=== PATIENT | female | born 1960 | race Caucasian/White ===

== ENCOUNTER 2017-06-15 03:27 | Emergency (ER) | payer BC ==
[~2017-06-15] VITALS: Ht 167.6 cm; Wt 65.9 kg
[2017-06-15 03:30] VITALS: BP 175/84; PULSE 99; RESP 16; TEMP 98.9; O2SAT 99
[2017-06-15] MEDS ORDERED: ONDANSETRON HCL 4 MG/2 ML VIAL IV PRN (03:45)
[2017-06-15] MEDS ORDERED: SODIUM CHLORIDE 0.9% FLUSH 10 ML FLUSH IV FLUSH PRN (03:45)
[2017-06-15] MEDS ORDERED: SODIUM CHLOR 0.9% 1000 ML INJ 1,000 ML IV ONE ×2 (04:15→04:30)
--- NOTE | 2017-06-15 04:23 | PD ---
HPI . Vomiting Chief Complaint: GI Complaint Time Seen by Provider: 03:45 Travel History International Travel<30 days: No Contact w/Intl Traveler<30days: No Traveled to known affect area: No History of Present Illness HPI This is a 57 year old female who presents to the [place] ED with 9 hours of sudden onset nausea and vomiting. She ate around 5pm and since then has had constant vomiting. She has trouble keeping water down. She is also complaining of diffuse abdominal pain and lightheadedness.She denies any fevers , chills, hematemesis, melena, or syncopal episodes. She has no past medical history and takes no medication. She is allergic to Penicillin and Sulfa. She states that the severity of her emesis has been constant vomiting. There have been no modifying factors. [facility] Past Medical History Medical History: Denies Significant Hx : 2 Para: 2 Tubal Ligation: Yes Past Surgical History Surgical History: No Previous Surgery Social History Alcohol Use: Yes (3-5 days a week) Tobacco Use: Yes (1ppd) Substance Use: No Allergies-Medications (Allergen,Severity, Reaction): Coded Allergies: Penicillins (Verified Allergy, Unknown, 06/15/17) Sulfa (Sulfonamide Antibiotics) (Verified Allergy, Unknown, 06/15/17) Reported Meds & Prescriptions Reported Meds & Active Scripts Active No Active Prescriptions or Reported Medications Review of Systems Except as stated in HPI: all other systems reviewed are Neg General / Constitutional: No: Fever, Chills HENT: Positive: Lightheadedness, Sore Throat, No: Headaches, Rhinorrhea, Congestion Cardiovascular: No: Chest Pain or Discomfort, Palpitations Respiratory: No: Cough, Shortness of Breath Gastrointestinal: Positive: Nausea, Vomiting, Abdominal Pain, No: Hematemesis, Hematochezia, Constipation Genitourinary: No: Urgency, Frequency, Hematuria Skin: No Rash Neurologic: Positive: Dizziness, No: Weakness, Syncope Physical Exam Narrative GENERAL: The patient was curled up on the exam bed. She appeared to be very nauseated. She is alert and oriented x3. SKIN: Warm and dry. Good turgor. Facial pallor. HEAD: Atraumatic. Normocephalic. EYES: Pupils equal and round. ENT: No nasal bleeding or discharge. Mucous membranes dry. NECK: Trachea midline. No lymphadenopathy. CARDIOVASCULAR: Regular rate and rhythm. No murmurs or extra beats. RESPIRATORY: No accessory muscle use. Clear to auscultation bilaterally GASTROINTESTINAL: Abdomen is soft and non distended. There is mild diffuse tenderness and focal suprapubic tenderness. Bowel sounds are active. MUSCULOSKELETAL: No obvious deformities. No edema. NEUROLOGICAL: Awake and alert. No obvious cranial nerve deficits. Motor grossly within normal limits. Normal speech. PSYCHIATRIC: Appropriate mood and affect; insight and judgment normal. Data Data Last Documented VS Vital Signs Date Time Temp Pulse Resp B/P (MAP) Pulse Ox O2 Delivery O2 Flow Rate FiO2 06/15/17 03:30 98.9 99 16 175/84 (114) 99 Room Air Orders Orders Vital Signs (Adult) Q4H (06/15/17 03:45) Activity Oob Ad Aminata (06/15/17 03:45) Sodium Chloride 0.9% Flush (Ns Flush) (06/15/17 03:45) Sodium Chloride 0.9% Flush (Ns Flush) (06/15/17 09:00) Ondansetron Inj (Zofran Inj) (06/15/17 03:45) Sodium Chlor 0.9% 1000 Ml Inj (Ns 1000 M (06/15/17 04:15) Urinalysis - C+S If Indicated (06/15/17 04:12) Sodium Chlor 0.9% 1000 Ml Inj (Ns 1000 M (06/15/17 04:30) Prochlorperazine Inj (Compazine Inj) (06/15/17 04:30) Diphenhydramine Inj (Benadryl Inj) (06/15/17 04:30) Complete Blood Count With Diff (06/15/17 05:18) Comprehensive Metabolic Panel (06/15/17 05:18) Labs Laboratory Tests Test 06/15/17 04:30 06/15/17 05:04 Urine Color YELLOW Urine Turbidity CLEAR Urine pH 6.0 Urine Specific Butner 1.026 Urine Protein TRACE mg/dL Urine Glucose (UA) TRACE mg/dL Urine Ketones 150 mg/dL Urine Occult Blood NEG Urine Nitrite NEG Urine Bilirubin NEG Urine Urobilinogen 4.0 MG/DL Urine Leukocyte Esterase NEG Urine RBC 1 /hpf Urine WBC 1 /hpf Urine Squamous Epithelial Cells 4 /hpf Urine Bacteria RARE /hpf Urine Hyaline Casts 2 /lpf Urine Mucus FEW /lpf Microscopic Urinalysis Comment CULT NOT INDICATED White Blood Count 19.3 TH/MM3 Red Blood Count 5.50 MIL/MM3 Hemoglobin 16.6 GM/DL Hematocrit 50.3 % Mean Corpuscular Volume 91.3 FL Mean Corpuscular Hemoglobin 30.1 PG Mean Corpuscular Hemoglobin Concent 33.0 % Red Cell Distribution Width 14.4 % Platelet Count 287 TH/MM3 Mean Platelet Volume 10.5 FL Neutrophils (%) (Auto) 94.0 % Lymphocytes (%) (Auto) 3.1 % Monocytes (%) (Auto) 2.5 % Eosinophils (%) (Auto) 0.0 % Basophils (%) (Auto) 0.4 % Neutrophils # (Auto) 18.1 TH/MM3 Lymphocytes # (Auto) 0.6 TH/MM3 Monocytes # (Auto) 0.5 TH/MM3 Eosinophils # (Auto) 0.0 TH/MM3 Basophils # (Auto) 0.1 TH/MM3 CBC Comment DIFF FINAL Differential Comment Blood Urea Nitrogen 15 MG/DL Creatinine 0.84 MG/DL Random Glucose 178 MG/DL Total Protein 8.1 GM/DL Albumin 4.1 GM/DL Calcium Level 9.4 MG/DL Alkaline Phosphatase 95 U/L Aspartate Amino Transf (AST/SGOT) 30 U/L Alanine Aminotransferase (ALT/SGPT) 30 U/L Total Bilirubin 0.8 MG/DL Sodium Level 136 MEQ/L Potassium Level 4.2 MEQ/L Chloride Level 100 MEQ/L Carbon Dioxide Level 23.8 MEQ/L Anion Gap 12 MEQ/L Estimat Glomerular Filtration Rate 70 ML/MIN MDM Medical Decision Making Medical Screen Exam Complete: Yes Emergency Medical Condition: Yes Differential Diagnosis Gastroenteritis, dehydration, food poisoning. Narrative Course This is a 57-year-old female who presents with sudden onset nausea and vomiting and abdominal pain. Prior to eating dinner around 5 PM she felt fine her and her then eat anything thing for dinner except she ate eggs too. She was given Zofran for Nausea and fluids for dehydration. The patient was initially treated with Zofran IV fluids. She continued to complain with nausea following Zofran. This was followed up with Compazine/ Benadryl. The patient is now resting comfortably. CBC & BMP Diagram 06/15/17 05:04 Total Protein 8.1, Albumin 4.1, Calcium Level 9.4, Alkaline Phosphatase 95, Aspartate Amino Transf (AST/SGOT) 30, Alanine Aminotransferase (ALT/SGPT) 30, Total Bilirubin 0.8 UA shows a specific gravity of 1.026, ketones 150. No evidence of infection. Diagnosis Primary Impression: Nausea & vomiting Qualified Codes: R11.2 - Nausea with vomiting, unspecified Additional Impression: Abdominal pain Qualified Codes: R10.84 - Generalized abdominal pain Patient Instructions: Acute Nausea and Vomiting (DC), General Instructions Scripts No Active Prescriptions or Reported Meds Disposition: 01 DISCHARGE HOME Condition: Stable Chetna Duggan MD Jun 15, 2017 04:22
[2017-06-15] MEDS ORDERED: PROCHLORPERAZINE INJ 10 MG/2 ML VIAL IV PUSH ONE (04:30)
[2017-06-15] MEDS ORDERED: diphenhydrAMINE HCL 50 MG/ML VIAL IV PUSH ONE (04:30)
[2017-06-15 04:51] LABS: BACTERIA, URINE RARE /hpf; BLOOD, URINE NEG (NEG); GLUCOSE,URINE TRACE mg/dL (NEG); HYALINE CAST, URINE 2 /lpf (RARE); KETONE, URINE 150 mg/dL (NEG); MUCUS URINE FEW /lpf (OCC); NITRITE,URINE NEG (NEG); SQUAMOUS EPITHELIAL CELL URINE 4 /hpf (0-5); URINE COLOR YELLOW (YELLW/STRAW)
[2017-06-15 04:57] LABS: COMMENT (UR) CULT NOT INDICATED; CULTURE IF INDICATED CULT NOT INDICATED
[2017-06-15 05:42] LABS: AUTOMATED NEUTROPHIL # 18.1 TH/MM3 (1.8-7.7); BASOPHIL # 0.1 TH/MM3 (0-0.2); BASOPHIL % 0.4 % (0.0-2.0); HEMATOCRIT 50.3 % (35.0-46.0); HEMO FLAGS DIFF FINAL; LYMPH % 3.1 % (9.0-44.0); LYMPHOCYTE # 0.6 TH/MM3 (1.0-4.8); MEAN CELL VOLUME 91.3 FL (80.0-100.0); MEAN CORPUSCULAR HEMOGLOBIN 30.1 PG (27.0-34.0); MONO % 2.5 % (0.0-8.0); PLATELET COUNT 287 TH/MM3 (150-450); RED CELL DISTRIBUTION WIDTH 14.4 % (11.6-17.2); WHITE BLOOD COUNT 19.3 TH/MM3 (4.0-11.0)
[2017-06-15 06:11] LABS: ALT (GPT) 30 U/L (10-53)
[2017-06-15 06:13] LABS: ALKALINE PHOSPHATASE 95 U/L (45-117); TOTAL BILIRUBIN ADULT 0.8 MG/DL (0.2-1.0)
[2017-06-15 06:18] LABS: ANION GAP 12 MEQ/L (5-15); AST (GOT) 30 U/L (15-37); BICARBONATE 23.8 MEQ/L (21.0-32.0); BLOOD UREA NITROGEN 15 MG/DL (7-18); CHLORIDE 100 MEQ/L (98-107); GLOMERULAR FILTRATION RATE 70 ML/MIN (>89); SODIUM (NA) 136 MEQ/L (136-145)
[2017-06-15 06:20] LABS: POTASSIUM 4.2 MEQ/L (3.5-5.1)
[2017-06-15] MEDS ORDERED: SODIUM CHLORIDE 0.9% FLUSH 10 ML FLUSH IV FLUSH SCH (09:00)
[2017-07-08] MEDS ORDERED: COMMODE 3-IN-11 MIS (14:11)
[2017-07-08] MEDS ORDERED: WHEEMIS3 (14:11)
[2017-07-13] MEDS ORDERED: ATOR1TAB18 PO (10:38)
[2017-07-13] MEDS ORDERED: ASPI81CH25 PO (10:38)
[2017-07-13] MEDS ORDERED: DILA100C PO (10:38)
== END 2017-06-15 10:52 | disposition home or self-care (01) ==
LOC: NEPC 03:27
DX: R11.2 Nausea with vomiting, unspecified (principal); R10.84 Generalized abdominal pain; R42 Dizziness and giddiness; F17.200 Nicotine dependence, unspecified, uncomplicated
CPT/HCPCS: 80053; 81001; 85025; 96374; 96375; 99284; J0780; J1200; J2405; J7030

== ENCOUNTER 2017-06-17 17:19 | Inpatient (IN) | payer BC ==
[~2017-06-17] VITALS: Ht 167.6 cm; Wt 65.4 kg
[2017-06-17 17:21] VITALS: BP 164/98; PULSE 108; RESP 20; TEMP 98.6; O2SAT 98
[2017-06-17 19:35] VITALS: BP 153/85; PULSE 87; RESP 14; O2SAT 96
[2017-06-17] MEDS ORDERED: SODIUM CHLORIDE 0.9% FLUSH 10 ML FLUSH IVF PRN ×2 (19:45→21:30)
--- NOTE | 2017-06-17 20:34 | RADRPT ---
EXAM DATE/TIME: 06/17/2017 20:22 [facility] COMPARISON: No previous studies available for comparison. INDICATIONS : Patient complains of headache and partial vision loss today. RADIATION DOSE: 30.62 CTDIvol (mGy) MEDICAL HISTORY : None SURGICAL HISTORY : Tubal ligation. ENCOUNTER: Initial ACUITY: 1 day PAIN SCALE: 0/10 LOCATION: cranial TECHNIQUE: Multiple contiguous axial images were obtained of the head. Using automated exposure control and adj ustment of the mA and/or kV according to patient size, radiation dose was kept as low as reasonably a chievable to obtain optimal diagnostic quality images. DICOM format image data is available electro nically for review and comparison. FINDINGS: CEREBRUM: The ventricles are normal for age. No evidence of midline shift, mass lesion, hemorrhage. There is a focal area of decreased density involving the medial right occipital lobe characteristic of a nonhem orrhagic subacute infarction.. No extra-axial fluid collections are seen. POSTERIOR FOSSA: The cerebellum and brainstem are intact. The 4th ventricle is midline. The cerebellopontine angle i s unremarkable. EXTRACRANIAL: The visualized portion of the orbits is intact. SKULL: The calvaria is intact. No evidence of skull fracture. CONCLUSION: There is an area of decreased density involving the medial right occipital lobe in a pattern characte ristic for a nonhemorrhagic subacute infarct. Henri Phan MD on June 17, 2017 at 20:29 Board Certified Radiologist. This report was verified electronically.
[2017-06-17 20:38] VITALS: RESP 17; O2SAT 97; O2SAT 98
[2017-06-17 20:39] LABS: AUTOMATED NEUTROPHIL # 5.4 TH/MM3 (1.8-7.7); BASOPHIL % 0.4 % (0.0-2.0); EOSINOPHIL # 0.1 TH/MM3 (0-0.4); EOSINOPHIL % 1.3 % (0.0-4.0); HEMATOCRIT 45.6 % (35.0-46.0); HEMO FLAGS DIFF FINAL; LYMPH % 22.9 % (9.0-44.0); LYMPHOCYTE # 1.8 TH/MM3 (1.0-4.8); MEAN CELL VOLUME 91.5 FL (80.0-100.0); MEAN CORPUSCULAR HGB CONC 32.8 % (32.0-36.0); MONO % 8.9 % (0.0-8.0); NEUT % 66.5 % (16.0-70.0); PLATELET COUNT 230 TH/MM3 (150-450); RED BLOOD COUNT 4.98 MIL/MM3 (4.00-5.30); RED CELL DISTRIBUTION WIDTH 14.3 % (11.6-17.2); WHITE BLOOD COUNT 8.1 TH/MM3 (4.0-11.0)
[2017-06-17 20:43] LABS: APTT (PATIENT) 24.6 SEC (24.3-30.1); INTERNATIONAL NORMALIZED RATIO 0.9 RATIO
--- NOTE | 2017-06-17 20:56 | PD ---
HPI Chief Complaint: Headache Time Seen by Provider: 19:41 Travel History International Travel<30 days: No Contact w/Intl Traveler<30days: No Traveled to known affect area: No History of Present Illness HPI 57-year-old female presents to the emergency department by private transportation the care of her spouse for evaluation of new onset left greater than right peripheral field visual loss. Patient states that starting late Thursday evening or early Thursday morning she started having multiple episodes of severe vomiting and some diarrhea. Patient was later seen on Thursday in the emergency department and treated for possible gastroenteritis with IV fluids and antiemetics. Patient was discharged to home and states she slept the remainder of Thursday through Thursday and upon awakening on Thursday noticed that she had some blurring of her vision affecting the left eye primarily said that she had difficulty seeing to the left on with her peripheral vision. Patient again was very tired and felt poorly did not go to work and slept the remainder of Thursday and awakened on Thursday stating that she could not see peripherally from her left eye at all and had some difficulty seeing peripherally from her right eye. Patient went to see her vocational rehabilitation specialist to examine her eyes and told her to come to the emergency room to be further evaluated. Patient denies any other complaint other than mild left-sided headache. Patient states on she did hit the back of her head while standing up near a bar in her home she hit the back of her head but did not have loss of consciousness visual disturbance nausea vomiting confusion or neck injury or upper or lower extremity numbness tingling or weakness or ataxia of gait. Patient today denies any sudden onset worst ever headache has noted the visual disturbance but denies any change in mentation difficulty with speech upper or lower extremity numbness tingling or weakness ataxia of gait or dizziness. Patient also denies any chest pain or palpitations. Patient's had no referred neck jaw back shoulder arm pain. Patient denies any shortness of breath or sweats. Patient denies any chest pain at this time. Patient does smoke cigarettes but denies personal history of hypertension dyslipidemia or diabetes. Patient has family history of multi-infarct dementia and her mother who just recently at age 87 with hypertension but no premature onset heart disease. Patient denies any other known medical concerns. Patient takes no prescription medications. [facility] Past Medical History Narrative Medical Occasional alcohol use positive tobacco use tubal ligation; nursing notes reviewed ?: Not : 2 Para: 2 Tubal Ligation: Yes Past Surgical History Gynecologic Surgery: Yes (tubal ) Social History Alcohol Use: Yes Tobacco Use: Yes Substance Use: No Allergies-Medications (Allergen,Severity, Reaction): Coded Allergies: Penicillins (Verified Allergy, Unknown, 06/15/17) Sulfa (Sulfonamide Antibiotics) (Verified Allergy, Unknown, 06/15/17) Reported Meds & Prescriptions Reported Meds & Active Scripts Active No Active Prescriptions or Reported Medications Review of Systems Except as stated in HPI: all other systems reviewed are Neg General / Constitutional: No: Fever, Chills Eyes: Positive: Blurred Vision, Visual changes, No: Diploplia HENT: Positive: Headaches, No: Vertigo, Lightheadedness, Neck Stiffness, Neck Pain Cardiovascular: No: Chest Pain or Discomfort, Palpitations, Diaphoresis, Syncope Respiratory: No: Shortness of Breath Gastrointestinal: Positive: Nausea, Vomiting, Diarrhea (Thursday and Thursday) Genitourinary: No: Dysuria, Flank Pain Musculoskeletal: No: Myalgias, Arthralgias Skin: No Rash Neurologic: Positive: Focal Abnormalities (except for visual disturbance), Headache, No: Weakness, Dizziness, Syncope, Coordination Problem, Ataxia, Change in Mentation, Slurred Speech (yesterday and today), Paresthesia, Incontinence, Seizures, Sensory Disturbance Psychiatric: No: Anxiety Endocrine: No: Heat Intolerance Hematologic/Lymphatic: No: Easy Bruising Physical Exam Narrative GENERAL: Well-developed well-nourished female in no acute distress no respiratory distress; GCS 15 SKIN: Warm and dry. HEAD: Atraumatic. Normocephalic. EYES: Pupils equal and round. Extraocular muscles intact. No scleral icterus. No injection or drainage. ENT: No nasal bleeding or discharge. Mucous membranes pink and moist. NECK: Trachea midline. No JVD. CARDIOVASCULAR: Regular rate and rhythm. RESPIRATORY: No accessory muscle use. Clear to auscultation. Breath sounds equal bilaterally. GASTROINTESTINAL: Abdomen soft, non-tender, nondistended. Hepatic and splenic margins not palpable. MUSCULOSKELETAL: Extremities without clubbing, cyanosis, or edema. No obvious deformities. NEUROLOGICAL: Awake and alert. No obvious cranial nerve deficits except for obvious field deficit left upper and lower outer quadrant visual loss right upper outer quadrant visual loss. Motor grossly within normal limits. Five out of 5 muscle strength in the arms and legs. Sensory exam intact. DTRs 2+ and equal bilateral upper extremity's and lower extremities. No pronator drift. No limb ataxia. Normal speech. PSYCHIATRIC: Appropriate mood and affect; insight and judgment normal. Data Data Last Documented VS Vital Signs Date Time Temp Pulse Resp B/P (MAP) Pulse Ox O2 Delivery O2 Flow Rate FiO2 06/17/17 20:38 98 21 06/17/17 20:38 17 Room Air 06/17/17 19:35 87 06/17/17 17:21 98.6 Orders Orders Electrocardiogram (06/17/17 19:41) Prothrombin Time / Inr (Pt) (06/17/17 19:41) Act Partial Throm Time (Ptt) (06/17/17 19:41) Complete Blood Count With Diff (06/17/17 19:41) Basic Metabolic Panel (Bmp) (06/17/17 19:41) Troponin I (06/17/17 19:41) Ct Brain W/O Iv Contrast(Rout) (06/17/17 19:41) Ecg Monitoring (06/17/17 19:41) Iv Access Insert/Monitor (06/17/17 19:41) Oximetry (06/17/17 19:41) Sodium Chloride 0.9% Flush (Ns Flush) (06/17/17 19:45) Ckmb (Isoenzyme) Profile (06/17/17 21:13) Admit Order (Ed Use Only) (06/17/17 ) ^ Saline Lock (06/17/17 21:23) Resp Oxygen Ronak C Titrat 1-4 L (06/17/17 ) Notify Dr: Other (06/17/17 21:23) Sodium Chloride 0.9% Flush (Ns Flush) (06/18/17 09:00) Sodium Chloride 0.9% Flush (Ns Flush) (06/17/17 21:30) Consult Neurology (06/17/17 ) Labs Laboratory Tests Test 06/17/17 20:25 White Blood Count 8.1 TH/MM3 Red Blood Count 4.98 MIL/MM3 Hemoglobin 15.0 GM/DL Hematocrit 45.6 % Mean Corpuscular Volume 91.5 FL Mean Corpuscular Hemoglobin 30.0 PG Mean Corpuscular Hemoglobin Concent 32.8 % Red Cell Distribution Width 14.3 % Platelet Count 230 TH/MM3 Mean Platelet Volume 9.3 FL Neutrophils (%) (Auto) 66.5 % Lymphocytes (%) (Auto) 22.9 % Monocytes (%) (Auto) 8.9 % Eosinophils (%) (Auto) 1.3 % Basophils (%) (Auto) 0.4 % Neutrophils # (Auto) 5.4 TH/MM3 Lymphocytes # (Auto) 1.8 TH/MM3 Monocytes # (Auto) 0.7 TH/MM3 Eosinophils # (Auto) 0.1 TH/MM3 Basophils # (Auto) 0.0 TH/MM3 CBC Comment DIFF FINAL Differential Comment Prothrombin Time 10.0 SEC Prothromb Time International Ratio 0.9 RATIO Activated Partial Thromboplast Time 24.6 SEC Blood Urea Nitrogen 8 MG/DL Creatinine 0.83 MG/DL Random Glucose 85 MG/DL Calcium Level 9.2 MG/DL Sodium Level 141 MEQ/L Potassium Level 3.8 MEQ/L Chloride Level 106 MEQ/L Carbon Dioxide Level 29.5 MEQ/L Anion Gap 6 MEQ/L Estimat Glomerular Filtration Rate 71 ML/MIN Total Creatine Kinase 74 U/L Troponin I 0.48 NG/ML MDM Medical Decision Making Medical Screen Exam Complete: Yes Emergency Medical Condition: Yes Medical Record Reviewed: Yes Interpretation(s) EKG: NSR rate 80 with anterolateral ischemic changes inverted T waves I, V3-V6 Last Impressions Head CT 06/17/171940 Signed Impressions: Service Date/Time: Saturday, June 17, 2017 20:22 - CONCLUSION: There is an area of decreased density involving the medial right occipital lobe in a pattern characteristic for a nonhemorrhagic subacute infarct. Henri Phan MD Vital Signs Date Time Temp Pulse Resp B/P (MAP) Pulse Ox O2 Delivery O2 Flow Rate FiO2 06/17/17 20:38 17 97 Room Air 06/17/17 19:35 87 14 153/85 (107) 96 Room Air 06/17/17 19:29 Room Air 06/17/17 17:21 98.6 108 20 164/98 (120) 98 Room Air Troponin I 0.48, elevated Differential Diagnosis hemianopsia, cva, acs, mi Narrative Course IV access obtained specimens collected and sent for resulting Patient sent for CT and per reading radiologist patient has evidence of a bland right occipital infarct no obvious evidence of hemorrhage Patient's case discussed with on-call neurology because patient to be started on aspirin and consult in a.m. for neurology and MRI and further inpatient evaluation discussed w dr Sigala --requests call to neurolgy re: heparin --per Dr Brennan if needed heparin low dose no bolus-- [facility] informed of recommendation Critical Care Narrative Aggregate critical care time was 30 minutes. Time to perform other separately billable procedures was not included in the critical care time. My time did not include minutes spent treating any other patients simultaneously or on activities that did not directly contribute to the patient's treatment. The services I provided to this patient were to treat and/or prevent clinically significant deterioration that could result in: CVA, intracranial bleed, I provided critical care services requiring my management, as noted below: Chart data review, documentation time, medication orders and management, vital sign assessments/reviewing monitor data, ordering and reviewing lab tests, ordering and interpreting/reviewing x-rays and diagnostic studies, care of the patient and discussion of the patient with the admitting physicians. Physician Communication Physician Communication call to neurology Dr Brennan start aspirin inpt w/u; call to [facility] will admit -- discussed again w/ neurology Diagnosis Primary Impression: Occipital infarction Additional Impression: Elevated troponin I level Admitting Information Admitting Physician Requests: Admit Scripts No Active Prescriptions or Reported Meds Fadia Pantoja MD Jun 17, 2017 20:56
[2017-06-17 21:00] LABS: BICARBONATE 29.5 MEQ/L (21.0-32.0); POTASSIUM 3.8 MEQ/L (3.5-5.1)
[2017-06-17] MEDS ORDERED: SODIUM CHLORIDE 0.9% FLUSH 5 ML FLUSH IV FLUSH PRN (21:45)
[2017-06-17 22:21] LABS: CREATINE KINASE 74 U/L (26-192)
[2017-06-17] MEDS ORDERED: ASPIRIN 81 MG CHEW TAB CHEW ONE (23:00)
--- NOTE | 2017-06-17 23:04 | RADRPT ---
EXAM DATE/TIME: 06/17/2017 22:10 [facility] COMPARISON: No previous studies available for comparison. INDICATIONS : CVA. MEDICAL HISTORY : None. SURGICAL HISTORY : Tubal ligation. ENCOUNTER: Initial ACUITY: 1 day PAIN SCORE: 3/10 LOCATION: Bilateral lateral side of both eyes. Please note a normal MRA of the brain does not entirely exclude the possibility of a small aneurysm, nor the possibility of distal intracranial vessel disease. TECHNIQUE: 3D time of flight MRA was performed. Source images, multiplanar STS MIP, and 3D volume MIP reconstru ctions were reviewed. FINDINGS: There is diminished flow in the distal right posterior cerebral artery distribution which correlates with the MR findings of infarction in this area. The left posterior cerebral artery and both anterior and middle cerebral arteries are patent. Basilar artery and distal internal carotid arteries are pat ent. CONCLUSION: 1. Diminished flow in the distal right posterior cerebral artery distribution probably related to an occlusion or partial occlusion which correlates with MR findings of infarct in the medial occipital l obe. No other vascular occlusions identified. Michael Campbell MD on June 17, 2017 at 22:59 Board Certified Radiologist. This report was verified electronically.
--- NOTE | 2017-06-17 23:12 | RADRPT ---
EXAM DATE/TIME: 06/17/2017 22:10 [facility] COMPARISON: No previous studies available for comparison. INDICATIONS : CVA. MEDICAL HISTORY : None. SURGICAL HISTORY : Tubal ligation. ENCOUNTER: Initial ACUITY: 4-6 days PAIN SCORE: 4/10 LOCATION: Bilateral lateral side of both eyes. TECHNIQUE: Multiplanar, multisequence MRI of the brain was performed without contrast. FINDINGS: There is an acute or subacute infarct involving the medial right occipital lobe. No other acute infar cts. No significant mass effect or shift. No hydrocephalus. No hemorrhage. CONCLUSION: 1. Acute or subacute infarct involving the medial right occipital lobe without mass effect or hemorrh age. Michael Campbell MD on June 17, 2017 at 23:09 Board Certified Radiologist. This report was verified electronically.
[2017-06-17] MEDS: ACETAMINOPHEN 325 MG TAB PO PRN (23:36)
[2017-06-18] VITALS (9 sets, daily range): BP systolic 103–135; BP diastolic 59–70; PULSE 63–82; RESP 18; TEMP 97–99.4; O2SAT 95–97
--- NOTE | 2017-06-18 01:23 | RADRPT ---
EXAM DATE/TIME: 06/17/2017 22:27 [facility] COMPARISON: No previous studies available for comparison. INDICATIONS : Cerebrovascular accident. MEDICAL HISTORY : Hemianopsia. Migraine. SURGICAL HISTORY : Tubal ligation. ENCOUNTER: Initial ACUITY: 1 day PAIN SCORE: 0/10 LOCATION: Bilateral neck PEAK SYSTOLIC VELOCITIES (cm/sec): ICA/CCA RATIO: Right: 1.2 Left: 1.7 ICA: Right: 89 Left: 137 CCA: Right: 82 Left: 83 ECA: Right: 106 Left: 74 VERTEBRAL: Right: 45 antegrade Left: 47 antegrade Elevated flow velocities and ICA/CCA ratios have been found to correlate with increased degrees of vessel stenosis, calculated as percentage of diameter relative to a normal segment of distal ICA/CCA FINDINGS: RIGHT CAROTID: No significant stenosis is visualized. The waveforms are within normal limits. LEFT CAROTID: No significant stenosis is visualized. The waveforms are within normal limits. VERTEBRAL ARTERIES: Antegrade flow is seen in both vertebral arteries. MISCELLANEOUS: None. CONCLUSION: 1. Mild plaque in the carotid arteries bilaterally. No hemodynamically significant stenosis. Vertebra l artery flow antegrade bilaterally. Michael Campbell MD on June 18, 2017 at 1:21 Board Certified Radiologist. This report was verified electronically.
--- NOTE | 2017-06-18 02:28 | HHI.HP ---
HPI Service [facility] Primary Care Physician Renu Reyes, DO Admission Diagnosis Occiptal infarct, R w/ hemianopsia; elevated troponin I Diagnoses: (1) Occipital infarction (2) Abnormal EKG (3) Elevated troponin I level Chief Complaint: Loss of vision, blurry vision, headache Travel History International Travel<30 Days: No Contact w/Intl Traveler <30 Da: No Traveled to Known Affected Are: No History of Present Illness Written by Nena Martinez, acting as scribe for Dr. Sigala on 06/18/17 at 02:23. Patient reports nausea, vomiting, and diarrhea 06/15/17 - came to ED and was d/c' d home with anti-emetics. She had a headache with blurry vision on with loss of left peripheral vision and right hemianopsia. She went to the eye doctor and he told her to go to ED after evaluation. Denies diaphoresis, shortness of breath, chest pain, or palpitations. Last couple of weeks: denies nausea, vomiting, dizziness, or syncope. The patient states that she is normally in very good health and does not take any medications routinely. . Review of Systems Except as stated in HPI: all other systems reviewed are Neg Past Family Social History Past Medical History Headaches - chronic (usually resolves with PRN Claritin D) Denies diabetes, hypertension, heart problems, breathing problems, liver or kidney problems, CVA, seizures . Past Surgical History BTL . Reported Medications Denies any routine medications . Allergies: Coded Allergies: Penicillins (Verified Allergy, Unknown, 06/15/17) Sulfa (Sulfonamide Antibiotics) (Verified Allergy, Unknown, 06/15/17) Active Ordered Medications Current Medications Sodium Chloride (NS Flush) 2 ml UNSCH PRN IVF FLUSH AFTER USING IV ACCESS; Start 06/17/17 at 19:45; Stop 06/17/17 at 21:46; Status DC Sodium Chloride (NS Flush) 2 ml BID IV FLUSH ; Start 06/18/17 at 09:00 Sodium Chloride (NS Flush) 2 ml UNSCH PRN IVF FLUSH AFTER USING IV ACCESS; Start 06/17/17 at 21:30 Aspirin (Aspirin Chew) 162 mg DAILY CHEW ; Start 06/18/17 at 09:00; Stop at 09:00; Status DC IV Flush (NS Flush) 2 ml BID IV FLUSH ; Start 06/18/17 at 09:00; Stop 06/18/17 at 09:00; Status DC IV Flush (NS Flush) 2 ml UNSCH PRN IV FLUSH FLUSH AFTER USING IV ACCESS; Start 06/17/17 at 21:45; Stop 06/17/17 at 21:46; Status DC Aspirin (Ecotrin Ec) 325 mg DAILY PO ; Start 06/18/17 at 09:00 Aspirin (Aspirin Chew) 162 mg ONCE ONCE CHEW Last administered on 06/17/17t 23 :37; Start 06/17/17 at 23:00; Stop 06/17/17 at 23:01; Status DC Acetaminophen (Tylenol) 650 mg Q4H PRN PO pain , headaches Last administered on 06/17/17 23:36; Start 06/17/17 at 23:00 . Family History Mother with CVA, hypertension Father 90 y/o, alive and well . Social History Tobacco: smokes 1/2 PPD Alcohol: drinks wine - not daily - 2 - 3 glasses when she does drink Illicit Drugs: Denies . Physical Exam Vital Signs Vital Signs Date Time Temp Pulse Resp B/P (MAP) Pulse Ox O2 Delivery O2 Flow Rate FiO2 06/18/17 00:00 99.4 82 18 110/62 (78) 97 06/17/17 20:38 98 21 06/17/17 20:38 17 97 Room Air 06/17/17 19:35 87 14 153/85 (107) 96 Room Air 06/17/17 19:29 Room Air 06/17/17 17:21 98.6 108 20 164/98 (120) 98 Room Air Physical Exam GENERAL: This is a well-nourished, well-developed patient, in no apparent distress. SKIN: No rashes, ecchymoses or lesions. Cool and dry. HEAD: Atraumatic. Normocephalic. EYES: Pupils equal round and reactive. No scleral icterus. No injection or drainage. ENT: Nose without bleeding, purulent drainage. Airway patent. NECK: Trachea midline. No JVD. CARDIOVASCULAR: Regular rate and rhythm without murmurs, gallops, or rubs. RESPIRATORY: Clear to auscultation. Breath sounds equal bilaterally. No wheezes , rales, or rhonchi. GASTROINTESTINAL: Abdomen soft, non-tender, nondistended. No guarding. MUSCULOSKELETAL: Extremities without clubbing, cyanosis, or edema. No calf tenderness. NEUROLOGICAL: Awake and alert. Motor and sensory grossly within normal limits. Normal speech. . Laboratory Laboratory Tests Test 06/17/17 20:25 White Blood Count 8.1 Red Blood Count 4.98 Hemoglobin 15.0 Hematocrit 45.6 Mean Corpuscular Volume 91.5 Mean Corpuscular Hemoglobin 30.0 Mean Corpuscular Hemoglobin Concent 32.8 Red Cell Distribution Width 14.3 Platelet Count 230 Mean Platelet Volume 9.3 Neutrophils (%) (Auto) 66.5 Lymphocytes (%) (Auto) 22.9 Monocytes (%) (Auto) 8.9 Eosinophils (%) (Auto) 1.3 Basophils (%) (Auto) 0.4 Neutrophils # (Auto) 5.4 Lymphocytes # (Auto) 1.8 Monocytes # (Auto) 0.7 Eosinophils # (Auto) 0.1 Basophils # (Auto) 0.0 CBC Comment DIFF FINAL Differential Comment Prothrombin Time 10.0 Prothromb Time International Ratio 0.9 Activated Partial Thromboplast Time 24.6 Blood Urea Nitrogen 8 Creatinine 0.83 Random Glucose 85 Calcium Level 9.2 Sodium Level 141 Potassium Level 3.8 Chloride Level 106 Carbon Dioxide Level 29.5 Anion Gap 6 Estimat Glomerular Filtration Rate 71 Total Creatine Kinase 74 Troponin I 0.48 Result Diagram: 06/17/17202406/17/172024 Imaging Last Impressions Head CT 06/17/17 194 Signed Impressions: Service Date/Time: Saturday, June 17, 2017 20:22 - CONCLUSION: There is an area of decreased density involving the medial right occipital lobe in a pattern characteristic for a nonhemorrhagic subacute infarct. Henri Phan MD Head Magnetic Resonance Angiography 06/17/17 0000 Signed Impressions: Service Date/Time: Saturday, June 17, 2017 22:10 - CONCLUSION: 1. Diminished flow in the distal right posterior cerebral artery distribution probably related to an occlusion or partial occlusion which correlates with MR findings of infarct in the medial occipital lobe. No other vascular occlusions identified. Michael Campbell MD Carotid Artery Ultrasound 06/17/17 0000 Signed Impressions: Service Date/Time: Saturday, June 17, 2017 22:27 - CONCLUSION: 1. Mild plaque in the carotid arteries bilaterally. No hemodynamically significant stenosis. Vertebral artery flow antegrade bilaterally. Michael Campbell MD Brain MRI 06/17/17 0000 Signed Impressions: Service Date/Time: Saturday, June 17, 2017 22:10 - CONCLUSION: 1. Acute or subacute infarct involving the medial right occipital lobe without mass effect or hemorrhage. Michael Campbell MD . Caprini VTE Risk Assessment Caprini VTE Risk Assessment: Mod/High Risk (score >= 2) Caprini Risk Assessment Model Point Value = 1 Point Value = 2 Point Value = 3 Point Value = 5 Age 41-60 Minor surgery BMI > 25 kg/m2 Swollen legs Varicose veins or History of unexplained or recurrent spontaneous Oral contraceptives or hormone replacement Sepsis (< 1 month) Serious lung disease, including pneumonia (< 1 month) Abnormal pulmonary function Acute myocardial infarction Congestive heart failure (< 1 month) History of inflammatory bowel disease Medical patient at bed rest Age 61-74 Arthroscopic surgery Major open surgery (> 45 min) Laparoscopic surgery (> 45 min) Malignancy Confined to bed (> 72 hours) Immobilizing plaster cast Central venous access Age >= 75 History of VTE Family history of VTE Factor V Leiden Prothrombin [id number] Lupus anticoagulant Anticardiolipin antibodies Elevated serum homocysteine Heparin-induced thrombocytopenia Other congenital or acquired thrombophilia Stroke (< 1 month) Elective arthroplasty Hip, pelvis, or leg fracture Acute spinal cord injury (< 1 month) Prophylaxis Regimen Total Risk Factor Score Risk Level Prophylaxis Regimen 0-1 Low Early ambulation 2 Moderate Order ONE of the following: *Sequential Compression Device (SCD) *Heparin 5000 units SQ BID 3-4 Higher Order ONE of the following medications: *Heparin 5000 units SQ TID *Enoxaparin/Lovenox 40 mg SQ daily (WT < 150 kg, CrCl > 30 mL/min) *Enoxaparin/Lovenox 30 mg SQ daily (WT < 150 kg, CrCl > 10-29 mL/min) *Enoxaparin/Lovenox 30 mg SQ BID (WT < 150 kg, CrCl > 30 mL/min) AND/OR *Sequential Compression Device (SCD) 5 or more Highest Order ONE of the following medications: *Heparin 5000 units SQ TID (Preferred with Epidurals) *Enoxaparin/Lovenox 40 mg SQ daily (WT < 150 kg, CrCl > 30 mL/min) *Enoxaparin/Lovenox 30 mg SQ daily (WT < 150 kg, CrCl > 10-29 mL/min) *Enoxaparin/Lovenox 30 mg SQ BID (WT < 150 kg, CrCl > 30 mL/min) AND *Sequential Compression Device (SCD) Assessment and Plan Problem List: (1) Occipital infarction ICD Code: I63.9 - Cerebral infarction, unspecified Status: Acute (2) Abnormal EKG ICD Code: R94.31 - Abnormal electrocardiogram [ECG] [EKG] Status: Acute (3) Elevated troponin I level ICD Code: R74.8 - Abnormal levels of other serum enzymes Status: Acute Assessment and Plan Occipital infarction - consult neurology - Head CT: medial right occipital lobe with area of decreased density in a pattern c/w nonhemorrhagic subacute infarct. - Brain MRI: acute or subacute infarct involving the medial right occipital lobe without mass effect or hemorrhage - Brain MRA: diminished flow distal right posterior cerebral artery distribution probably related to an occlusion or partial occlusion correlating with brain MRI finding of infarct in medial occipital lobe. - Carotid ultrasound: mild plaque in bilateral carotid arteries, not hemodynamically significant. - consult stroke navigator - consult rehabilitation medicine - check HgA1C to eval for diabetes - check lipid profile to eval for hyperlipidemia - neuro checks q4h - NIH stroke scale daily - Aspirin 325 mg daily Abnormal EKG - denies chest pain - Troponin I 0.48 on initial presentation - EKG personally reviewed with V3, V,4, V5, V6 with t-wave inversions - trend serial EKGs and cardiac enzymes to r/o ACS - continuous cardiac telemetry to monitor for arrhythmias - consult cardiology Tobacco Abuse - strongly counseled regarding cessation DVT prophylaxis - Lovenox 40 mg subq daily . This note was transcribed by mi [Nena Martinez]. I, Dr. Grzegorz Sigala personally performed the history, physical exam, and medical decision making; and confirmed the accuracy of the information in the transcribed note. Authenticated by Dr. Grzegorz Sigala on 06/18/17 at 02:23. Discussed Condition With ER physician and patient . Physician Certification 2 Midnight Certification Type: Admission for Inpatient Services Order for Inpatient Services The services are ordered in accordance with Medicare regulations or non- Medicare payer requirements, as applicable. In the case of services not specified as inpatient-only, they are appropriately provided as inpatient services in accordance with the 2-midnight benchmark. Estimated LOS (days): 3 days is the estimated time the patient will need to remain in the hospital, assuming treatment plan goals are met and no additional complications. Post-Hospital Plan: Home Nena Martinez Jun 18, 2017 02:28 Grzegorz Sigala MD Jun 18, 2017 03:45
[2017-06-18] MEDS: ACETAMINOPHEN 325 MG TAB PO PRN ×3 (03:18→16:47)
[2017-06-18 03:40] LABS: HDL CHOLESTEROL 43.7 MG/DL (40.0-60.0); LDL CHOLESTEROL 164 MG/DL (0-99)
--- NOTE | 2017-06-18 08:27 | EKG ---
Date Performed: 06/17/2017 Time Performed: 20:15:27 PTAGE: 57 years EKG: Sinus rhythm LEFT ANTERIOR FASCICULAR BLOCK MARKED T-WAVE ABNORMALITY, CONSIDER ANTEROLATERAL ISCHEMIA ABNORMAL E CG NO PREVIOUS TRACING DOCTOR: Unruly Martinez Interpretating Date/Time 06/18/2017 08:25:09
[2017-06-18] MEDS: ASPIRIN EC 325 MG TABEC PO SCH (08:59)
[2017-06-18] MEDS: SODIUM CHLORIDE 0.9% FLUSH 10 ML FLUSH IV FLUSH SCH ×2 (08:59→21:00)
[2017-06-18] MEDS ORDERED: ASPIRIN 81 MG CHEW TAB CHEW SCH (09:00)
[2017-06-18] MEDS ORDERED: SODIUM CHLORIDE 0.9% FLUSH 5 ML FLUSH IV FLUSH SCH (09:00)
--- NOTE | 2017-06-18 11:03 | EKG ---
Date Performed: 06/18/2017 Time Performed: 08:29:17 PTAGE: 57 years EKG: Sinus rhythm LEFT ANTERIOR FASCICULAR BLOCK T-WAVE ABNORMALITY, CONSIDER ANTEROLATERAL ISCHEMIA T-WAVE ABNORMALIT Y, CONSIDER INFERIOR ISCHEMIA ABNORMAL ECG PREVIOUS TRACING : 06/18/2017 03.32 No significant change from previous tracing noted. DOCTOR: Unruly Martinez Interpretating Date/Time 06/18/2017 11:03:09
--- NOTE | 2017-06-18 11:09 | EKG ---
Date Performed: 06/18/2017 Time Performed: 03:32:24 PTAGE: 57 years EKG: Sinus rhythm T wave abnormality, consider anterolateral ischemia Left axis deviation Abnormal ECG PREVIOUS TRACING : 06/17/2017 20.15 No significant change from previous tracing noted. DOCTOR: Unruly Martinez Interpretating Date/Time 06/18/2017 11:07:39
--- NOTE | 2017-06-18 11:22 | MB ---
cc: ELIECER GAITAN DO DATE OF CONSULTATION 06/18/2017 REASON FOR CONSULTATION CVA, elevated troponin, abnormal EKG. HISTORY OF PRESENT ILLNESS Zonia Hills is a pleasant 57-year-old female who originally presented to [facility] emergency room on June 15, 2017 due to uncontrolled nausea and vomiting. At that time, she was found to be dehydrated and was given anti-nausea medication, as well as IV fluids. She went home and slept most of the day. On June 16, she woke up and had a headache which was similar to her normal sinus headache. Then on June 17 she woke up around 09:00 a.m. and was having trouble seeing out of the left side of both her eyes. She was seen by an assistant professor of drama as she has a friend or family member that works there and no cause was found so she was sent to the emergency room. In seeing her, she is currently hemodynamically stable with no chest pain, shortness of breath or palpitations. In discussing this with her, she has had no chest pain, shortness of breath or palpitations in the past. PAST MEDICAL HISTORY 1. Sinus headaches 2. Tobacco abuse PAST SURGICAL HISTORY BTL ALLERGIES 1. PENICILLIN 2. SULFA MEDICATIONS Denies FAMILY HISTORY Denies premature coronary artery disease or sudden cardiac within the family. SOCIAL HISTORY The patient smokes a half-a-pack of cigarettes daily, is willing to quit. She drinks two to three glasses of wine when does drink, but it is not daily. Denies illicit drug abuse. REVIEW OF SYSTEMS 14-systems were reviewed including osteopathic pertinent positives and negatives as above, otherwise negative. PHYSICAL EXAMINATION VITAL SIGNS: Temperature 97.0, heart rate 63, blood pressure 111/59, respirations 18, pulse ox 97% on room air. GENERAL: The patient appears well in no acute distress, alert awake and oriented x3. HEAD, EYES, EARS, NOSE, AND THROAT: Extraocular muscles intact. Left sided peripheral vision loss for both eyes. Mucous membranes moist. NECK: Supple. No JVD at 45 degrees. No carotid bruits heard bilaterally. Carotid upstroke is brisk in nature. HEART: Regular rate and rhythm. Positive first and second heart sounds with no murmurs, gallops or rubs. LUNGS: Clear to auscultation bilaterally. No wheezes, rales or rhonchi. ABDOMEN: Soft, nontender and nondistended. No organomegaly noted. EXTREMITIES: Show no clubbing, cyanosis or edema. Femoral and distal pulses are intact bilaterally. NEUROLOGIC: No focal deficits other than peripheral vision loss. SKIN: Warm, dry and intact. OSTEOPATHIC: No kyphoscoliosis, lordosis or paraspinal tender points. LABORATORY FINDINGS Hemoglobin 15.0, hematocrit 45.6, platelets 230. Potassium 3.8, BUN 8, creatinine 0.83, troponin 0.48 decreasing to 0.36, triglycerides 148, total cholesterol 237, LDL 164, HDL 43.7. Electrocardiogram (June 18, 2017 at 0829) sinus rhythm, left anterior fascicular block, ST-T wave changes laterally possibly due to ischemia. IMPRESSIONS 1. Acute ischemic CVA involving the medial right occipital lobe by MRI and clinically. 2. Abnormal EKG with ST-T wave changes possibly due to ischemia versus secondary to CVA. 3. Elevated troponin secondary to CVA. 4. Hyperlipidemia 5. Tobacco abuse RECOMMENDATIONS 1. Ms. Hills appears to have had an acute CVA and we will wait further recommendations from neurology. 2. As far as her elevated troponin and EKG changes, this is usually secondary to her CVA. At this time, she is not a revascularization candidate and she seems to have no symptoms which would speak more to secondary cause from CVA. She can followup in the office for further considerations of stress testing once through the acute period of CVA. 3. We will check a 2-D echo to look at her overall left ventricular function, cardiac structure and possible valvopathies. 4. Agree with placing her on aspirin and would place her on high-dose statin therapy, as well as consideration of TR inhibitor therapy. 5. She will be watched on telemetry while here to further determine if she has episodes of atrial fibrillation. If no cause for her stroke is found, consideration could be made for an outpatient 30-day event monitor versus loop recorder. This was discussed with the patient and we will plan to follow up. 6. I spoke to her for greater than three minutes about tobacco cessation which she is in agreement stopping at this time. Thank you for allowing me to Zoniauysuf Hills. If there are any questions, please do not hesitate to call. Eliecer Gaitan DO VGP/DJL /10:55 AM /11:10 AM
[2017-06-18] MEDS ORDERED: PILL SPLITTER OTHER PRN (11:45)
[2017-06-18 12:08] LABS: HEMOGLOBIN A1a 1.1 %; HEMOGLOBIN A1b 0.9 %; HEMOGLOBIN Ao 84.8 %; HEMOGLOBIN P3 3.9 %
--- NOTE | 2017-06-18 12:52 | HHI.PR ---
Subjective Remarks in no acute distress. still with some vision loss bilaterally. no other complaints. Objective Vitals Vital Signs Date Time Temp Pulse Resp B/P (MAP) Pulse Ox O2 Delivery O2 Flow Rate FiO2 06/18/17 08:42 97.0 63 18 111/59 (76) 97 06/18/17 08:01 65 06/18/17 05:56 63 06/18/17 04:00 98.7 71 18 103/64 (77) 96 06/18/17 00:00 99.4 82 18 110/62 (78) 97 06/17/17 20:38 98 21 06/17/17 20:38 17 97 Room Air 06/17/17 19:35 87 14 153/85 (107) 96 Room Air 06/17/17 19:29 Room Air 06/17/17 17:21 98.6 108 20 164/98 (120) 98 Room Air Result Diagram: 06/17/17202406/17/172024 Imaging Last Impressions Head CT 06/17/17 194 Signed Impressions: Service Date/Time: Saturday, June 17, 2017 20:22 - CONCLUSION: There is an area of decreased density involving the medial right occipital lobe in a pattern characteristic for a nonhemorrhagic subacute infarct. Henri Phan MD Head Magnetic Resonance Angiography 06/17/17 0000 Signed Impressions: Service Date/Time: Saturday, June 17, 2017 22:10 - CONCLUSION: 1. Diminished flow in the distal right posterior cerebral artery distribution probably related to an occlusion or partial occlusion which correlates with MR findings of infarct in the medial occipital lobe. No other vascular occlusions identified. Michael Campbell MD Carotid Artery Ultrasound 06/17/17 Signed Impressions: Service Date/Time: Saturday, June 17, 2017 22:27 - CONCLUSION: 1. Mild plaque in the carotid arteries bilaterally. No hemodynamically significant stenosis. Vertebral artery flow antegrade bilaterally. Michael Campbell MD Brain MRI 06/17/17 Signed Impressions: Service Date/Time: Saturday, June 17, 2017 22:10 - CONCLUSION: 1. Acute or subacute infarct involving the medial right occipital lobe without mass effect or hemorrhage. Michael Campbell MD Objective Remarks GENERAL: This is a well-nourished, well-developed patient, in no apparent distress. CARDIOVASCULAR: Regular rate and regular rhythm without murmurs, gallops, or rubs. RESPIRATORY: Clear to auscultation. Breath sounds equal bilaterally. No wheezes , rales, or rhonchi. GASTROINTESTINAL: Abdomen soft, non-tender, nondistended. Normal, active bowel sounds MUSCULOSKELETAL: Extremities without clubbing, cyanosis, or edema. NEURO: Alert & Oriented x4 to person, place, time, situation. Moves all ext x4 Medications and IVs Current Medications Sodium Chloride (NS Flush) 2 ml UNSCH PRN IVF FLUSH AFTER USING IV ACCESS; Start 06/17/17 at 19:45; Stop 06/17/17 at 21:46; Status DC Sodium Chloride (NS Flush) 2 ml BID IV FLUSH Last administered on 06/18/17 08: 59; Start 06/18/17 at 09:00 Sodium Chloride (NS Flush) 2 ml UNSCH PRN IVF FLUSH AFTER USING IV ACCESS; Start 06/17/17 at 21:30 Aspirin (Aspirin Chew) 162 mg DAILY CHEW ; Start 06/18/17 at 09:00; Stop at 09:00; Status DC IV Flush (NS Flush) 2 ml BID IV FLUSH ; Start 06/18/17 at 09:00; Stop 06/18/17 at 09:00; Status DC IV Flush (NS Flush) 2 ml UNSCH PRN IV FLUSH FLUSH AFTER USING IV ACCESS; Start 06/17/17 at 21:45; Stop 06/17/17 at 21:46; Status DC Aspirin (Ecotrin Ec) 325 mg DAILY PO Last administered on 06/18/17 08:59; Start 06/18/17 at 09:00 Aspirin (Aspirin Chew) 162 mg ONCE ONCE CHEW Last administered on 06/17/17 23 :37; Start 06/17/17 at 23:00; Stop 06/17/17 at 23:01; Status DC Acetaminophen (Tylenol) 650 mg Q4H PRN PO pain , headaches Last administered on 06/18/17 11:43; Start 06/17/17 at 23:00 Atorvastatin Calcium (Lipitor) 80 mg HS PO ; Start 06/18/17 at 21:00 Lisinopril (Prinivil) 2.5 mg DAILY PO ; Start 8/25/17 at 09:00 Miscellaneous (Pill Splitter) 1 ea UNSCH PRN OTHER SEE LABEL COMMENTS; Start at 11:45 A/P Assessment and Plan A/P Occipital infarction - consulted neurology - Head CT: medial right occipital lobe with area of decreased density in a pattern c/w nonhemorrhagic subacute infarct. - Brain MRI: acute or subacute infarct involving the medial right occipital lobe without mass effect or hemorrhage - Brain MRA: diminished flow distal right posterior cerebral artery distribution probably related to an occlusion or partial occlusion correlating with brain MRI finding of infarct in medial occipital lobe. - Carotid ultrasound: mild plaque in bilateral carotid arteries, not hemodynamically significant. - consulted stroke navigator - consulted rehabilitation medicine - check HgA1C to eval for diabetes - neuro checks q4h - continue Aspirin 325 mg daily and high-intensity statin Abnormal EKG - denies chest pain - Troponin I 0.48 on initial presentation - cardiology consult appreciated; plan for f/u as outpatient; echo pending. Tobacco Abuse - strongly counseled regarding cessation DVT prophylaxis - Lovenox 40 mg subq daily Loli Hays MD Jun 18, 2017 12:52
--- NOTE | 2017-06-18 16:38 | ECHRPT ---
Indication: CVA/TIA CONCLUSIONS The left ventricular systolic function is low normal with an estimated ejection fraction in the rang e of 50- 55%. Wall thickness is measured at the upper limits of normal. Normal left ventricular size. The pulmonary valve is not well visualized. BP: 111 / 59 HR: 63 Rhythm: Sinus MEASUREMENTS (Male / Female) Normal Values Technical Quality:Good 2D ECHO LV Diastolic Diameter PLAX 5.1 cm 4.2 - 5.9 / 3.9 - 5.3 cm LV Systolic Diameter PLAX 3.9 cm IVS Diastolic Thickness 1.1 cm 0.6 - 1.0 / 0.6 - 0.9 cm LVPW Diastolic Thickness 1.1 cm 0.6 - 1.0 / 0.6 - 0.9 cm LV Relative Wall Thickness 0.4 RV Internal Dim ED PLAX 1.5 cm LVOT Diameter 2.0 cm M-MODE Aortic Root Diameter MM 3.3 cm LA Systolic Diameter MM 2.3 cm LA Ao Ratio MM 0.7 AV Cusp Separation MM 1.7 cm DOPPLER AV Peak Velocity 122.0 cm/s AV Peak Gradient 6.0 mmHg LVOT Peak Velocity 91.8 cm/s LVOT Peak Gradient 3.4 mmHg AV Area Cont Eq pk 2.4 cm Mitral E Point Velocity 77.5 cm/s Mitral A Point Velocity 66.1 cm/s Mitral E to A Ratio 1.2 PV Peak Velocity 88.2 cm/s PV Peak Gradient 3.1 mmHg FINDINGS LEFT VENTRICLE The left ventricular systolic function is low normal with an estimated ejection fraction in the rang e of 50- 55%. Wall thickness is measured at the upper limits of normal. Normal left ventricular size. RIGHT VENTRICLE Normal right ventricular size and systolic function. LEFT ATRIUM The left atrial size is normal. RIGHT ATRIUM The right atrial size is normal. ATRIAL SEPTUM Normal atrial septal thickness without atrial level shunting by limited color doppler interrogation. AORTA The aortic root and proximal ascending aorta are normal in size on limited imaging. MITRAL VALVE Structurally normal mitral valve. No mitral valve stenosis or regurgitation. AORTIC VALVE Trileaflet aortic valve. No aortic valve stenosis or regurgitation. TRICUSPID VALVE Structurally normal tricuspid valve. No tricuspid valve stenosis or regurgitation. PULMONARY VALVE The pulmonary valve is not well visualized. VESSELS The inferior vena cava is normal in size. PERICARDIUM No pericardial effusion. Harinder Morales MD, FACC (Electronically Signed) Final Date:18 June 2017 16:37
[2017-06-18] MEDS ORDERED: GLUCAGON 1 MG/ML VIAL OTHER PRN (17:15)
[2017-06-18] MEDS ORDERED: DEXTROSE 50% IN WATER 50 ML VIAL(D50) IV PUSH PRN (17:15)
[2017-06-18] MEDS ORDERED: SODIUM CHLORIDE 0.9% FLUSH 5 ML FLUSH IV FLUSH PRN (17:15)
--- NOTE | 2017-06-18 17:48 | MB ---
cc: IRMA GREWAL M.D. DATE OF CONSULTATION: 06/18/2017. REASON FOR CONSULTATION: Stroke. HISTORY OF PRESENT ILLNESS: Ms. Hills is a very nice 57-year-old woman who was recently in the hospital with vomiting and diarrhea and nausea and went home with antiemetics. On Thursday, she began to notice difficulty with her vision and trouble seeing to the left, which was more prevalent on Thursday so she saw an office correspondent who found that she had a left hemianopsia and recommended going to the emergency room. She does relate hitting her head last fairly abruptly but no loss of consciousness. PAST MEDICAL HISTORY: History of chronic headaches. No other medical history. MEDICATIONS AT HOME: None. ALLERGIES: 1. PENICILLIN. 2. SULFA. NEUROLOGIC EXAMINATION: VITAL SIGNS: Blood pressure is 123/70, pulse 77, respirations 18, temperature 98.3 degrees. HIGHER CORTICAL FUNCTIONS: Normal. CRANIAL NERVES: She has a left homonymous hemianopsia. Other cranial nerves are normal. The pupils are 2 mm symmetric and reactive. The extraocular movements are intact. MOTOR: Normal strength of all groups. There is no drift. Fine motor skills are normal. REFLEXES: Symmetric. IMAGING STUDIES: CT of the brain - low density medial right occipital lobe. No hemorrhage. MRI of the brain is consistent with a subacute infarct in the right occipital cortex medially. 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 Carotid ultrasound shows mild plaque in the carotids but no significant stenosis. LABS: White count 8100, hemoglobin 15, hematocrit 45.6%, platelets 230,000. Sodium is 141, potassium 3.8, chloride 106, carbon dioxide 29.5, the BUN is 8, creatinine 0.83, GFR is 71, cholesterol 237, LDL 164, triglycerides 148. PT 10. INR 0.98. APTT 24.6. Echocardiogram shows an ejection fraction of 50% to 55%. Normal left ventricular size, no mural thrombus. IMPRESSION: Right occipital stroke. RECOMMENDATIONS: 1. Aspirin 375 mg daily. 2. Monitor cardiac telemetry. 4. Rule out atrial fibrillation. 5. Start statin because of the elevated LDL. 6. Will also get a CT angiogram of the arteries and the neck to rule out dissection. 7. Also recommend transesophageal echocardiogram for further evaluation. MD JANNA Kee/TRAM /5:12 PM /5:37 PM
[2017-06-18] MEDS ORDERED: IOHEXOL 350 MG/ML 10 ML VIAL (for RAD DIAG) IVCONTRAST ONE (20:07)
--- NOTE | 2017-06-18 20:50 | RADRPT ---
EXAM DATE/TIME: 06/18/2017 19:49 [facility] COMPARISON: MRA BRAIN W/O CONTRAST, June 17, 2017, 22:10. MRI BRAIN W/O CONTRAST, June 17, 2017, 22:10. INDICATIONS : Headaches and vision loss. IV CONTRAST: 75 cc Omnipaque 350 (iohexol) IV ; Cumulative dose for multiple exams. RADIATION DOSE: 14.35 CTDIvol (mGy) ; Combined studies MEDICAL HISTORY : None SURGICAL HISTORY : Tubal ligation. ENCOUNTER: Initial ACUITY: 4 - 6 days PAIN SCALE: 3/10 LOCATION: Bilateral cranial TECHNIQUE: Volumetric scanning was performed using a multi-row detector CT scanner. The data was post processed with a variety of visualization algorithms including full volume maximum intensity projection, multi -planar sliding thin slab reformation, curved planar reformation, and surface rendering techniques. Using automated exposure control and adjustment of the mA and/or kV according to patient size, radiat ion dose was kept as low as reasonably achievable to obtain optimal diagnostic quality images. DICO M format image data is available electronically for review and comparison. FINDINGS: Anterior circulation: The internal carotid arteries demonstrate no abnormality or atherosclerotic change. A1 segments and m ore distal anterior cerebral arteries are symmetric and within normal limits. The middle cerebral art julio branches demonstrate symmetric enhancement. No aneurysm or high-grade stenosis is identified. Posterior circulation: There are patent posterior cerebral arteries bilaterally. These appear symmetric. Vertebral arteries are codominant. The basilar artery and posterior cerebral arteries demonstrate no significant stenosi s or abnormality. No aneurysm is visualized. CONCLUSION: No acute intracranial vascular abnormality is identified. The posterior cerebral artery blood flow ap pears symmetric on the current study. Charlie Kang MD on June 18, 2017 at 20:44 Board Certified Radiologist. This report was verified electronically.
--- NOTE | 2017-06-18 20:53 | RADRPT ---
EXAM DATE/TIME: 06/18/2017 19:49 [facility] COMPARISON: US CAROTID ARTERIES, June 17, 2017, 22:27. INDICATIONS : Headaches for four days. IV CONTRAST: 75 cc Omnipaque 350 (iohexol) IV ; Cumulative dose for multiple exams. RADIATION DOSE: 14.35 CTDIvol (mGy) ; Combined studies MEDICAL HISTORY : None SURGICAL HISTORY : Tubal ligation. ENCOUNTER: Initial ACUITY: 4 - 6 days PAIN SCALE: 3/10 LOCATION: Bilateral cranial Elevated flow velocities and ICA/CCA ratios have been found to correlate with increased degrees of vessel stenosis, calculated as percentage of diameter relative to a normal segment of distal ICA/CCA. TECHNIQUE: Volumetric scanning was performed using a multirow detector CT scanner. The data was post processed with a variety of visualization algorithms including full-volume maximum intensity projection, multip lanar sliding thin-slab reformation, curved-planar reformation, and surface-rendering techniques. Us ing automated exposure control and adjustment of the mA and/or kV according to patient size, radiatio n dose was kept as low as reasonably achievable to obtain optimal diagnostic quality images. DICOM f ormat image data is available electronically for review and comparison. FINDINGS: AORTIC ARCH: There is a three-vessel origin of the great vessels from the aorta. No evidence of ostial narrowing. RIGHT CAROTID: Common carotid artery is within normal limits. No atherosclerotic disease is present. Carotid bulb is normal without atherosclerotic change. Both internal and external carotid artery demonstrate no sign ificant atherosclerotic disease or stenosis. LEFT CAROTID: Common carotid artery is within normal limits. No atherosclerotic disease is present. Carotid bulb is normal without atherosclerotic change. Both internal and external carotid artery demonstrate no sign ificant atherosclerotic disease or stenosis. VERTEBRALS: Vertebral arteries are symmetric. There is mild atherosclerotic disease in the proximal right vertebr al artery. The visualized bony structures demonstrate no acute finding. CONCLUSION: No significant atherosclerotic change or stenosis is present within the neck arterial vasculature. Charlie Kang MD on June 18, 2017 at 20:49 Board Certified Radiologist. This report was verified electronically.
[2017-06-18] MEDS: SODIUM CHLORIDE 0.9% FLUSH 5 ML FLUSH IV FLUSH SCH (21:00)
[2017-06-18] MEDS: INSULIN ASPART SUPPLEMENTAL SCALE SQ SCH (21:00)
[2017-06-18] MEDS: ATORVASTATIN 80 MG TAB PO SCH (21:40)
[2017-06-19] VITALS (8 sets, daily range): BP systolic 95–140; BP diastolic 50–69; PULSE 58–93; RESP 16–20; TEMP 97.6–98.7; O2SAT 91–99
[2017-06-19] MEDS: INSULIN ASPART SUPPLEMENTAL SCALE SQ SCH ×4 (07:00→21:00)
[2017-06-19] MEDS ORDERED: PROPOFOL 200 MG/20 ML AMP IV ONE (08:23)
[2017-06-19] MEDS: SODIUM CHLORIDE 0.9% FLUSH 5 ML FLUSH IV FLUSH SCH ×2 (09:00→23:00)
[2017-06-19] MEDS ORDERED: LISINOPRIL 5 MG TAB PO SCH (09:00)
[2017-06-19] MEDS: SODIUM CHLORIDE 0.9% FLUSH 10 ML FLUSH IV FLUSH SCH ×2 (09:00→21:00)
[2017-06-19] MEDS: ASPIRIN EC 325 MG TABEC PO SCH (09:48)
--- NOTE | 2017-06-19 11:03 | HHI.PR ---
Subjective Remarks resting comfortably with no distress. no new complaints. no change in her vision. Objective Vitals Vital Signs Date Time Temp Pulse Resp B/P (MAP) Pulse Ox O2 Delivery O2 Flow Rate FiO2 06/19/17 09:53 97 06/19/17 08:00 98.1 86 18 113/54 (73) 95 06/19/17 05:06 98.3 58 18 95/50 (65) 96 06/19/17 00:16 98.6 66 16 132/60 (84) 96 06/18/17 20:52 98.3 70 18 135/64 (87) 97 06/18/17 20:00 70 06/18/17 16:52 98.2 77 18 123/70 (87) 95 06/18/17 12:49 98.1 68 18 116/69 (85) 97 Result Diagram: 06/17/17202406/17/172024 Imaging Last Impressions Neck CTA 06/18/17 0000 Signed Impressions: Service Date/Time: May 19:49 - CONCLUSION: No significant atherosclerotic change or stenosis is present within the neck arterial vasculature. Charlie Kang MD Head CTA 06/18/17 0000 Signed Impressions: Service Date/Time: May 19:49 - CONCLUSION: No acute intracranial vascular abnormality is identified. The posterior cerebral artery blood flow appears symmetric on the current study. Charlie Kang MD Head CT 06/17/17 194 Signed Impressions: Service Date/Time: Saturday, June 17, 2017 20:22 - CONCLUSION: There is an area of decreased density involving the medial right occipital lobe in a pattern characteristic for a nonhemorrhagic subacute infarct. Henri Phan MD Head Magnetic Resonance Angiography 06/17/17 0000 Signed Impressions: Service Date/Time: Saturday, June 17, 2017 22:10 - CONCLUSION: 1. Diminished flow in the distal right posterior cerebral artery distribution probably related to an occlusion or partial occlusion which correlates with MR findings of infarct in the medial occipital lobe. No other vascular occlusions identified. Michael Campbell MD Carotid Artery Ultrasound 06/17/17 0000 Signed Impressions: Service Date/Time: Saturday, June 17, 2017 22:27 - CONCLUSION: 1. Mild plaque in the carotid arteries bilaterally. No hemodynamically significant stenosis. Vertebral artery flow antegrade bilaterally. Michael Campbell MD Brain MRI 06/17/17 0000 Signed Impressions: Service Date/Time: Saturday, June 17, 2017 22:10 - CONCLUSION: 1. Acute or subacute infarct involving the medial right occipital lobe without mass effect or hemorrhage. Michael Campbell MD Objective Remarks GENERAL: This is a well-nourished, well-developed patient, in no apparent distress. CARDIOVASCULAR: Regular rate and regular rhythm without murmurs, gallops, or rubs. RESPIRATORY: Clear to auscultation. Breath sounds equal bilaterally. No wheezes , rales, or rhonchi. GASTROINTESTINAL: Abdomen soft, non-tender, nondistended. Normal, active bowel sounds MUSCULOSKELETAL: Extremities without clubbing, cyanosis, or edema. NEURO: Alert & Oriented x4 to person, place, time, situation. Moves all ext x4 Medications and IVs Current Medications Sodium Chloride (NS Flush) 2 ml UNSCH PRN IVF FLUSH AFTER USING IV ACCESS; Start 06/17/17 at 19:45; Stop 06/17/17 at 21:46; Status DC Sodium Chloride (NS Flush) 2 ml BID IV FLUSH Last administered on 06/18/17 08: 59; Start 06/18/17 at 09:00 Sodium Chloride (NS Flush) 2 ml UNSCH PRN IVF FLUSH AFTER USING IV ACCESS; Start 06/17/17 at 21:30 Aspirin (Aspirin Chew) 162 mg DAILY CHEW ; Start 06/18/17 at 09:00; Stop at 09:00; Status DC IV Flush (NS Flush) 2 ml BID IV FLUSH ; Start 06/18/17 at 09:00; Stop 06/18/17 at 09:00; Status DC IV Flush (NS Flush) 2 ml UNSCH PRN IV FLUSH FLUSH AFTER USING IV ACCESS; Start 06/17/17 at 21:45; Stop 06/17/17 at 21:46; Status DC Aspirin (Ecotrin Ec) 325 mg DAILY PO Last administered on 06/19/17 09:48; Start 06/18/17 at 09:00 Aspirin (Aspirin Chew) 162 mg ONCE ONCE CHEW Last administered on 06/17/17 23 :37; Start 06/17/17 at 23:00; Stop 06/17/17 at 23:01; Status DC Acetaminophen (Tylenol) 650 mg Q4H PRN PO pain , headaches Last administered on 06/18/17 16:47; Start 06/17/17 at 23:00 Atorvastatin Calcium (Lipitor) 80 mg HS PO Last administered on 06/18/17 21:40 ; Start 06/18/17 at 21:00 Lisinopril (Prinivil) 2.5 mg DAILY PO ; Start 06/19/17 at 09:00 Miscellaneous (Pill Splitter) 1 ea UNSCH PRN OTHER SEE LABEL COMMENTS; Start at 11:45 IV Flush (NS Flush) 2 ml BID IV FLUSH Last administered on 06/18/17 21:00; Start 06/18/17 at 21:00 IV Flush (NS Flush) 2 ml UNSCH PRN IV FLUSH FLUSH AFTER USING IV ACCESS; Start 06/18/17 at 17:15 Insulin Aspart (NovoLOG SUPPLEMENTAL SCALE) 1 ACHS SQ ; Start 06/18/17 at 21:00 Dextrose (D50w (Vial) Inj) 50 ml UNSCH PRN IV PUSH HYPOGLYCEMIA-SEE COMMENTS; Start 06/18/17 at 17:15 Glucagon (Glucagon Inj) 1 mg UNSCH PRN OTHER HYPOGLYCEMIA-SEE COMMENTS; Start 06/18/17 at 17:15 Iohexol (Omnipaque 350 Inj) 75 ml STK-MED ONCE IVCONTRAST Last administered on 06/18/17 20:07; Start 06/18/17 at 20:07; Stop 06/18/17 at 20:08; Status DC A/P Assessment and Plan A/P Occipital infarction - Head CT: medial right occipital lobe with area of decreased density in a pattern c/w nonhemorrhagic subacute infarct. - Brain MRI: acute or subacute infarct involving the medial right occipital lobe without mass effect or hemorrhage - Brain MRA: diminished flow distal right posterior cerebral artery distribution probably related to an occlusion or partial occlusion correlating with brain MRI finding of infarct in medial occipital lobe. - Carotid ultrasound: mild plaque in bilateral carotid arteries, not hemodynamically significant. -CTA neck with no significant stenosis -CTA head with no acute intracranial vascular abnormality - consulted stroke navigator - consulted rehabilitation medicine - HgA1C 5.9 - continue Aspirin 325 mg daily and high-intensity statin -plan for CECI today -hypercoagulable state panel pending -neurology and cardiology following. Abnormal EKG - denies chest pain - Troponin I 0.48 on initial presentation - cardiology consult appreciated; plan for f/u as outpatient. -echo with EF 55% Tobacco Abuse - strongly counseled regarding cessation DVT prophylaxis - Lovenox 40 mg subq daily Discharge Planning dc home when cleared by cardiology and neurology. awaiting CECI. Loli Hays MD Jun 19, 2017 11:03
[2017-06-19] MEDS ORDERED: ASPI325T33 PO (11:05)
[2017-06-19] MEDS ORDERED: ATOR1TAB18 PO (11:05)
[2017-06-19] MEDS: ACETAMINOPHEN 325 MG TAB PO PRN (11:56)
--- NOTE | 2017-06-19 16:45 | HHI.PR ---
Review/Management Diagnosis occipital cva Plan continue aspirin CECI follow up the hypercoag labs. Diagnosis/Plan: Subjective Subjective Comments No acute events reported Active Medications Current Medications Medications (Trade) Dose Ordered Sig/Doreen Route Start Time Stop Time Status Last Admin (NS Flush) 2 ml BID IV FLUSH 06/18/17 09:00 06/19/17 09:00 (NS Flush) 2 ml UNSCH PRN IVF 06/17/17 21:30 (Ecotrin Ec) 325 mg DAILY PO 06/18/17 09:00 06/19/17 09:48 (Tylenol) 650 mg Q4H PRN PO 06/17/17 23:00 06/19/17 11:56 (Lipitor) 80 mg HS PO 06/18/17 21:00 06/18/17 21:40 (Prinivil) 2.5 mg DAILY PO 06/19/17 09:00 (Pill Splitter) 1 ea UNSCH PRN OTHER 06/18/17 11:45 (NS Flush) 2 ml BID IV FLUSH 06/18/17 21:00 06/19/17 09:00 (NS Flush) 2 ml UNSCH PRN IV FLUSH 06/18/17 17:15 (NovoLOG SUPPLEMENTAL SCALE) 1 ACHS SQ 06/18/17 21:00 (D50w (Vial) Inj) 50 ml UNSCH PRN IV PUSH 06/18/17 17:15 (Glucagon Inj) 1 mg UNSCH PRN OTHER 06/18/17 17:15 Allergies Allergies Coded Allergies Penicillins (Verified Allergy, Unknown, 06/15/17) Sulfa (Sulfonamide Antibiotics) (Verified Allergy, Unknown, 06/15/17) Exam I&O / VS Vital Signs Date Time Temp Pulse Resp B/P (MAP) Pulse Ox O2 Delivery O2 Flow Rate FiO2 06/19/17 12:00 98.7 65 20 140/68 (92) 99 06/19/17 09:53 97 06/19/17 08:00 98.1 86 18 113/54 (73) 95 06/19/17 05:06 98.3 58 18 95/50 (65) 96 06/19/17 00:16 98.6 66 16 132/60 (84) 96 06/18/17 20:52 98.3 70 18 135/64 (87) 97 06/18/17 20:00 70 8/24/17 16:52 98.2 77 18 123/70 (87) 95 Exam Comments without change Objective Radiology Results CTA neck and brain --no dissection Micro and Labs Laboratory Tests Test 06/19/17 09:26 Kanu Aguilar PhD Jun 19, 2017 16:45
--- NOTE | 2017-06-19 20:10 | PD.CARD.PN ---
Subjective Subjective Remarks Patient seen earlier Post-CECI No change in visual field deficits Objective Medications Current Medications Medications (Trade) Dose Ordered Sig/Doreen Route Start Time Stop Time Status Last Admin (NS Flush) 2 ml BID IV FLUSH 06/18/17 09:00 06/19/17 09:00 (NS Flush) 2 ml UNSCH PRN IVF 06/17/17 21:30 (Ecotrin Ec) 325 mg DAILY PO 06/18/17 09:00 06/19/17 09:48 (Tylenol) 650 mg Q4H PRN PO 06/17/17 23:00 06/19/17 11:56 (Lipitor) 80 mg HS PO 06/18/17 21:00 06/18/17 21:40 (Prinivil) 2.5 mg DAILY PO 06/19/17 09:00 (Pill Splitter) 1 ea UNSCH PRN OTHER 06/18/17 11:45 (NS Flush) 2 ml BID IV FLUSH 06/18/17 21:00 06/19/17 09:00 (NS Flush) 2 ml UNSCH PRN IV FLUSH 06/18/17 17:15 (NovoLOG SUPPLEMENTAL SCALE) 1 ACHS SQ 06/18/17 21:00 (D50w (Vial) Inj) 50 ml UNSCH PRN IV PUSH 06/18/17 17:15 (Glucagon Inj) 1 mg UNSCH PRN OTHER 06/18/17 17:15 Vital Signs / I&O Vital Signs Date Time Temp Pulse Resp B/P (MAP) Pulse Ox O2 Delivery O2 Flow Rate FiO2 06/19/17 16:00 97.6 93 20 121/69 (86) 91 06/19/17 12:00 98.7 65 20 140/68 (92) 99 06/19/17 09:53 97 06/19/17 08:00 98.1 86 18 113/54 (73) 95 06/19/17 08:00 72 06/19/17 05:06 98.3 58 18 95/50 (65) 96 06/19/17 00:16 98.6 66 16 132/60 (84) 96 06/18/17 20:52 98.3 70 18 135/64 (87) 97 Physical Exam GENERAL: NAD, AAOx3 SKIN: Warm and dry. HEAD: Atraumatic. Normocephalic. EYES: Pupils equal and round. No scleral icterus. No injection or drainage. ENT: No nasal bleeding or discharge. Mucous membranes pink and moist. NECK: Trachea midline. No JVD. CARDIOVASCULAR: Regular rate and rhythm. RESPIRATORY: No accessory muscle use. Clear to auscultation. Breath sounds equal bilaterally. GASTROINTESTINAL: Abdomen soft, non-tender, nondistended. Hepatic and splenic margins not palpable. MUSCULOSKELETAL: Extremities without clubbing, cyanosis, or edema. No obvious deformities. NEUROLOGICAL: Awake and alert. Visual field deficits with no change. Motor grossly within normal limits. Five out of 5 muscle strength in the arms and legs. Normal speech. PSYCHIATRIC: Appropriate mood and affect; insight and judgment normal. Laboratory Laboratory Tests Test 06/19/17 09:26 Assessment and Plan Problem List: (1) Occipital infarction ICD Codes: I63.9 - Cerebral infarction, unspecified Status: Acute (2) Elevated troponin I level ICD Codes: R74.8 - Abnormal levels of other serum enzymes Status: Acute (3) Abnormal EKG ICD Codes: R94.31 - Abnormal electrocardiogram [ECG] [EKG] Status: Acute Assessment and Plan 1) Occipital CVA CECI - No PFO/ASD, no apical thrombus, no left atrial appendage thrombus noted ASA/Statin/TR-I Further work up per Neuro 2) Elevated troponin/EKG changes Secondary to CVA Con't medical management Not a revascularization candidate 3) No further cardiovascular issues, will see PRN Call with questions 4) Follow up in the office with me in 2-4 weeks Consider event recorder Eventual stress test Eliecer Mccoy DO Jun 19, 2017 20:10
--- NOTE | 2017-06-19 20:45 | ECHRPT ---
Indication: cva/tia CONCLUSIONS The left ventricular systolic function is low normal with an estimated ejection fraction in the rang e of 50- 55%. Normal left atrial appendage size with no evidence of thrombus formation. No atrial level shunt is observed with agitated saline contrast administration. BP: / HR: Rhythm: Sinus Technical Quality:Good Medications Complications There were no complications prior to, during or in recovery from the transesophag eal echocardiogram.. Proc. Components Anesthesia at the bedside for sedation. FINDINGS LEFT VENTRICLE The left ventricular systolic function is low normal with an estimated ejection fraction in the rang e of 50- 55%. Normal left ventricular size. RIGHT VENTRICLE Normal right ventricular size and systolic function. LEFT ATRIUM The left atrial size is probably normal. ATRIAL APPENDAGES Normal left atrial appendage size with no evidence of thrombus formation. ATRIAL SEPTUM No atrial level shunt is observed with agitated saline contrast administration. AORTA The aortic root and proximal ascending aorta are normal in size on limited imaging. MITRAL VALVE Structurally normal mitral valve. No mitral valve stenosis or regurgitation. AORTIC VALVE Trileaflet aortic valve. No aortic valve regurgitation. No aortic valve stenosis. TRICUSPID VALVE Structurally normal tricuspid valve. No tricuspid regurgitation. No tricuspid valve stenosis. VESSELS The pulmonary valve is not well visualized. Eliecer Mccoy DO (Electronically Signed) Final Date:19 June 2017 20:43
[2017-06-19] MEDS: ATORVASTATIN 80 MG TAB PO SCH (22:54)
[2017-06-20 01:31] VITALS: BP 129/63; PULSE 59; RESP 20; TEMP 98.5; O2SAT 97
[2017-06-20 05:57] VITALS: BP 143/78; PULSE 65; RESP 20; TEMP 97.9; O2SAT 97
[2017-06-20] MEDS: ACETAMINOPHEN 325 MG TAB PO PRN ×2 (06:57→14:36)
[2017-06-20] MEDS: INSULIN ASPART SUPPLEMENTAL SCALE SQ SCH (07:00)
[2017-06-20 08:00] VITALS: BP 106/57; PULSE 59; RESP 16; TEMP 98.2; O2SAT 95
[2017-06-20] MEDS: ASPIRIN EC 325 MG TABEC PO SCH (09:54)
[2017-06-20 12:00] VITALS: BP 132/63; PULSE 64; RESP 17; TEMP 98; O2SAT 95
--- NOTE | 2017-06-20 12:30 | HHI.PR ---
Subjective Remarks f/u; CVA in no acute distress. no new complaints. Objective Vitals Vital Signs Date Time Temp Pulse Resp B/P (MAP) Pulse Ox O2 Delivery O2 Flow Rate FiO2 06/20/17 08:00 98.2 59 16 106/57 (73) 95 06/20/17 05:57 97.9 65 20 143/78 (99) 97 06/20/17 01:31 98.5 59 20 129/63 (85) 97 06/19/17 22:39 96 21 06/19/17 20:57 98.6 62 20 137/66 (89) 97 06/19/17 16:00 97.6 93 20 121/69 (86) 91 I/O 06/19/17 06/19/17 06/19/17 06/20/17 06/20/17 06/20/17 07:00 15:00 23:00 07:00 15:00 23:00 Output Total 1 ml Balance -1 ml Output Stool Total 1 ml # Voids 2 3 1 # Bowel Movements 0 Result Diagram: 06/17/17202406/17/172024 Imaging Last Impressions Neck CTA 06/18/17 0000 Signed Impressions: Service Date/Time: May 19:49 - CONCLUSION: No significant atherosclerotic change or stenosis is present within the neck arterial vasculature. Charlie Kang MD Head CTA 06/18/17 0000 Signed Impressions: Service Date/Time: May 19:49 - CONCLUSION: No acute intracranial vascular abnormality is identified. The posterior cerebral artery blood flow appears symmetric on the current study. Charlie Kang MD Head CT 06/17/17 194 Signed Impressions: Service Date/Time: Saturday, June 17, 2017 20:22 - CONCLUSION: There is an area of decreased density involving the medial right occipital lobe in a pattern characteristic for a nonhemorrhagic subacute infarct. Henri Phan MD Head Magnetic Resonance Angiography 06/17/17 0000 Signed Impressions: Service Date/Time: Saturday, June 17, 2017 22:10 - CONCLUSION: 1. Diminished flow in the distal right posterior cerebral artery distribution probably related to an occlusion or partial occlusion which correlates with MR findings of infarct in the medial occipital lobe. No other vascular occlusions identified. Michael Campbell MD Carotid Artery Ultrasound 06/17/17 0000 Signed Impressions: Service Date/Time: Saturday, June 17, 2017 22:27 - CONCLUSION: 1. Mild plaque in the carotid arteries bilaterally. No hemodynamically significant stenosis. Vertebral artery flow antegrade bilaterally. Michael Campbell MD Brain MRI 06/17/17 0000 Signed Impressions: Service Date/Time: Saturday, June 17, 2017 22:10 - CONCLUSION: 1. Acute or subacute infarct involving the medial right occipital lobe without mass effect or hemorrhage. Michael Campbell MD Objective Remarks GENERAL: This is a well-nourished, well-developed patient, in no apparent distress. CARDIOVASCULAR: Regular rate and regular rhythm without murmurs, gallops, or rubs. RESPIRATORY: Clear to auscultation. Breath sounds equal bilaterally. No wheezes , rales, or rhonchi. GASTROINTESTINAL: Abdomen soft, non-tender, nondistended. Normal, active bowel sounds MUSCULOSKELETAL: Extremities without clubbing, cyanosis, or edema. NEURO: Alert & Oriented x4 to person, place, time, situation. Moves all ext x4 Procedures CECI Medications and IVs Current Medications Sodium Chloride (NS Flush) 2 ml UNSCH PRN IVF FLUSH AFTER USING IV ACCESS; Start 06/17/17 at 19:45; Stop 06/17/17 at 21:46; Status DC Sodium Chloride (NS Flush) 2 ml BID IV FLUSH Last administered on 06/19/17 09: 00; Start 06/18/17 at 09:00 Sodium Chloride (NS Flush) 2 ml UNSCH PRN IVF FLUSH AFTER USING IV ACCESS; Start 06/17/17 at 21:30 Aspirin (Aspirin Chew) 162 mg DAILY CHEW ; Start 06/18/17 at 09:00; Stop at 09:00; Status DC IV Flush (NS Flush) 2 ml BID IV FLUSH ; Start 06/18/17 at 09:00; Stop 06/18/17 at 09:00; Status DC IV Flush (NS Flush) 2 ml UNSCH PRN IV FLUSH FLUSH AFTER USING IV ACCESS; Start 06/17/17 at 21:45; Stop 06/17/17 at 21:46; Status DC Aspirin (Ecotrin Ec) 325 mg DAILY PO Last administered on 06/20/17 09:54; Start 06/18/17 at 09:00 Aspirin (Aspirin Chew) 162 mg ONCE ONCE CHEW Last administered on 06/17/17 23 :37; Start 06/17/17 at 23:00; Stop 06/17/17 at 23:01; Status DC Acetaminophen (Tylenol) 650 mg Q4H PRN PO pain , headaches Last administered on 06/20/17 06:57; Start 06/17/17 at 23:00 Atorvastatin Calcium (Lipitor) 80 mg HS PO Last administered on 06/19/17 22:54 ; Start 06/18/17 at 21:00 Lisinopril (Prinivil) 2.5 mg DAILY PO ; Start 06/19/17 at 09:00 Miscellaneous (Pill Splitter) 1 ea UNSCH PRN OTHER SEE LABEL COMMENTS; Start at 11:45 IV Flush (NS Flush) 2 ml BID IV FLUSH Last administered on 06/19/17 23:00; Start 06/18/17 at 21:00 IV Flush (NS Flush) 2 ml UNSCH PRN IV FLUSH FLUSH AFTER USING IV ACCESS; Start 06/18/17 at 17:15 Insulin Aspart (NovoLOG SUPPLEMENTAL SCALE) 1 ACHS SQ ; Start 06/18/17 at 21:00 Dextrose (D50w (Vial) Inj) 50 ml UNSCH PRN IV PUSH HYPOGLYCEMIA-SEE COMMENTS; Start 06/18/17 at 17:15 Glucagon (Glucagon Inj) 1 mg UNSCH PRN OTHER HYPOGLYCEMIA-SEE COMMENTS; Start 06/18/17 at 17:15 Iohexol (Omnipaque 350 Inj) 75 ml STK-MED ONCE IVCONTRAST Last administered on 06/18/17 20:07; Start 06/18/17 at 20:07; Stop 06/18/17 at 20:08; Status DC A/P Assessment and Plan A/P Occipital infarction - Head CT: medial right occipital lobe with area of decreased density in a pattern c/w nonhemorrhagic subacute infarct. - Brain MRI: acute or subacute infarct involving the medial right occipital lobe without mass effect or hemorrhage - Brain MRA: diminished flow distal right posterior cerebral artery distribution probably related to an occlusion or partial occlusion correlating with brain MRI finding of infarct in medial occipital lobe. - Carotid ultrasound: mild plaque in bilateral carotid arteries, not hemodynamically significant. -CTA neck with no significant stenosis -CTA head with no acute intracranial vascular abnormality -CECI with no thrombus - HgA1C 5.9 - continue Aspirin 325 mg daily and high-intensity statin -hypercoagulable state panel pending -d/w neurology ( ) and cleared for discharge with outpatient f/u with . Abnormal EKG - Troponin I 0.48 on initial presentation - cardiology consult appreciated; plan for f/u as outpatient. -echo with EF 55% Tobacco Abuse - strongly counseled regarding cessation DVT prophylaxis - Lovenox 40 mg subq daily Discharge Planning dc home today. see med list. f/w with pcp,neurology and cardiology. no driving for now till f/u with pcp. d/w the patient and her family at the bedside. d/w . Loli Hays MD Jun 20, 2017 12:30
--- NOTE | 2017-06-20 12:31 | HHI.DS ---
Discharge Summary Admission Date Jun 17, 2017 at 21:27 Discharge Date: Jun 20, 2017 Admitting Diagnosis Occiptal infarct, R w/ hemianopsia; elevated troponin I (1) Occipital infarction ICD Code: I63.9 - Cerebral infarction, unspecified Diagnosis: Principal Status: Acute (2) Abnormal EKG ICD Code: R94.31 - Abnormal electrocardiogram [ECG] [EKG] Diagnosis: Principal Status: Acute (3) Elevated troponin I level ICD Code: R74.8 - Abnormal levels of other serum enzymes Diagnosis: Principal Status: Acute Procedures CECI Brief History - From Admission Written by Nena Martinez, acting as scribe for Dr. Sigala on 06/18/17 at 02:23. Patient reports nausea, vomiting, and diarrhea 06/15/17 - came to ED and was d/c' d home with anti-emetics. She had a headache with blurry vision on with loss of left peripheral vision and right hemianopsia. She went to the eye doctor and he told her to go to ED after evaluation. Denies diaphoresis, shortness of breath, chest pain, or palpitations. Last couple of weeks: denies nausea, vomiting, dizziness, or syncope. The patient states that she is normally in very good health and does not take any medications routinely. . CBC/BMP: 06/17/17202406/17/172024 Significant Findings Laboratory Tests Test 06/17/17 20:25 06/18/17 02:59 06/18/17 10:06 06/19/17 09:26 Monocytes (%) (Auto) 8.9 % (0.0-8.0) Estimat Glomerular Filtration Rate 71 ML/MIN (>89) Troponin I 0.48 NG/ML (0.02-0.05) 0.36 NG/ML (0.02-0.05) 0.24 NG/ML (0.02-0.05) Cholesterol Level 237 MG/DL (120-200) LDL Cholesterol 164 MG/DL (0-99) Imaging Last Impressions Neck CTA 06/18/17 0000 Signed Impressions: Service Date/Time: May 19:49 - CONCLUSION: No significant atherosclerotic change or stenosis is present within the neck arterial vasculature. Charlie Kang MD Head CTA 06/18/17 Signed Impressions: Service Date/Time: May 19:49 - CONCLUSION: No acute intracranial vascular abnormality is identified. The posterior cerebral artery blood flow appears symmetric on the current study. Charlie Kang MD Head CT 06/17/171940 Signed Impressions: Service Date/Time: Saturday, June 17, 2017 20:22 - CONCLUSION: There is an area of decreased density involving the medial right occipital lobe in a pattern characteristic for a nonhemorrhagic subacute infarct. Henri Phan MD Head Magnetic Resonance Angiography 06/17/17 Signed Impressions: Service Date/Time: Saturday, June 17, 2017 22:10 - CONCLUSION: 1. Diminished flow in the distal right posterior cerebral artery distribution probably related to an occlusion or partial occlusion which correlates with MR findings of infarct in the medial occipital lobe. No other vascular occlusions identified. Michael Campbell MD Carotid Artery Ultrasound 06/17/17 Signed Impressions: Service Date/Time: Saturday, June 17, 2017 22:27 - CONCLUSION: 1. Mild plaque in the carotid arteries bilaterally. No hemodynamically significant stenosis. Vertebral artery flow antegrade bilaterally. Michael Campbell MD Brain MRI 06/17/17 Signed Impressions: Service Date/Time: Saturday, June 17, 2017 22:10 - CONCLUSION: 1. Acute or subacute infarct involving the medial right occipital lobe without mass effect or hemorrhage. Michael Campbell MD PE at Discharge GENERAL: This is a well-nourished, well-developed patient, in no apparent distress. CARDIOVASCULAR: Regular rate and regular rhythm without murmurs, gallops, or rubs. RESPIRATORY: Clear to auscultation. Breath sounds equal bilaterally. No wheezes , rales, or rhonchi. GASTROINTESTINAL: Abdomen soft, non-tender, nondistended. Normal, active bowel sounds MUSCULOSKELETAL: Extremities without clubbing, cyanosis, or edema. NEURO: Alert & Oriented x4 to person, place, time, situation. Moves all ext x4 Hospital Course Occipital infarction - Head CT: medial right occipital lobe with area of decreased density in a pattern c/w nonhemorrhagic subacute infarct. - Brain MRI: acute or subacute infarct involving the medial right occipital lobe without mass effect or hemorrhage - Brain MRA: diminished flow distal right posterior cerebral artery distribution probably related to an occlusion or partial occlusion correlating with brain MRI finding of infarct in medial occipital lobe. - Carotid ultrasound: mild plaque in bilateral carotid arteries, not hemodynamically significant. -CTA neck with no significant stenosis -CTA head with no acute intracranial vascular abnormality -CECI with no thrombus - HgA1C 5.9 - continue Aspirin 325 mg daily and high-intensity statin -hypercoagulable state panel pending -d/w neurology ( ) and cleared for discharge with outpatient f/u with . Abnormal EKG - Troponin I 0.48 on initial presentation - cardiology consult appreciated; plan for f/u as outpatient. -echo with EF 55% Tobacco Abuse - strongly counseled regarding cessation DVT prophylaxis - Lovenox 40 mg subq daily Pt Condition on Discharge: Stable Discharge Disposition: Discharge Home Discharge Time: <= 30 minutes Discharge Instructions DIET: Follow Instructions for: Heart Healthy Diet Activities you can perform: Regular-No Restrictions Activities to Avoid: Driving Follow up Referrals: Cardiology Neurology PCP Follow-up New Medications: Aspirin DR (Aspirin EC) 325 Mg Tabdr 325 MG PO DAILY for cva for 30 Days, TAB 0 Refills Atorvastatin (Atorvastatin) 80 Mg Tab 80 MG PO HS for dyslipidemia for 30 Days, TAB 0 Refills Loli Hays MD Jun 20, 2017 12:30
[2017-06-20 16:00] VITALS: BP 140/60; PULSE 61; RESP 18; TEMP 97.5; O2SAT 96
[2017-06-22 07:50] LABS: THROMBIN TIME FOR LA ND sec (13-19)
[2017-07-08] MEDS ORDERED: COMMODE 3-IN-11 MIS (14:11)
[2017-07-08] MEDS ORDERED: WHEEMIS3 (14:11)
[2017-07-13] MEDS ORDERED: DILA100C PO (10:38)
[2017-07-13] MEDS ORDERED: ASPI81CH25 PO (10:38)
[2017-07-13] MEDS ORDERED: ATOR1TAB18 PO (10:38)
== END 2017-06-20 16:44 | disposition home or self-care (01) | DRG 66 ==
LOC: NEPC 17:19 → NEDA 21:27 → N05B 23:07
PROVIDERS: ADMIT Internal Medicine; ATTEND Internal Medicine
DX: I63.531 Cerebral infarction due to unspecified occlusion or stenosis of right posterior cerebral artery (principal); H53.47 Heteronymous bilateral field defects; E78.5 Hyperlipidemia, unspecified; F17.210 Nicotine dependence, cigarettes, uncomplicated
CPT/HCPCS: 70450; 70496; 70498; 70544; 70551; 80048; 80061; 81240; 81241; 82550; 82948; 83036; 84484; 85025; 85303; 85306; 85610; 85613; 85730; 86147; 93005; 93306; 93312; 93320; 93325; 93880; Q9967

== ENCOUNTER 2017-06-22 16:24 | Inpatient (IN) | payer BC ==
[~2017-06-22] VITALS: Ht 170.2 cm; Wt 65.0 kg
[~2017-06-22 16:24] MED LIST: ASPI325T33 PO; ATOR1TAB18 PO
[2017-06-22 16:32] VITALS: BP 158/79; PULSE 100; RESP 22; O2SAT 98
[2017-06-22] MEDS ORDERED: SODIUM CHLORIDE 0.9% FLUSH 10 ML FLUSH IVF PRN (16:45)
--- NOTE | 2017-06-22 17:04 | RADRPT ---
EXAM DATE/TIME: 06/22/2017 16:38 [facility] COMPARISON: MRI BRAIN W/O CONTRAST, June 17, 2017, 22:10. CT BRAIN W/O CONTRAST, June 17, 2017, 20:22. INDICATIONS : History of previous stroke,found on floor today. RADIATION DOSE: 56.35 CTDIvol (mGy) MEDICAL HISTORY : Cerebrovascular disease. SURGICAL HISTORY : Tubal ligation. ENCOUNTER: Initial ACUITY: 1 day PAIN SCALE: 0/10 LOCATION: cranial TECHNIQUE: Multiple contiguous axial images were obtained of the head. Using automated exposure control and adj ustment of the mA and/or kV according to patient size, radiation dose was kept as low as reasonably a chievable to obtain optimal diagnostic quality images. DICOM format image data is available electro nically for review and comparison. FINDINGS: There is hypodensity at the level of the central sulcus on the left with slight increase in density a t the hsieh-white junction which may reflect laminar necrosis or localized subarachnoid hemorrhage. Oc cipital infarct is again identified MRI is recommended for further evaluation if clinically indicated . CONCLUSION: 1. Findings characteristic of acute infarct in the left frontal parietal region with possible small a chyna of hemorrhage. Repeat MRI is recommended Ramírez Warner MD on June 22, 2017 at 17:00 Board Certified Radiologist. This report was verified electronically.
--- NOTE | 2017-06-22 17:10 | RADRPT ---
EXAM DATE/TIME: 06/22/2017 16:52 [facility] COMPARISON: No previous studies available for comparison. INDICATIONS : Stroke alert. MEDICAL HISTORY : None. SURGICAL HISTORY : None. ENCOUNTER: Initial ACUITY: 1 day PAIN SCORE: Non-responsive. LOCATION: Bilateral chest FINDINGS: A single view of the chest demonstrates the lungs to be symmetrically aerated without evidence of mas s, infiltrate or effusion. The cardiomediastinal contours are unremarkable. Osseous structures are intact. CONCLUSION: No acute disease. Ronal Hong MD FACR on June 22, 2017 at 17:08 Board Certified Radiologist. This report was verified electronically.
[2017-06-22 17:12] LABS: AUTOMATED NEUTROPHIL # 13.7 TH/MM3 (1.8-7.7); BASOPHIL % 0.2 % (0.0-2.0); EOSINOPHIL % 0.1 % (0.0-4.0); HEMATOCRIT 45.7 % (35.0-46.0); HEMO FLAGS DIFF FINAL; LYMPH % 6.7 % (9.0-44.0); MEAN CELL VOLUME 91.1 FL (80.0-100.0); MEAN CORPUSCULAR HEMOGLOBIN 29.2 PG (27.0-34.0); MONO % 4.7 % (0.0-8.0); NEUT % 88.3 % (16.0-70.0); PLATELET COUNT 255 TH/MM3 (150-450); RED BLOOD COUNT 5.02 MIL/MM3 (4.00-5.30); RED CELL DISTRIBUTION WIDTH 14.4 % (11.6-17.2); WHITE BLOOD COUNT 15.6 TH/MM3 (4.0-11.0)
[2017-06-22 17:26] LABS: APTT (PATIENT) 24.7 SEC (24.3-30.1); PROTHROMBIN TIME - PATIENT 10.8 SEC (9.8-11.6)
[2017-06-22 17:32] LABS: ALT (GPT) 38 U/L (10-53)
[2017-06-22 17:35] LABS: ANION GAP 8 MEQ/L (5-15); AST (GOT) 39 U/L (15-37); BICARBONATE 23.8 MEQ/L (21.0-32.0); BLOOD UREA NITROGEN 12 MG/DL (7-18); CHLORIDE 109 MEQ/L (98-107); GLOMERULAR FILTRATION RATE 76 ML/MIN (>89); POTASSIUM 4.2 MEQ/L (3.5-5.1); SODIUM (NA) 141 MEQ/L (136-145)
[2017-06-22 17:36] LABS: ALKALINE PHOSPHATASE 98 U/L (45-117); CREATINE KINASE 142 U/L (26-192); TOTAL BILIRUBIN ADULT 0.4 MG/DL (0.2-1.0)
--- NOTE | 2017-06-22 18:03 | PD ---
HPI Chief Complaint: Stroke Alert Time Seen by Provider: 16:28 Travel History International Travel<30 days: No Contact w/Intl Traveler<30days: No Traveled to known affect area: No History of Present Illness HPI The patient is a 57-year-old female who presents to the emergency department via EMS as a stroke. The patient was recently hospitalized for an occipital infarct on the right which left her with left bilateral hemianopsia according to the . The patient was discharged home on Thursday, on aspirin, and feeling well. The patient was last seen normal this morning at 8 AM when the left work. Apparently a family member called at 11 AM and there was no answer, the called at 1 PM and there was no answer. When family members found the patient, she was unable to move her right side of her body and was nonverbal. Therefore, EMS was called. Upon arrival the patient is a phasic, has difficulty using her right upper extremity, and is unable to provide any further information. PFSH Past Medical History Cancer: No Cardiovascular Problems: No Diminished Hearing: No Endocrine: No Genitourinary: No Immune Disorder: No Musculoskeletal: No Neurologic: Yes (current) Psychiatric: No Reproductive: No Respiratory: No Migraines: Yes Tetanus Vaccination: Unknown : 2 Para: 2 Tubal Ligation: Yes Past Surgical History Gynecologic Surgery: Yes (tubal) Other Surgery: Yes Social History Alcohol Use: Yes Tobacco Use: Yes Substance Use: No Allergies-Medications (Allergen,Severity, Reaction): Coded Allergies: Penicillins (Verified Allergy, Unknown, 06/15/17) Sulfa (Sulfonamide Antibiotics) (Verified Allergy, Unknown, 06/15/17) Reported Meds & Prescriptions Reported Meds & Active Scripts Active Aspirin EC (Aspirin) 325 Mg Tabdr 325 Mg PO DAILY 30 Days Atorvastatin (Atorvastatin Calcium) 80 Mg Tab 80 Mg PO HS 30 Days Review of Systems ROS Limitations: Clinical Condition Except as stated in HPI: all other systems reviewed are Neg Musculoskeletal: Positive: Weakness Neurologic: Positive: Focal Abnormalities, Slurred Speech Physical Exam Narrative GENERAL: Awake, eyes open, nonverbal 57-year-old female who appears her stated age and is in no acute respiratory distress. SKIN: Focused skin assessment warm/dry. HEAD: Atraumatic. Normocephalic. EYES: Pupils equal and round. Pupils are 4 mm bilateral and reactive. EOMs appear intact. ENT: No nasal bleeding or discharge. Mucous membranes pink and moist. NECK: Trachea midline. No JVD. CARDIOVASCULAR: Regular rate and rhythm. No murmur appreciated. RESPIRATORY: No accessory muscle use. Clear to auscultation. Breath sounds equal bilaterally. GASTROINTESTINAL: Abdomen soft, non-tender, nondistended. No rebound tenderness. MUSCULOSKELETAL: No obvious deformities. No clubbing. No cyanosis. No edema. NEUROLOGICAL: Awake, eyes open, nonverbal. Extraocular muscles appear intact. Asymmetric smile, decreased nasolabial fold on the right. Timing appears to deviate slightly to the last period patient is unable to move her right upper extremity does not withdraw to pain in the right upper extremity. Limited range of motion of the right lower extremity however she does withdrawal to pain for the right lower extremity. No drift of the left arm or left leg. Sensation is appears intact as patient does withdraw to pain on the left side. PSYCHIATRIC: Appears anxious. Data Data Last Documented VS Vital Signs Date Time Temp Pulse Resp B/P (MAP) Pulse Ox O2 Delivery O2 Flow Rate FiO2 06/22/17 16:32 100 22 158/79 (105) 98 Orders Orders Electrocardiogram (06/22/17 16:41) Prothrombin Time / Inr (Pt) (06/22/17 16:41) Act Partial Throm Time (Ptt) (06/22/17 16:41) Complete Blood Count With Diff (06/22/17 16:41) Comprehensive Metabolic Panel (06/22/17 16:41) Creatine Kinase (Cpk) (06/22/17 16:41) Troponin I (06/22/17 16:41) Ct Brain W/O Iv Contrast(Rout) (06/22/17 16:41) Chest, Single Ap (06/22/17 16:41) Ecg Monitoring (06/22/17 16:41) Iv Access Insert/Monitor (06/22/17 16:41) Oximetry (06/22/17 16:41) Sodium Chloride 0.9% Flush (Ns Flush) (06/22/17 16:45) Labs Laboratory Tests Test 06/22/17 16:54 White Blood Count 15.6 TH/MM3 Red Blood Count 5.02 MIL/MM3 Hemoglobin 14.6 GM/DL Hematocrit 45.7 % Mean Corpuscular Volume 91.1 FL Mean Corpuscular Hemoglobin 29.2 PG Mean Corpuscular Hemoglobin Concent 32.0 % Red Cell Distribution Width 14.4 % Platelet Count 255 TH/MM3 Mean Platelet Volume 10.0 FL Neutrophils (%) (Auto) 88.3 % Lymphocytes (%) (Auto) 6.7 % Monocytes (%) (Auto) 4.7 % Eosinophils (%) (Auto) 0.1 % Basophils (%) (Auto) 0.2 % Neutrophils # (Auto) 13.7 TH/MM3 Lymphocytes # (Auto) 1.0 TH/MM3 Monocytes # (Auto) 0.7 TH/MM3 Eosinophils # (Auto) 0.0 TH/MM3 Basophils # (Auto) 0.0 TH/MM3 CBC Comment DIFF FINAL Differential Comment Prothrombin Time 10.8 SEC Prothromb Time International Ratio 1.0 RATIO Activated Partial Thromboplast Time 24.7 SEC Blood Urea Nitrogen 12 MG/DL Creatinine 0.78 MG/DL Random Glucose 91 MG/DL Total Protein 7.3 GM/DL Albumin 3.6 GM/DL Calcium Level 9.0 MG/DL Alkaline Phosphatase 98 U/L Aspartate Amino Transf (AST/SGOT) 39 U/L Alanine Aminotransferase (ALT/SGPT) 38 U/L Total Bilirubin 0.4 MG/DL Sodium Level 141 MEQ/L Potassium Level 4.2 MEQ/L Chloride Level 109 MEQ/L Carbon Dioxide Level 23.8 MEQ/L Anion Gap 8 MEQ/L Estimat Glomerular Filtration Rate 76 ML/MIN Total Creatine Kinase 142 U/L Troponin I 0.09 NG/ML MDM Medical Decision Making Medical Screen Exam Complete: Yes Emergency Medical Condition: Yes Medical Record Reviewed: Yes Interpretation(s) EKG reveals sinus tachycardia with a heart rate of 105. Left anterior fascicular block. Laboratory Tests Test 06/22/17 16:54 White Blood Count 15.6 TH/MM3 Red Blood Count 5.02 MIL/MM3 Hemoglobin 14.6 GM/DL Hematocrit 45.7 % Mean Corpuscular Volume 91.1 FL Mean Corpuscular Hemoglobin 29.2 PG Mean Corpuscular Hemoglobin Concent 32.0 % Red Cell Distribution Width 14.4 % Platelet Count 255 TH/MM3 Mean Platelet Volume 10.0 FL Neutrophils (%) (Auto) 88.3 % Lymphocytes (%) (Auto) 6.7 % Monocytes (%) (Auto) 4.7 % Eosinophils (%) (Auto) 0.1 % Basophils (%) (Auto) 0.2 % Neutrophils # (Auto) 13.7 TH/MM3 Lymphocytes # (Auto) 1.0 TH/MM3 Monocytes # (Auto) 0.7 TH/MM3 Eosinophils # (Auto) 0.0 TH/MM3 Basophils # (Auto) 0.0 TH/MM3 CBC Comment DIFF FINAL Differential Comment Prothrombin Time 10.8 SEC Prothromb Time International Ratio 1.0 RATIO Activated Partial Thromboplast Time 24.7 SEC Blood Urea Nitrogen 12 MG/DL Creatinine 0.78 MG/DL Random Glucose 91 MG/DL Total Protein 7.3 GM/DL Albumin 3.6 GM/DL Calcium Level 9.0 MG/DL Alkaline Phosphatase 98 U/L Aspartate Amino Transf (AST/SGOT) 39 U/L Alanine Aminotransferase (ALT/SGPT) 38 U/L Total Bilirubin 0.4 MG/DL Sodium Level 141 MEQ/L Potassium Level 4.2 MEQ/L Chloride Level 109 MEQ/L Carbon Dioxide Level 23.8 MEQ/L Anion Gap 8 MEQ/L Estimat Glomerular Filtration Rate 76 ML/MIN Total Creatine Kinase 142 U/L Troponin I 0.09 NG/ML CT of the head reveals findings characteristic of acute infarct in the left frontoparietal region with possible small area of hemorrhage. Repeat MRI is recommended. Chest x-ray reveals no acute disease Differential Diagnosis Differential diagnoses includes CVA, TIA, seizure, hypoglycemia, hypernatremia, multiple sclerosis. Narrative Course IV was established, labs are drawn and sent, and the patient was placed on cardiac telemetry monitoring and continuous pulse ox imaging monitoring. EKG was ordered and interpreted. Stat CT of the brain was obtained which revealed a left parietal infarct with possible small hemorrhage. I discussed the patient with the neurosurgeon, Dr. Lane, who reviewed the CT reveals no evidence of hemorrhage. After discussion it was agreed the patient could have aspirin. A call was placed to Dr. Kanu Aguilar who recently evaluated the patient in the emergency department, I discussed with the covering physician, Dr. Everett, who agrees with aspirin and also agrees with no heparin and she may have hemorrhagic conversion. The patient will be admitted to medical service, will benefit from physical therapy, occupational therapy, neurology input, and will eventually need care home facility. The patient was given aspirin suppository until she can have a formal speech/swallow evaluation. I discussed the findings with the patient and her at bedside. Physician Communication Physician Communication I discussed the patient with Dr. Escobedo who agrees with admission. Diagnosis Primary Impression: Dysarthria due to cerebrovascular accident (CVA) Admitting Information Admitting Physician Requests: Admit Condition: Stable Po Gamboa MD Jun 22, 2017 18:03
[2017-06-22] MEDS ORDERED: ASPIRIN 300 MG SUPP RECTAL ONE (18:30)
[2017-06-22] MEDS ORDERED: ACETAMINOPHEN 325 MG TAB PO PRN ×2 (18:45)
[2017-06-22] MEDS ORDERED: DEXTROSE 50% IN WATER 50 ML VIAL(D50) IV PUSH PRN (18:45)
[2017-06-22] MEDS ORDERED: oxyCODONE/ACETAMINOPHEN 10 MG/325 MG TAB PO PRN (18:45)
[2017-06-22] MEDS ORDERED: LACTULOSE SYRUP 20 GM/30 ML CUP PO PRN (18:45)
[2017-06-22] MEDS ORDERED: MAGNESIUM HYDROXIDE SUSP 30 ML CUP PO PRN (18:45)
[2017-06-22] MEDS ORDERED: GLUCAGON 1 MG/ML VIAL OTHER PRN ×2 (18:45)
[2017-06-22] MEDS ORDERED: DEXTROSE 50% IN WATER 50 ML VIAL(D50) IV PRN (18:45)
[2017-06-22] MEDS ORDERED: MORPHINE SULFATE 4 MG/ML INJ IV PRN ×2 (18:45)
[2017-06-22] MEDS ORDERED: PROCHLORPERAZINE 25 MG SUPP RECTAL PRN (18:45)
[2017-06-22] MEDS ORDERED: SENNOSIDES 8.6 MG TAB PO PRN (18:45)
[2017-06-22] MEDS ORDERED: NALOXONE HCL 0.4 MG/ML AMP IV PRN (18:45)
[2017-06-22] MEDS ORDERED: oxyCODONE/ACETAMINOPHEN 5 MG/325 MG TAB PO PRN (18:45)
[2017-06-22] MEDS ORDERED: BISACODYL 10 MG SUPP RECTAL PRN (18:45)
[2017-06-22] MEDS ORDERED: SODIUM CHLORIDE 0.9% FLUSH 10 ML FLUSH IV FLUSH PRN (18:45)
[2017-06-22] MEDS ORDERED: SODIUM CHLORIDE 0.9% FLUSH 5 ML FLUSH IV FLUSH PRN (18:45)
[2017-06-22] MEDS ORDERED: ONDANSETRON HCL 4 MG/2 ML VIAL IVP PRN (18:45)
[2017-06-22 19:00] VITALS: BP 122/59; PULSE 70; RESP 18; O2SAT 100; O2SAT 98
[2017-06-22 20:00] VITALS: O2SAT 100
[2017-06-22 20:15] VITALS: BP 143/71; PULSE 70; RESP 20; TEMP 98.8; O2SAT 99
[2017-06-22 20:30] VITALS: BP 128/66; PULSE 74; RESP 18; O2SAT 98
[2017-06-22] MEDS ORDERED: INSULIN ASPART SUPPLEMENTAL SCALE SQ SCH (21:00)
[2017-06-22] MEDS: SODIUM CHLORIDE 0.9% FLUSH 5 ML FLUSH IV FLUSH SCH (21:00)
[2017-06-22] MEDS: INSULIN ASPART SUPPLEMENTAL SCALE SQ SCH (21:00)
[2017-06-22] MEDS ORDERED: SODIUM CHLORIDE 0.9% FLUSH 10 ML FLUSH IV FLUSH SCH (21:00)
--- NOTE | 2017-06-22 22:48 | HHI.HP ---
[facility] Unknown Admission Diagnosis acute CVA with dysarthria Diagnoses: Chief Complaint: right sided hemiparesis, non verbal Travel History International Travel<30 Days: No Contact w/Intl Traveler <30 Da: No Traveled to Known Affected Are: No History of Present Illness 57 y/o female with a history of a recent CVA 06/17/2017 and chronic headaches was brought to the ED with right hemiparesis and unable to speak. She was discharged home on Thursday and was given aspirin and Lipitor. Per the patient' s she was last seen normal at 8am this morning when he left for work, he states several people tried to call her but she did not answer, when he returned from work he found her on the floor, not moving and non verbal. He states since she was discharged she was feeling fine, no complaints at home, she was walking around and seemed normal. Patient is non verbal, so ROS can not be completed. states she was taking her prescriptions as prescribed. Multiple family members are at bedside and very concerned about the patient's outcome. They are upset that she was only discharged on Aspirin and not told who and when to follow up outpatient with. Review of Systems ROS Limitations: Clinical Condition (non verbal), Speech Impaired Past Family Social History Past Medical History Chronic headaches HLD CVA 05/2017 Past Surgical History Tubal ligation Reported Medications Reported Meds & Active Scripts Active Aspirin EC (Aspirin) 325 Mg Tabdr 325 Mg PO DAILY 30 Days Atorvastatin (Atorvastatin Calcium) 80 Mg Tab 80 Mg PO HS 30 Days Allergies: Coded Allergies: Penicillins (Verified Allergy, Unknown, 06/15/17) Sulfa (Sulfonamide Antibiotics) (Verified Allergy, Unknown, 06/15/17) Active Ordered Medications Current Medications Medications (Trade) Dose Ordered Sig/Doreen Route Start Time Stop Time Status Last Admin (NS Flush) 2 ml BID IV FLUSH 06/22/17 21:00 (NS Flush) 2 ml UNSCH PRN IV FLUSH 06/22/17 18:45 (Lipitor) 80 mg HS PO 06/22/17 21:00 (NovoLOG SUPPLEMENTAL SCALE) 1 ACHS SQ 8/28/17 21:00 (D50w (Vial) Inj) 50 ml UNSCH PRN IV PUSH 06/22/17 18:45 (Glucagon Inj) 1 mg UNSCH PRN OTHER 06/22/17 18:45 (Tylenol) 650 mg Q4H PRN PO 06/22/17 18:45 (Zofran Inj) 4 mg Q6H PRN IVP 06/22/17 18:45 (Compazine Supp) 25 mg Q12H PRN RECTAL 06/22/17 18:45 (Tylenol) 650 mg Q6H PRN PO 06/22/17 18:45 (Percocet 5-325 Mg) 1 tab Q6H PRN PO 06/22/17 18:45 (Percocet 10-325 Mg) 1 tab Q6H PRN PO 06/22/17 18:45 (Morphine Inj) 2 mg Q3H PRN IV 06/22/17 18:45 (Morphine Inj) 4 mg Q3H PRN IV 06/22/17 18:45 (Narcan Inj) 0.4 mg UNSCH PRN IV 06/22/17 18:45 (Pari-Colace) 1 tab BID PO 06/22/17 21:00 (Milk Of Magnesia Liq) 30 ml Q12H PRN PO 06/22/17 18:45 (Senokot) 17.2 mg Q12H PRN PO 06/22/17 18:45 (Dulcolax Supp) 10 mg DAILY PRN RECTAL 06/22/17 18:45 (Lactulose Liq) 30 ml DAILY PRN PO 06/22/17 18:45 Family History Mother: CVA, hypertension Father: Still living and well, 90 y/o Social History Tobacco: smokes 1/2 PPD Alcohol: drinks wine socially Illicit Drugs: Denies Physical Exam Vital Signs Vital Signs Date Time Temp Pulse Resp B/P (MAP) Pulse Ox O2 Delivery O2 Flow Rate FiO2 06/22/17 21:30 06/22/17 20:30 74 18 128/66 (86) 98 Room Air 06/22/17 20:00 100 Nasal Cannula 2.00 06/22/17 19:00 70 18 122/59 (80) 100 Room Air 06/22/17 19:00 18 98 Room Air 06/22/17 16:32 100 22 158/79 (044) 98 Physical Exam GENERAL: This is a well-nourished, non verbal patient. SKIN: No rashes, ecchymoses or lesions. Cool and dry. HEAD: Atraumatic. Normocephalic. EYES: Pupils equal round and slight reaction. ENT: Nose without bleeding, purulent drainage or septal hematoma. Airway patent. NECK: Trachea midline. No JVD or lymphadenopathy. Supple, nontender, no meningeal signs. CARDIOVASCULAR: Regular rate and rhythm without murmurs, gallops, or rubs. RESPIRATORY: Clear to auscultation. Breath sounds equal bilaterally. No wheezes , rales, or rhonchi. GASTROINTESTINAL: Abdomen soft, non-tender, nondistended. MUSCULOSKELETAL: Extremities without clubbing, cyanosis, or edema. No joint tenderness, effusion, or edema noted. NEUROLOGICAL: Awake and non verbal. Only following slight commands with left side. Unable to smile. 3 out of 5 muscle strength in LUE and LLE. RUE and RLE flaccid with drift. Slight spontaneous movement with right toes. Non verbal. Laboratory Laboratory Tests Test 06/22/17 16:54 White Blood Count 15.6 Red Blood Count 5.02 Hemoglobin 14.6 Hematocrit 45.7 Mean Corpuscular Volume 91.1 Mean Corpuscular Hemoglobin 29.2 Mean Corpuscular Hemoglobin Concent 32.0 Red Cell Distribution Width 14.4 Platelet Count 255 Mean Platelet Volume 10.0 Neutrophils (%) (Auto) 88.3 Lymphocytes (%) (Auto) 6.7 Monocytes (%) (Auto) 4.7 Eosinophils (%) (Auto) 0.1 Basophils (%) (Auto) 0.2 Neutrophils # (Auto) 13.7 Lymphocytes # (Auto) 1.0 Monocytes # (Auto) 0.7 Eosinophils # (Auto) 0.0 Basophils # (Auto) 0.0 CBC Comment DIFF FINAL Differential Comment Prothrombin Time 10.8 Prothromb Time International Ratio 1.0 Activated Partial Thromboplast Time 24.7 Blood Urea Nitrogen 12 Creatinine 0.78 Random Glucose 91 Total Protein 7.3 Albumin 3.6 Calcium Level 9.0 Alkaline Phosphatase 98 Aspartate Amino Transf (AST/SGOT) 39 Alanine Aminotransferase (ALT/SGPT) 38 Total Bilirubin 0.4 Sodium Level 141 Potassium Level 4.2 Chloride Level 109 Carbon Dioxide Level 23.8 Anion Gap 8 Estimat Glomerular Filtration Rate 76 Total Creatine Kinase 142 Troponin I 0.09 Result Diagram: 06/22/17165306/22/171653 Imaging Head CT shows findings of acute infarct in the left frontal parietal region with possible small area of hemorrhage. Caprini VTE Risk Assessment Caprini VTE Risk Assessment: Mod/High Risk (score >= 2) VTE Pharm Contraindication: Hemorrhage Caprini Risk Assessment Model Point Value = 1 Point Value = 2 Point Value = 3 Point Value = 5 Age 41-60 Minor surgery BMI > 25 kg/m2 Swollen legs Varicose veins or History of unexplained or recurrent spontaneous Oral contraceptives or hormone replacement Sepsis (< 1 month) Serious lung disease, including pneumonia (< 1 month) Abnormal pulmonary function Acute myocardial infarction Congestive heart failure (< 1 month) History of inflammatory bowel disease Medical patient at bed rest Age 61-74 Arthroscopic surgery Major open surgery (> 45 min) Laparoscopic surgery (> 45 min) Malignancy Confined to bed (> 72 hours) Immobilizing plaster cast Central venous access Age >= 75 History of VTE Family history of VTE Factor V Leiden Prothrombin [id number] Lupus anticoagulant Anticardiolipin antibodies Elevated serum homocysteine Heparin-induced thrombocytopenia Other congenital or acquired thrombophilia Stroke (< 1 month) Elective arthroplasty Hip, pelvis, or leg fracture Acute spinal cord injury (< 1 month) Prophylaxis Regimen Total Risk Factor Score Risk Level Prophylaxis Regimen 0-1 Low Early ambulation 2 Moderate Order ONE of the following: *Sequential Compression Device (SCD) *Heparin 5000 units SQ BID 3-4 Higher Order ONE of the following medications: *Heparin 5000 units SQ TID *Enoxaparin/Lovenox 40 mg SQ daily (WT < 150 kg, CrCl > 30 mL/min) *Enoxaparin/Lovenox 30 mg SQ daily (WT < 150 kg, CrCl > 10-29 mL/min) *Enoxaparin/Lovenox 30 mg SQ BID (WT < 150 kg, CrCl > 30 mL/min) AND/OR *Sequential Compression Device (SCD) 5 or more Highest Order ONE of the following medications: *Heparin 5000 units SQ TID (Preferred with Epidurals) *Enoxaparin/Lovenox 40 mg SQ daily (WT < 150 kg, CrCl > 30 mL/min) *Enoxaparin/Lovenox 30 mg SQ daily (WT < 150 kg, CrCl > 10-29 mL/min) *Enoxaparin/Lovenox 30 mg SQ BID (WT < 150 kg, CrCl > 30 mL/min) AND *Sequential Compression Device (SCD) Assessment and Plan Problem List: (1) CVA (cerebral vascular accident) ICD Code: I63.9 - Cerebral infarction, unspecified (2) HLD (hyperlipidemia) ICD Code: E78.5 - Hyperlipidemia, unspecified (3) Leukocytosis ICD Code: D72.829 - Elevated white blood cell count, unspecified Assessment and Plan 57 y/o female with a history of a recent CVA 06/17/2017 and chronic headaches was brought to the ED with right hemiparesis and unable to speak. She was discharged home on Thursday and was given aspirin and Lipitor. Per the patient' s she was last seen normal at 8am this morning when he left for work, he states several people tried to call her but she did not answer, when he returned from work he found her on the floor, not moving and non verbal. CVA, acute, patient with right hemiparesis Head CT reviewed and shows findings of acute infarct in the left frontal parietal region with possible small area of hemorrhage. -Consult neurology for recommendations, Patients wish to not follow with Dr. Aguilar -ASA given in ED, will hold ASA for now due to possible hemorrhage. -MRI/MRA ordered and pending -PT/OT/ST -Consult rehab -HOB flat HLD, chronic -reorder home medication Lipitor -Lipid panel ordered Leukocytosis, likely reactive, WBC 15.6 -UA ordered -Trend CBC in AM -IVF for hydration DVT prophylaxis: SCDs, hold chemical for now for possible hemorrhage Discussed Condition With Patient, patient's , and RN Physician Certification 2 Midnight Certification Type: Admission for Inpatient Services Order for Inpatient Services The services are ordered in accordance with Medicare regulations or non- Medicare payer requirements, as applicable. In the case of services not specified as inpatient-only, they are appropriately provided as inpatient services in accordance with the 2-midnight benchmark. Estimated LOS (days): 3 days is the estimated time the patient will need to remain in the hospital, assuming treatment plan goals are met and no additional complications. Post-Hospital Plan: Not yet determined Tahira Inman Jun 22, 2017 22:48
[2017-06-23] VITALS (8 sets, daily range): BP systolic 123–173; BP diastolic 69–87; PULSE 65–83; RESP 17–20; TEMP 98.2–99.1; O2SAT 96–100
[2017-06-23 06:13] LABS: BLOOD, URINE NEG (NEG); COMMENT (UR) CULT NOT INDICATED; CULTURE IF INDICATED CULT NOT INDICATED; GLUCOSE,URINE NEG (NEG); KETONE, URINE NEG (NEG); MUCUS URINE FEW /lpf (OCC); NITRITE,URINE NEG (NEG); SQUAMOUS EPITHELIAL CELL URINE 1 /hpf (0-5); URINE COLOR YELLOW (YELLW/STRAW)
[2017-06-23 07:28] LABS: CREATINE KINASE 126 U/L (26-192)
--- NOTE | 2017-06-23 08:30 | PD.CONS ---
History of Present Illness Service Neurology Consult Requested By medical Reason for Consult stroke Primary Care Physician Unknown History of Present Illness 57 y/o female readmitted for stroke. dx'd with rt medial occipital infarct . placed on aspirin therapy. levy- negative. cta brain/carotids nml. ldl 164. lupus anticoagulant negative. last night found down by spouse for undetermined amount of time. noted to have difficulty with speech and rt sided weakness. quit tob use last week. Review of Systems ROS Limitations: Clinical Condition (non verbal), Speech Impaired Past Family Social History Past Medical History Chronic headaches HLD stroke 05/2017 Past Surgical History Tubal ligation Reported Medications Reported Meds & Active Scripts Active Aspirin EC (Aspirin) 325 Mg Tabdr 325 Mg PO DAILY 30 Days Atorvastatin (Atorvastatin Calcium) 80 Mg Tab 80 Mg PO HS 30 Days Allergies: Coded Allergies: Penicillins (Verified Allergy, Unknown, 06/15/17) Sulfa (Sulfonamide Antibiotics) (Verified Allergy, Unknown, 06/15/17) Family History M- CVA, hypertension Social History Tobacco: smokes 1/2 PPD-quit last week Alcohol: drinks wine socially Illicit Drugs: Denies Review of Systems All other ROS: ROS reviewed as documented in chart Past Family Social History Allergies: Coded Allergies: Penicillins (Verified Allergy, Unknown, 06/15/17) Sulfa (Sulfonamide Antibiotics) (Verified Allergy, Unknown, 06/15/17) Active Ordered Medications Current Medications Medications (Trade) Dose Ordered Sig/Doreen Route Start Time Stop Time Status Last Admin (NS Flush) 2 ml BID IV FLUSH 06/22/17 21:00 06/22/17 21:00 (NS Flush) 2 ml UNSCH PRN IV FLUSH 06/22/17 18:45 (Lipitor) 80 mg HS PO 06/22/17 21:00 (NovoLOG SUPPLEMENTAL SCALE) 1 ACHS SQ 06/22/17 21:00 (D50w (Vial) Inj) 50 ml UNSCH PRN IV PUSH 06/22/17 18:45 (Glucagon Inj) 1 mg UNSCH PRN OTHER 06/22/17 18:45 (Tylenol) 650 mg Q4H PRN PO 06/22/17 18:45 (Zofran Inj) 4 mg Q6H PRN IVP 06/22/17 18:45 (Compazine Supp) 25 mg Q12H PRN RECTAL 06/22/17 18:45 (Tylenol) 650 mg Q6H PRN PO 06/22/17 18:45 (Percocet 5-325 Mg) 1 tab Q6H PRN PO 06/22/17 18:45 (Percocet 10-325 Mg) 1 tab Q6H PRN PO 06/22/17 18:45 (Morphine Inj) 2 mg Q3H PRN IV 06/22/17 18:45 (Morphine Inj) 4 mg Q3H PRN IV 06/22/17 18:45 (Narcan Inj) 0.4 mg UNSCH PRN IV 06/22/17 18:45 (Pari-Colace) 1 tab BID PO 06/22/17 21:00 (Milk Of Magnesia Liq) 30 ml Q12H PRN PO 06/22/17 18:45 (Senokot) 17.2 mg Q12H PRN PO 06/22/17 18:45 (Dulcolax Supp) 10 mg DAILY PRN RECTAL 06/22/17 18:45 (Lactulose Liq) 30 ml DAILY PRN PO 06/22/17 18:45 Sodium Chloride 1,000 ml @ 84 mls/hr [id number] IV 06/22/17 22:45 Exam I&O / VS Vital Signs Date Time Temp Pulse Resp B/P (MAP) Pulse Ox O2 Delivery O2 Flow Rate FiO2 06/23/17 05:23 98.6 68 20 147/72 (97) 98 06/23/17 01:03 98.2 73 20 148/69 (95) 99 06/22/17 21:30 06/22/17 20:30 74 18 128/66 (86) 98 Room Air 06/22/17 20:15 98.8 70 20 143/71 (95) 99 06/22/17 20:00 100 Nasal Cannula 2.00 06/22/17 19:00 70 18 122/59 (80) 100 Room Air 06/22/17 19:00 18 98 Room Air 06/22/17 16:32 100 22 158/79 (105) 98 Neurologic: Alert Exam Comments alert, global aphasia, mild rt gaze preference, left hh, rt hemiplegia, left > gravity Review/Management Diagnosis/Plan: (1) Acute ischemic left MCA stroke ICD Codes: I63.512 - Cerebral infarction due to unspecified occlusion or stenosis of left middle cerebral artery Status: Acute Plan: appears to have a new left mca region stroke has had an extensive evaluation performed recently suspect aortic arch atheroembolic event levy reviewed recs repeat mri/mra brain statin will consider aspirin/plavix after mri results obtained based on possible ich component to new stroke p.t./s.t. 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
[2017-06-23] MEDS ORDERED: CLOPIDOGREL 75 MG TAB PO SCH (09:00)
[2017-06-23] MEDS ORDERED: ASPIRIN EC 325 MG TABEC PO SCH (09:00)
[2017-06-23] MEDS: DOCUSATE SODIUM 50 MG/SENNA 8.6 MG TAB PO SCH ×2 (09:00→21:00)
[2017-06-23] MEDS ORDERED: HEPARIN SODIUM - SQ 10,000 UNITS/ML VIAL SQ SCH (09:00)
[2017-06-23] MEDS: SODIUM CHLORIDE 0.9% FLUSH 5 ML FLUSH IV FLUSH SCH ×2 (09:00→21:00)
[2017-06-23] MEDS ORDERED: ASPIRIN 300 MG SUPP RECTAL SCH (09:00)
--- NOTE | 2017-06-23 09:21 | HHI.PR ---
Subjective Remarks This is a pleasant 57 y/o Female with recent CVA 06/17/17 with chronic headaches was brought in to ER with Right Hemiparesis and unable to speak she was discharged Home 06/20/17 on Aspirin and Lipitor, she was found her on the floor, not moving and non verbal. He states since she was discharged she was feeling fine, no complaints at home, she was walking around and seemed normal. Patient is non verbal. 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 discussed with patient and her relatives in the room. Objective Vital Signs Date Time Temp Pulse Resp B/P (MAP) Pulse Ox O2 Delivery O2 Flow Rate FiO2 06/23/17 05:23 98.6 68 20 147/72 (97) 98 06/23/17 01:03 98.2 73 20 148/69 (95) 99 06/22/17 21:30 06/22/17 20:30 74 18 128/66 (86) 98 Room Air 06/22/17 20:15 98.8 70 20 143/71 (95) 99 06/22/17 20:00 100 Nasal Cannula 2.00 06/22/17 19:00 70 18 122/59 (80) 100 Room Air 06/22/17 19:00 18 98 Room Air 06/22/17 16:32 100 22 158/79 (105) 98 I/O 06/22/17 06/22/17 06/22/17 06/23/17 06/23/17 06/23/17 07:00 15:00 23:00 07:00 15:00 23:00 # Bowel Movements 3 Result Diagram: 06/22/17 1654 06/22/17 1654 Imaging Last Impressions Head Magnetic Resonance Angiography 06/23/17 0000 Signed Impressions: Service Date/Time: Friday, June 23, 2017 08:24 - CONCLUSION: Normal examination. Flow is now seen within the right posterior cerebral artery peripheral distribution. Keron Wei Jr., MD Brain MRI 06/23/17 0000 Signed Impressions: Service Date/Time: Friday, June 23, 2017 08:24 - CONCLUSION: 1. Large area of infarction involving the left MCA territory with scattered areas of hemorrhage within the infarct bed. 2. Subacute infarct involving the right occipital lobe. 3. The multifocality would raise concern for an embolic event. Keron Wei Jr., MD Head CT 06/22/17 1641 Signed Impressions: Service Date/Time: Thursday, June 22, 2017 16:38 - CONCLUSION: 1. Findings characteristic of acute infarct in the left frontal parietal region with possible small area of hemorrhage. Repeat MRI is recommended Ramírez Warner MD Chest X-Ray 06/22/171640 Signed Impressions: Service Date/Time: Thursday, June 22, 2017 16:52 - CONCLUSION: No acute disease. Ronal Hong MD FACR Procedures None Other Results Laboratory Tests Test 06/22/17 16:54 06/22/17 23:55 06/23/17 06:08 White Blood Count 15.6 TH/MM3 Red Blood Count 5.02 MIL/MM3 Hemoglobin 14.6 GM/DL Hematocrit 45.7 % Mean Corpuscular Volume 91.1 FL Mean Corpuscular Hemoglobin 29.2 PG Mean Corpuscular Hemoglobin Concent 32.0 % Red Cell Distribution Width 14.4 % Platelet Count 255 TH/MM3 Mean Platelet Volume 10.0 FL Neutrophils (%) (Auto) 88.3 % Lymphocytes (%) (Auto) 6.7 % Monocytes (%) (Auto) 4.7 % Eosinophils (%) (Auto) 0.1 % Basophils (%) (Auto) 0.2 % Neutrophils # (Auto) 13.7 TH/MM3 Lymphocytes # (Auto) 1.0 TH/MM3 Monocytes # (Auto) 0.7 TH/MM3 Eosinophils # (Auto) 0.0 TH/MM3 Basophils # (Auto) 0.0 TH/MM3 CBC Comment DIFF FINAL Differential Comment Prothrombin Time 10.8 SEC Prothromb Time International Ratio 1.0 RATIO Activated Partial Thromboplast Time 24.7 SEC Blood Urea Nitrogen 12 MG/DL Creatinine 0.78 MG/DL Random Glucose 91 MG/DL Total Protein 7.3 GM/DL Albumin 3.6 GM/DL Calcium Level 9.0 MG/DL Alkaline Phosphatase 98 U/L Aspartate Amino Transf (AST/SGOT) 39 U/L Alanine Aminotransferase (ALT/SGPT) 38 U/L Total Bilirubin 0.4 MG/DL Sodium Level 141 MEQ/L Potassium Level 4.2 MEQ/L Chloride Level 109 MEQ/L Carbon Dioxide Level 23.8 MEQ/L Anion Gap 8 MEQ/L Estimat Glomerular Filtration Rate 76 ML/MIN Total Creatine Kinase 126 U/L Troponin I 0.09 NG/ML Urine Color YELLOW Urine Turbidity HAZY Urine pH 5.0 Urine Specific [place] 1.015 Urine Protein NEG mg/dL Urine Glucose (UA) NEG mg/dL Urine Ketones NEG mg/dL Urine Occult Blood NEG Urine Nitrite NEG Urine Bilirubin NEG Urine Urobilinogen LESS THAN 2.0 MG/DL Urine Leukocyte Esterase NEG Urine RBC LESS THAN 1 /hpf Urine WBC 1 /hpf Urine Squamous Epithelial Cells 1 /hpf Urine Mucus FEW /lpf Microscopic Urinalysis Comment CULT NOT INDICATED Objective Remarks GENERAL: This is a well-nourished, non verbal patient. SKIN: No rashes, ecchymoses or lesions. Cool and dry. HEAD: Atraumatic. Normocephalic. EYES: Pupils equal round and slight reaction. ENT: Nose without bleeding, purulent drainage or septal hematoma. Airway patent. NECK: Trachea midline. No JVD or lymphadenopathy. Supple, nontender, no meningeal signs. CARDIOVASCULAR: Regular rate and rhythm without murmurs, gallops, or rubs. RESPIRATORY: Clear to auscultation. Breath sounds equal bilaterally. No wheezes , rales, or rhonchi. GASTROINTESTINAL: Abdomen soft, non-tender, nondistended. MUSCULOSKELETAL: Extremities without clubbing, cyanosis, or edema. No joint tenderness, effusion, or edema noted. NEUROLOGICAL: Awake and non verbal. Only following slight commands with left side. Unable to smile. 3 out of 5 muscle strength in LUE and LLE. RUE and RLE flaccid with drift. Slight spontaneous movement with right toes. Non verbal. Medications and IVs Current Medications Medications (Trade) Dose Ordered Sig/Doreen Route Start Time Stop Time Status Last Admin (NS Flush) 2 ml BID IV FLUSH 06/22/17 21:00 06/22/17 21:00 (NS Flush) 2 ml UNSCH PRN IV FLUSH 06/22/17 18:45 (Lipitor) 80 mg HS PO 06/22/17 21:00 (NovoLOG SUPPLEMENTAL SCALE) 1 ACHS SQ 06/22/17 21:00 (D50w (Vial) Inj) 50 ml UNSCH PRN IV PUSH 06/22/17 18:45 (Glucagon Inj) 1 mg UNSCH PRN OTHER 06/22/17 18:45 (Tylenol) 650 mg Q4H PRN PO 06/22/17 18:45 (Zofran Inj) 4 mg Q6H PRN IVP 06/22/17 18:45 (Compazine Supp) 25 mg Q12H PRN RECTAL 06/22/17 18:45 (Tylenol) 650 mg Q6H PRN PO 06/22/17 18:45 (Percocet 5-325 Mg) 1 tab Q6H PRN PO 06/22/17 18:45 (Percocet 10-325 Mg) 1 tab Q6H PRN PO 06/22/17 18:45 (Morphine Inj) 2 mg Q3H PRN IV 06/22/17 18:45 (Morphine Inj) 4 mg Q3H PRN IV 06/22/17 18:45 (Narcan Inj) 0.4 mg UNSCH PRN IV 06/22/17 18:45 (Pari-Colace) 1 tab BID PO 06/22/17 21:00 (Milk Of Magnesia Liq) 30 ml Q12H PRN PO 06/22/17 18:45 (Senokot) 17.2 mg Q12H PRN PO 06/22/17 18:45 (Dulcolax Supp) 10 mg DAILY PRN RECTAL 06/22/17 18:45 (Lactulose Liq) 30 ml DAILY PRN PO 06/22/17 18:45 Sodium Chloride 1,000 ml @ 84 mls/hr [id number] IV 06/22/17 22:45 A/P Assessment and Plan 57 y/o female with a history of a recent CVA 06/17/2017 and chronic headaches was brought to the ED with right hemiparesis and unable to speak. She was discharged home on Thursday and was given aspirin and Lipitor. Per the patient' s she was last seen normal at 8am this morning when he left for work, he states several people tried to call her but she did not answer, when he returned from work he found her on the floor, not moving and non verbal. Left Infarction involving The left MCA territory with scattered areas of Hemorrhage within the infarct bed, Subacute infarct involving the right occipital lobe, The Multifocality call attention about Embolic Event. Neurology specialist Doctor Elton Whitt following, he recommended to hold Aspirin for probable Hemorrhage to continue PT/OT and ST. consult rehab. HLD, chronic -reorder home medication Lipitor -Lipid panel ordered Leukocytosis, likely reactive, WBC 15.6 -UA ordered -Trend CBC in AM -IVF for hydration Severe Tobacco dependence strongly recommended to stop smoking. started on Bronchodilator, Mucolytic and incentive spirometry. Medical Non compliance the patient continue smoking even having this pathology. DVT prophylaxis: SCDs, hold chemical for now for possible hemorrhage Discussed Condition With Patient, her relatives, Nurse and data storage specialist in the room. all questions answered to the best of my abilities. Discharge Planning Once cleared by Neurology specialist. Michael Brooks MD Jun 23, 2017 09:21
--- NOTE | 2017-06-23 10:21 | RADRPT ---
EXAM DATE/TIME: 06/23/2017 08:24 [place] COMPARISON: MRA BRAIN W/O CONTRAST, June 17, 2017, 22:10. INDICATIONS : CVA. MEDICAL HISTORY : Stroke SURGICAL HISTORY : Tubal ligation. ENCOUNTER: Initial ACUITY: 2 day PAIN SCORE: Nonresponsive. LOCATION: head Please note a normal MRA of the brain does not entirely exclude the possibility of a small aneurysm, nor the possibility of distal intracranial vessel disease. TECHNIQUE: 3D time of flight MRA was performed. Source images, multiplanar STS MIP, and 3D volume MIP reconstru ctions were reviewed. FINDINGS: There is excellent visualization of the major intracranial arteries out to the second-order branch ve ssels. There is no evidence for aneurysm, vessel truncation or stenosis, and no evidence for vascula r malformation. CONCLUSION: Normal examination. Flow is now seen within the right posterior cerebral artery peripheral distribut ion. Keron Wei Jr., MD on June 23, 2017 at 9:51 Board Certified Radiologist. This report was verified electronically.
--- NOTE | 2017-06-23 10:28 | RADRPT ---
EXAM DATE/TIME: 06/23/2017 08:24 [facility] COMPARISON: CT BRAIN W/O CONTRAST, June 22, 2017, 16:38. MRA BRAIN W/O CONTRAST, June 23, 2017, 8:24. MRI B RAIN W/O CONTRAST, June 17, 2017, 22:10. INDICATIONS : CVA. MEDICAL HISTORY : Stroke SURGICAL HISTORY : Tubal ligation. ENCOUNTER: Initial ACUITY: 2 day PAIN SCORE: Nonresponsive. LOCATION: head TECHNIQUE: Multiplanar, multisequence MRI of the brain was performed without contrast. FINDINGS: Abnormal signal involving the middle cerebral territory consistent with a hemorrhagic infarction. The re is diffusion weighted abnormality involving these areas of the left frontal lobe, parietal lobe, a nd temporal lobe. It extends down to level of the lateral ventricle including the insular cortex and basal ganglia. Signal changes are seen scattered throughout this area of the lesser hemisphere consis tent with hemorrhage. This is most pronounced within the left frontal lobe. This shows considerable b looming artifact on the gradient echo sequence. There is mild mass effect without midline shift. A jeronimo bacute infarction is again noted involving the right occipital lobe. This is unchanged. CONCLUSION: 1. Large area of infarction involving the left MCA territory with scattered areas of hemorrhage withi n the infarct bed. 2. Subacute infarct involving the right occipital lobe. 3. The multifocality would raise concern for an embolic event. Keron Wei Jr., MD on June 23, 2017 at 10:20 Board Certified Radiologist. This report was verified electronically.
[2017-06-23] MEDS: SODIUM CHLOR 0.9% 1000 ML INJ 1,000 ML IV SCH ×3 (10:40→22:35)
[2017-06-23] MEDS: INSULIN ASPART SUPPLEMENTAL SCALE SQ SCH ×3 (11:00→21:00)
--- NOTE | 2017-06-23 11:13 | MG ---
cc: RUBA JACOB M.D. Lab No: [id number] Date: 06/23/2017 Age: 57 Sex: F Race: __ DATE OF [address] Whitt TECHNIQUE Photic stimulation, awake, drowsy study. INDICATIONS No other history is given. DESCRIPTION OF RECORD The patient has an overall 5 Hz background theta frequency. EKG is grossly artifactual versus possible dysrhythmia. There is a lot of eye movement noted, but overall consistently a mild to moderate slow background. Photic stimulation with a mild driving response. IMPRESSION Abnormal EEG due to a background slowing consistent with what appears to be an encephalopathic process of various etiology. Clinical correlation. MD JAYE Vásquez/RANI /10:59 AM /11:07 AM
--- NOTE | 2017-06-23 12:21 | PD.CONS ---
Consult Service Palliative Care . Consult Requested By Tahira JOHNSTON . Primary Care Physician Unknown Reason for Consultation a. To assist with evaluation and management of symptoms including: weakness, aphasia,anxiety b. To assist medical decision maker(s) with: better understanding of current medical conditions; weighing benefits/burdens of medical treatment options; making medical treatment decisions. . HPI History of Present Illness Ms. Hills is a 57-year-old female with a history of chronic headaches, hyperlipidemia and a recent CVA who presented to [facility] ED on 06/22/17 as a stroke alert. She was recently hospitalized for management of right occipital infarct with with loss of left peripheral vision and right hemianopsia. The patient had been discharged home 2 days earlier on Aspirin and Lipitor. The patient had last been seen at her baseline that morning when her left for work; family members became concerned when the patient was not answering the phone. EMS was called after the patient was found on the floor unable to speak with right sided hemiaplasia. Patient presented to the ED with aphasia; she was having difficulty using her right upper extremity and was unable to provide further information. Pulse: 100, respirations 22, BP 158/ 79, oxygen saturation 98% on room air, temperature 98.8. Chest x-ray revealed no acute disease. White blood count was elevated at 15.6, likely reactive. Urinalysis was within normal limits. A stat CT of the brain revealed a left parietal infarct with possible small hemorrhage. Neurosurgery reviewed the CT and determined there was no evidence of hemorrhage. Patient received aspirin suppository in the ED. Patient was admitted for further evaluation and medical management. She was not started on heparin secondary to the risk of hemorrhagic conversion. 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 Repeat MRA of the head this morning 06/23/2017 was normal. An MRI showed a large area of infarction involving the left MCA territory with scattered areas of hemorrhage within the infarct bed; subacute infarct involving the right occipital lobe; the multifocality would raise concern for an embolic event. EEG consistent with encephalopathic process of various etiology. Patient was placed on her a diet with nectar consistency thickened liquids after swallow evaluation was completed. Palliative Care was consulted to assist with symptom management and to discuss with the patient/family the benefits and burdens of her current illnesses and the options regarding future care. . Function/Cognitive Trajectory Ms. Hills is a 57-year-old female who reports her overall health was good at baseline prior to her recent hospitalizations. Her past medical history is significant for chronic headaches, hyperlipidemia and a recent CVA on 06/17/17. She was rehospitalized 06/22/17 with a second CVA. Patient passed swallow evaluation 06/23/17 and is currently on a pured diet with nectar consistency thickened liquids, speech therapy will continue to follow. Patient would benefit from occupational therapy and physical therapy; she will likely require placement at a long-term facility upon discharge. . Review of Systems ROS Limitations: Clinical Condition (ROS obtained through report and review of notes), Speech Impaired (aphasia) Constitutional: COMPLAINS OF: Generalized weakness Eyes: COMPLAINS OF: Vision loss, Blind spots Neurologic: COMPLAINS OF: Headache (chronic headaches), Speech Problems Past Family Social History Coded Allergies: Penicillins (Verified Allergy, Unknown, 06/15/17) Sulfa (Sulfonamide Antibiotics) (Verified Allergy, Unknown, 06/15/17) Past Medical History Chronic headaches HLD CVA 05/2017 . Past Surgical History Tubal ligation . Reported Medications Aspirin EC (Aspirin) 325 Mg Tabdr 325 Mg PO DAILY 30 Days Atorvastatin (Atorvastatin Calcium) 80 Mg Tab 80 Mg PO HS 30 Days . Current Medications Medications (Trade) Dose Ordered Sig/Doreen Route Start Time Stop Time Status Last Admin (NS Flush) 2 ml BID IV FLUSH 06/22/17 21:00 06/22/17 21:00 (NS Flush) 2 ml UNSCH PRN IV FLUSH 06/22/17 18:45 (Lipitor) 80 mg HS PO 06/22/17 21:00 (NovoLOG SUPPLEMENTAL SCALE) 1 ACHS SQ 06/22/17 21:00 (D50w (Vial) Inj) 50 ml UNSCH PRN IV PUSH 06/22/17 18:45 (Glucagon Inj) 1 mg UNSCH PRN OTHER 06/22/17 18:45 (Tylenol) 650 mg Q4H PRN PO 06/22/17 18:45 (Zofran Inj) 4 mg Q6H PRN IVP 06/22/17 18:45 (Compazine Supp) 25 mg Q12H PRN RECTAL 06/22/17 18:45 (Tylenol) 650 mg Q6H PRN PO 06/22/17 18:45 (Percocet 5-325 Mg) 1 tab Q6H PRN PO 06/22/17 18:45 (Percocet 10-325 Mg) 1 tab Q6H PRN PO 06/22/17 18:45 (Morphine Inj) 2 mg Q3H PRN IV 06/22/17 18:45 (Morphine Inj) 4 mg Q3H PRN IV 06/22/17 18:45 (Narcan Inj) 0.4 mg UNSCH PRN IV 06/22/17 18:45 (Pari-Colace) 1 tab BID PO 06/22/17 21:00 (Milk Of Magnesia Liq) 30 ml Q12H PRN PO 06/22/17 18:45 (Senokot) 17.2 mg Q12H PRN PO 06/22/17 18:45 (Dulcolax Supp) 10 mg DAILY PRN RECTAL 06/22/17 18:45 (Lactulose Liq) 30 ml DAILY PRN PO 06/22/17 18:45 Sodium Chloride 1,000 ml @ 84 mls/hr [id number] IV 06/22/17 22:45 Family History Mother: CVA, hypertension Father: Alive and well, 90 y/o . Substance Use Tobacco: 1/2 PPD Alcohol: Drinks wine but not daily; she drinks 2-3 glasses when she does drink. Prescription med abuse: None known Illicits: None known . Psychosocial History Patient is . 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 She has 2 children, a son and a daughter, who attend [employer]. . Spiritual/Cultural Factors Pending further discussions with family. Documented care wishes: No known documented care wishes were completed. . Today's verbally stated goals: Patient is unable to verbalize medical treatment goals due to current clinical condition. . Family/friends goals: Family expressing extremely aggressive goals. . Ethical and Legal Issues No known legal or ethical issues impacting care. . Physical Exam Vital Signs Date Time Temp Pulse Resp B/P (MAP) Pulse Ox O2 Delivery O2 Flow Rate FiO2 06/23/17 08:00 98.6 83 20 123/87 (99) 100 06/23/17 05:23 98.6 68 20 147/72 (97) 98 06/23/17 01:03 98.2 73 20 148/69 (95) 99 06/22/17 21:30 06/22/17 20:30 74 18 128/66 (86) 98 Room Air 06/22/17 20:15 98.8 70 20 143/71 (95) 99 06/22/17 20:00 100 Nasal Cannula 2.00 06/22/17 19:00 70 18 122/59 (80) 100 Room Air 06/22/17 19:00 18 98 Room Air 06/22/17 16:32 100 22 158/79 (105) 98 . Exam CONSTITUTIONAL/GENERAL: This is an adequately nourished patient, in no apparent distress. TUBES/LINES/DRAINS: PIV x 1 SKIN:. Ecchymoses on upper extremities. No wounds seen anteriorly. Skin temperature appropriate. Not diaphoretic. HEAD: Atraumatic. Normocephalic. EYES: Pupils equal and round and reactive. No scleral icterus. No injection or drainage. Fundi not examined. ENT: Hearing grossly normal. Nose without bleeding or purulent drainage. NECK: Trachea midline. Supple, nontender. No palpable thyroid enlargement or nodularity. CARDIOVASCULAR: Regular rate and rhythm without murmurs, gallops, or rubs. No JVD. Peripheral pulses symmetric. RESPIRATORY/CHEST: Symmetric, unlabored respirations. Clear to auscultation. Breath sounds diminished bilaterally. No wheezes, rales, or rhonchi. GASTROINTESTINAL: Abdomen soft, non-tender, nondistended. No guarding. Bowel sounds present. GENITOURINARY: Without palpable bladder distension. March catheter draining clear yellow urine. MUSCULOSKELETAL: Extremities without clubbing, cyanosis, or edema. LYMPHATICS: No palpable cervical or supraclavicular adenopathy. NEUROLOGICAL: Arouses to verbal stimuli. Lethargic. Nonverbal. Right hemiaplasia. PSYCHIATRIC: No obvious anxiety/depression. no apparent hallucinations or other psychotic thought process. . Diagnostic Tests Laboratory Laboratory Tests Test 06/22/17 16:54 06/22/17 23:55 06/23/17 06:08 White Blood Count 15.6 TH/MM3 (4.0-11.0) Red Blood Count 5.02 MIL/MM3 (4.00-5.30) Hemoglobin 14.6 GM/DL (11.6-15.3) Hematocrit 45.7 % (35.0-46.0) Mean Corpuscular Volume 91.1 FL (80.0-100.0) Mean Corpuscular Hemoglobin 29.2 PG (27.0-34.0) Mean Corpuscular Hemoglobin Concent 32.0 % (32.0-36.0) Red Cell Distribution Width 14.4 % (11.6-17.2) Platelet Count 255 TH/MM3 (150-450) Mean Platelet Volume 10.0 FL (7.0-11.0) Neutrophils (%) (Auto) 88.3 % (16.0-70.0) Lymphocytes (%) (Auto) 6.7 % (9.0-44.0) Monocytes (%) (Auto) 4.7 % (0.0-8.0) Eosinophils (%) (Auto) 0.1 % (0.0-4.0) Basophils (%) (Auto) 0.2 % (0.0-2.0) Neutrophils # (Auto) 13.7 TH/MM3 (1.8-7.7) Lymphocytes # (Auto) 1.0 TH/MM3 (1.0-4.8) Monocytes # (Auto) 0.7 TH/MM3 (0-0.9) Eosinophils # (Auto) 0.0 TH/MM3 (0-0.4) Basophils # (Auto) 0.0 TH/MM3 (0-0.2) CBC Comment DIFF FINAL Differential Comment Prothrombin Time 10.8 SEC (9.8-11.6) Prothromb Time International Ratio 1.0 RATIO Activated Partial Thromboplast Time 24.7 SEC (24.3-30.1) Blood Urea Nitrogen 12 MG/DL (7-18) Creatinine 0.78 MG/DL (0.50-1.00) Random Glucose 91 MG/DL (74-106) Total Protein 7.3 GM/DL (6.4-8.2) Albumin 3.6 GM/DL (3.4-5.0) Calcium Level 9.0 MG/DL (8.5-10.1) Alkaline Phosphatase 98 U/L (45-117) Aspartate Amino Transf (AST/SGOT) 39 U/L (15-37) Alanine Aminotransferase (ALT/SGPT) 38 U/L (10-53) Total Bilirubin 0.4 MG/DL (0.2-1.0) Sodium Level 141 MEQ/L (136-145) Potassium Level 4.2 MEQ/L (3.5-5.1) Chloride Level 109 MEQ/L (98-107) Carbon Dioxide Level 23.8 MEQ/L (21.0-32.0) Anion Gap 8 MEQ/L (5-15) Estimat Glomerular Filtration Rate 76 ML/MIN (>89) Total Creatine Kinase 142 U/L (26-192) 126 U/L (26-192) Troponin I 0.09 NG/ML (0.02-0.05) 0.09 NG/ML (0.02-0.05) Urine Color YELLOW (YELLW/STRAW) Urine Turbidity HAZY (CLEAR) Urine pH 5.0 (5.0-8.5) Urine Specific [place] 1.015 (1.002-1.035) Urine Protein NEG mg/dL (NEG-TRACE) Urine Glucose (UA) NEG mg/dL (NEG) Urine Ketones NEG mg/dL (NEG) Urine Occult Blood NEG (NEG) Urine Nitrite NEG (NEG) Urine Bilirubin NEG (NEG) Urine Urobilinogen LESS THAN 2.0 MG/DL (LESS Urine Leukocyte Esterase NEG (NEG) Urine RBC LESS THAN 1 /hpf (0-3) Urine WBC 1 /hpf (0-5) Urine Squamous Epithelial Cells 1 /hpf (0-5) Urine Mucus FEW /lpf (OCC) Microscopic Urinalysis Comment CULT NOT INDICATED . Result Diagram: 06/22/17 1654 06/22/17 1654 Imaging Last 72 hours Impressions Head Magnetic Resonance Angiography 06/23/17 0000 Signed Impressions: Service Date/Time: Friday, June 23, 2017 08:24 - CONCLUSION: Normal examination. Flow is now seen within the right posterior cerebral artery peripheral distribution. Keron Wei Jr., MD Brain MRI 06/23/17 0000 Signed Impressions: Service Date/Time: Friday, June 23, 2017 08:24 - CONCLUSION: 1. Large area of infarction involving the left MCA territory with scattered areas of hemorrhage within the infarct bed. 2. Subacute infarct involving the right occipital lobe. 3. The multifocality would raise concern for an embolic event. Keron Wei Jr., MD Head CT 06/22/17 1641 Signed Impressions: Service Date/Time: Thursday, June 22, 2017 16:38 - CONCLUSION: 1. Findings characteristic of acute infarct in the left frontal parietal region with possible small area of hemorrhage. Repeat MRI is recommended Ramírez Warner MD Chest X-Ray 06/22/17 1641 Signed Impressions: Service Date/Time: Thursday, June 22, 2017 16:52 - CONCLUSION: No acute disease. Ronal Hong MD FACR . Procedures 06/23/17: EEG . Patient/Family Conference Present at Family Conference: Met patient's and sister at bedside. . Family Conference Location: Bedside Issues Discussed: * Palliative care role, purpose, approach * Additional medical, psychosocial, and spiritual history * Patients general health, functional status, and cognitive changes in the months leading up to the current hospitalization * Patient/family understanding of the current medical problems * Patients goals of care as best understood from advance directives and/or conversations and/or values * Questions answered to the best of my ability * Palliative care contact information provided . 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 Symptom Scale: (1) Anxiety (2) Pain (3) Weakness Pertinent Non-Medical Issues Psychosocial:Patient is . 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 She has 2 children, a son and a daughter, who attend [employer] [facility] [employer] [facility]. Spiritual: Pending further discussion with patient/family. Legal: Per [place] statutes, in the absence of written advanced directives healthcare proxy decision-making falls to the patient's . Ethical issues impacting care: No known ethical issues impacting care at this time. . Important Contacts Wallace [place], : [phone] . Prognosis Patient is a 57-year-old female who has been relatively healthy at baseline. She is an active smoker. Patient was hospitalized with a CVA on 06/17/17 and discharged on 06/20/17. She returned to [facility] 2 days later on 2016 and was diagnosed with a second CVA, large left MCA infarct. Neurology suspecting aortic arch atheroembolic event. CECI reviewed. Patient will need placement at SNF for rehabilitation upon discharge. Prognosis is guarded. . Code Status: Full Code Plan * FULL CODE * Decision-making: Per [place] statutes, in the absence of written advanced directives health care decision-making falls to the patient's * Goals: Family expressing extremely aggressive goals at this time. * Discussed with Dr. Rebolledo, patient's nurse and case management (Blanca). * MRI of the brain today 06/03/17 shows a large area of infarction involving the left MCA territory with scattered areas of hemorrhage within the infarct bed. Shared imaging results with patient's after discussing with Dr. Whitt. * Palliative care team introduced to patient/family. Contact information provided. * Palliative care will follow this patient throughout her hospitalization to establish trust, assist with symptom management and clarification of medical treatment goals. . Thank you for the opportunity to participate in the care of Ms. Hills. . Attestation To help prompt me to consider important information that might be impacting today's encounter and assessment, information from prior notes written by myself or my colleagues may have been "brought forward" into today's note. My signature on this note, however, is an attestation that I personally performed the exam, history, and/or decision-making noted today, and, unless otherwise indicated, the interactions with patient, family, and staff as well as the review of records all occurred today. I also attest that the listed assessment and stated plan reflect my best clinical judgment today based on the combination of historical information, prior notes, and today's exam/ interactions. When time spent is documented, it refers only to time spent today by the signer, or if indicated, combined time spent today by collaborating physician/nurse practitioner. . Linnette Xiao Jun 23, 2017 12:13
[2017-06-23 12:53] LABS: HEMOGLOBIN A1a 1.2 %; HEMOGLOBIN A1b 0.8 %; HEMOGLOBIN Ao 84.7 %; HEMOGLOBIN LA1C 1.9 %; HEMOGLOBIN P3 3.9 %
--- NOTE | 2017-06-23 15:33 | EKG ---
Date Performed: 06/22/2017 Time Performed: 16:32:31 PTAGE: 57 years EKG: SINUS TACHYCARDIA LEFT ANTERIOR FASCICULAR BLOCK ABNORMAL ECG INTERPRETATION BASED ON A DEF MARIA ELENA AGE OF 40 YEARS PREVIOUS TRACING : 06/18/2017 08. Since the prior tracing, the marked ischemic looking anterolateral T-wave changes are no longer evident. Clinical correlation to exclude reversible dora lateral ischemia is advised. DOCTOR: Sara Palumbo Interpretating Date/Time 06/23/2017 15:31:57
--- NOTE | 2017-06-23 16:07 | ECHRPT ---
Indication: CVA/TIA CONCLUSIONS The left ventricular systolic function is normal with an estimated ejection fraction in the range of 55-60%. Wall thickness is measured at the upper limits of normal. Normal left ventricular size. Trace mitral valve regurgitation. There is mild tricuspid valve regurgitation. The estimated pulmonary arterial pressure is 32 mmHg. BP: 147 / 72 HR: 68 Rhythm: Sinus MEASUREMENTS (Male / Female) Normal Values Technical Quality:Good 2D ECHO LV Diastolic Diameter PLAX 4.9 cm 4.2 - 5.9 / 3.9 - 5.3 cm LV Systolic Diameter PLAX 3.7 cm IVS Diastolic Thickness 0.9 cm 0.6 - 1.0 / 0.6 - 0.9 cm LVPW Diastolic Thickness 1.0 cm 0.6 - 1.0 / 0.6 - 0.9 cm LV Relative Wall Thickness 0.4 RV Internal Dim ED PLAX 1.7 cm LVOT Diameter 2.0 cm M-MODE Aortic Root Diameter MM 3.5 cm LA Systolic Diameter MM 2.6 cm LA Ao Ratio MM 0.7 AV Cusp Separation MM 2.0 cm DOPPLER AV Peak Velocity 151.0 cm/s AV Peak Gradient 9.1 mmHg LVOT Peak Velocity 121.0 cm/s LVOT Peak Gradient 5.9 mmHg AV Area Cont Eq pk 2.5 cm MR Peak Velocity 301.5 cm/s MR Peak Gradient 36.4 mmHg Mitral E Point Velocity 103.0 cm/s Mitral A Point Velocity 75.5 cm/s Mitral E to A Ratio 1.4 LV E' Lateral Velocity 9.6 cm/s Mitral E to LV E' Lateral Ratio 10.8 LV E' Septal Velocity 7.1 cm/s Mitral E to LV E' Septal Ratio 14.5 TR Peak Velocity 258.0 cm/s TR Peak Gradient 26.6 mmHg PV Peak Velocity 100.0 cm/s PV Peak Gradient 4.0 mmHg FINDINGS LEFT VENTRICLE The left ventricular systolic function is low normal with an estimated ejection fraction in the rang e of 50- 55%. Wall thickness is measured at the upper limits of normal. Normal left ventricular size. RIGHT VENTRICLE Normal right ventricular size and systolic function. LEFT ATRIUM The left atrial size is normal. RIGHT ATRIUM The right atrial size is normal. ATRIAL SEPTUM Normal atrial septal thickness without atrial level shunting by limited color doppler interrogation. AORTA The aortic root and proximal ascending aorta are normal in size on limited imaging. MITRAL VALVE Trace mitral valve regurgitation. AORTIC VALVE Trileaflet aortic valve. No aortic valve stenosis or regurgitation. TRICUSPID VALVE There is mild tricuspid valve regurgitation. The estimated pulmonary arterial pressure is 32 mmHg. PULMONARY VALVE The pulmonary valve is not well visualized. VESSELS The inferior vena cava is normal in size. PERICARDIUM No pericardial effusion. Bert Zhang MD (Electronically Signed) Final Date:23 June 2017 16:06
[2017-06-23 16:41] LABS: AUTOMATED NEUTROPHIL # 8.7 TH/MM3 (1.8-7.7); BASOPHIL % 0.2 % (0.0-2.0); EOSINOPHIL % 0.1 % (0.0-4.0); HEMATOCRIT 43.6 % (35.0-46.0); HEMO FLAGS DIFF FINAL; LYMPH % 9.5 % (9.0-44.0); MEAN CELL VOLUME 91.3 FL (80.0-100.0); MEAN CORPUSCULAR HEMOGLOBIN 30.6 PG (27.0-34.0); MEAN CORPUSCULAR HGB CONC 33.6 % (32.0-36.0); MONO % 5.9 % (0.0-8.0); NEUT % 84.3 % (16.0-70.0); PLATELET COUNT 237 TH/MM3 (150-450); RED BLOOD COUNT 4.78 MIL/MM3 (4.00-5.30); RED CELL DISTRIBUTION WIDTH 14.1 % (11.6-17.2); WHITE BLOOD COUNT 10.3 TH/MM3 (4.0-11.0)
[2017-06-23 16:57] LABS: ANION GAP 8 MEQ/L (5-15); AST (GOT) 29 U/L (15-37); BICARBONATE 25.1 MEQ/L (21.0-32.0); BLOOD UREA NITROGEN 12 MG/DL (7-18); CHLORIDE 110 MEQ/L (98-107); GLOMERULAR FILTRATION RATE 93 ML/MIN (>89); MAGNESIUM 2.1 MG/DL (1.5-2.5); POTASSIUM 3.5 MEQ/L (3.5-5.1); SODIUM (NA) 143 MEQ/L (136-145)
[2017-06-23 17:06] LABS: ALKALINE PHOSPHATASE 94 U/L (45-117); ALT (GPT) 34 U/L (10-53); CREATINE KINASE 125 U/L (26-192); FREE T4 1.14 NG/DL (0.76-1.46); HDL CHOLESTEROL 44.2 MG/DL (40.0-60.0); LDL CHOLESTEROL 106 MG/DL (0-99); TOTAL BILIRUBIN ADULT 0.6 MG/DL (0.2-1.0)
[2017-06-23] MEDS ORDERED: FOSPHENYTOIN INJ 500 MGPE in SODIUM CHLORIDE 0.9% INJ 50 ML IV ONE (17:30)
[2017-06-23 17:42] LABS: HEMOGLOBIN A1a 1.5 %; HEMOGLOBIN A1b 1.8 %; HEMOGLOBIN Ao 84.3 %; HEMOGLOBIN P3 3.8 %
[2017-06-23] MEDS: ATORVASTATIN 80 MG TAB PO SCH (21:00)
--- NOTE | 2017-06-23 21:29 | RADRPT ---
EXAM DATE/TIME: 06/23/2017 21:07 [facility] COMPARISON: MRI BRAIN W/O CONTRAST, June 23, 2017, 8:24. CT BRAIN W/O CONTRAST, June 22, 2017, 16:38. INDICATIONS : Altered mental status. Post CVA. RADIATION DOSE: 30.15 CTDIvol (mGy) MEDICAL HISTORY : Stroke. SURGICAL HISTORY : Tubal ligation. ENCOUNTER: Subsequent ACUITY: 2 days PAIN SCALE: 0/10 LOCATION: cranial TECHNIQUE: Multiple contiguous axial images were obtained of the head. Using automated exposure control and adj ustment of the mA and/or kV according to patient size, radiation dose was kept as low as reasonably a chievable to obtain optimal diagnostic quality images. DICOM format image data is available electro nically for review and comparison. FINDINGS: There is exam is compared to the prior CT scan of the brain. Patient has a known acute infarction inv olving the left MCA territory. There is now acute hemorrhage seen within the left frontal lobe surrou nded by edema. This correlates with the recent MRI of the brain. There is a stable area of subacute t o old infarct involving the right occipital lobe. The ventricles remain normal in size and midline in position. The posterior fossa is unremarkable and stable. CONCLUSION: 1. New focal area of intraparenchymal hemorrhage is now noted in the left frontal lobe surrounded by edema. 2. No change in the subacute infarct involving the right except below. Henri Phan MD on June 23, 2017 at 21:24 Board Certified Radiologist. This report was verified electronically.
[2017-06-24] VITALS (8 sets, daily range): BP systolic 134–143; BP diastolic 63–77; PULSE 65–87; RESP 16–20; TEMP 97.5–99.1; O2SAT 95–99
[2017-06-24] MEDS: ATORVASTATIN 80 MG TAB PO SCH (02:22)
[2017-06-24] MEDS: FOSPHENYTOIN SODIUM 100 MG PE/2 ML VIAL IV SCH ×2 (02:23→12:00)
--- NOTE | 2017-06-24 06:56 | HHI.PR ---
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 will need inpt rehab based on current exam no blood thinners 2/2 ich d/w spouse/brother, sisters. we d/w imaging findings, possible causes, tx plan, further testing. their questions were answered d/w emergency room rn re: icu transfer >30 minutes spent (2) Acute right [employer] stroke ICD Codes: I63.531 - Cerebral infarction due to unspecified occlusion or stenosis of right posterior cerebral artery Status: Acute (3) Tobacco consumption ICD Codes: Z72.0 - Tobacco use Status: Resolved (4) HLD (hyperlipidemia) ICD Codes: E78.5 - Hyperlipidemia, unspecified Subjective Subjective Comments No acute events reported shaking episode yesterday family at bedside Active Medications Current Medications Medications (Trade) Dose Ordered Sig/Doreen Route Start Time Stop Time Status Last Admin (NS Flush) 2 ml BID IV FLUSH 06/22/17 21:00 06/23/17 21:00 (NS Flush) 2 ml UNSCH PRN IV FLUSH 06/22/17 18:45 (Lipitor) 80 mg HS PO 06/22/17 21:00 06/23/17 21:00 (NovoLOG SUPPLEMENTAL SCALE) 1 ACHS SQ 06/22/17 21:00 (D50w (Vial) Inj) 50 ml UNSCH PRN IV PUSH 06/22/17 18:45 (Glucagon Inj) 1 mg UNSCH PRN OTHER 06/22/17 18:45 (Tylenol) 650 mg Q4H PRN PO 06/22/17 18:45 (Zofran Inj) 4 mg Q6H PRN IVP 06/22/17 18:45 (Compazine Supp) 25 mg Q12H PRN RECTAL 06/22/17 18:45 (Tylenol) 650 mg Q6H PRN PO 06/22/17 18:45 (Percocet 5-325 Mg) 1 tab Q6H PRN PO 06/22/17 18:45 (Percocet 10-325 Mg) 1 tab Q6H PRN PO 06/22/17 18:45 (Morphine Inj) 2 mg Q3H PRN IV 06/22/17 18:45 (Morphine Inj) 4 mg Q3H PRN IV 06/22/17 18:45 (Narcan Inj) 0.4 mg UNSCH PRN IV 06/22/17 18:45 (Pari-Colace) 1 tab BID PO 06/22/17 21:00 (Milk Of Magnesia Liq) 30 ml Q12H PRN PO 06/22/17 18:45 (Senokot) 17.2 mg Q12H PRN PO 06/22/17 18:45 (Dulcolax Supp) 10 mg DAILY PRN RECTAL 06/22/17 18:45 (Lactulose Liq) 30 ml DAILY PRN PO 06/22/17 18:45 Sodium Chloride 1,000 ml @ 84 mls/hr [id number] IV 06/22/17 22:45 06/23/17 15:06 (Cerebyx Inj) 200 mgpe Q12H IV 06/24/17 00:00 06/24/17 02:23 Allergies Allergies Coded Allergies Penicillins (Verified Allergy, Unknown, 06/15/17) Sulfa (Sulfonamide Antibiotics) (Verified Allergy, Unknown, 06/15/17) Review of Systems All other ROS: ROS reviewed as documented in chart Exam I&O / VS Vital Signs Date Time Temp Pulse Resp B/P (MAP) Pulse Ox O2 Delivery O2 Flow Rate FiO2 06/24/17 06:50 98.8 72 19 136/63 (87) 95 06/24/17 05:30 87 06/23/17 22:00 98.9 80 17 155/84 (107) 96 06/23/17 17:45 99 21 06/23/17 16:33 99.1 81 20 173/83 (113) 100 06/23/17 12:33 98.2 65 20 160/72 (101) 100 06/23/17 09:28 98 06/23/17 08:00 98.6 83 20 123/87 (99) 100 Neurologic: Alert Exam Comments drowsy, easily arousable, not following, non-verbal, mild rt gaze preference, left hh, rt hemiplegia, left > gravity Objective Micro and Labs Laboratory Tests Test 06/23/17 15:45 06/23/17 21:41 06/24/17 04:14 White Blood Count 10.3 Red Blood Count 4.78 Hemoglobin 14.6 Hematocrit 43.6 Mean Corpuscular Volume 91.3 Mean Corpuscular Hemoglobin 30.6 Mean Corpuscular Hemoglobin Concent 33.6 Red Cell Distribution Width 14.1 Platelet Count 237 Mean Platelet Volume 10.0 Neutrophils (%) (Auto) 84.3 Lymphocytes (%) (Auto) 9.5 Monocytes (%) (Auto) 5.9 Eosinophils (%) (Auto) 0.1 Basophils (%) (Auto) 0.2 Neutrophils # (Auto) 8.7 Lymphocytes # (Auto) 1.0 Monocytes # (Auto) 0.6 Eosinophils # (Auto) 0.0 Basophils # (Auto) 0.0 CBC Comment DIFF FINAL Differential Comment Blood Urea Nitrogen 12 Creatinine 0.66 Random Glucose 91 Total Protein 7.3 Albumin 3.6 Calcium Level 8.6 Phosphorus Level 1.9 Magnesium Level 2.1 Alkaline Phosphatase 94 Aspartate Amino Transf (AST/SGOT) 29 Alanine Aminotransferase (ALT/SGPT) 34 Total Bilirubin 0.6 Sodium Level 143 Potassium Level 3.5 Chloride Level 110 Carbon Dioxide Level 25.1 Anion Gap 8 Estimat Glomerular Filtration Rate 93 Hemoglobin A1c 5.8 Total Creatine Kinase 125 119 Troponin I 0.05 0.07 Triglycerides Level 91 Cholesterol Level 168 LDL Cholesterol 106 HDL Cholesterol 44.2 Cholesterol/HDL Ratio 3.80 Free Thyroxine 1.14 Thyroid Stimulating Hormone 3rd Gen 1.380 Phenytoin (Dilantin) Level 9.0 Problem Qualifiers (1) HLD (hyperlipidemia): Qualified Codes: E78.2 - Mixed hyperlipidemia Elton Whitt MD Jun 24, 2017 06:56
[2017-06-24] MEDS: INSULIN ASPART SUPPLEMENTAL SCALE SQ SCH ×4 (07:00→20:56)
[2017-06-24] MEDS: SODIUM CHLOR 0.9% 1000 ML INJ 1,000 ML IV SCH ×2 (07:23→20:16)
[2017-06-24] MEDS: DOCUSATE SODIUM 50 MG/SENNA 8.6 MG TAB PO SCH ×2 (09:00→20:16)
[2017-06-24] MEDS: SODIUM CHLORIDE 0.9% FLUSH 5 ML FLUSH IV FLUSH SCH ×2 (09:00→20:16)
--- NOTE | 2017-06-24 10:09 | HHI.PR ---
Subjective Remarks This is a pleasant 57 y/o Female with recent CVA 06/17/17 with chronic headaches was brought in to ER with Right Hemiparesis and unable to speak she was discharged Home 06/20/17 on Aspirin and Lipitor, she was found her on the floor, not moving and non verbal. He states since she was discharged she was feeling fine, no complaints at home, she was walking around and seemed normal. Patient is non verbal. 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 discussed with patient and her relatives in the room. 06/24: Seen in her bedroom in the presence of her Father Michael Sam, Hannah Slade, her brother and sister, they already discussed with Neurology specialist Doctor Jose Eduardo, he suspected Aortic Arch atheroembolic event CECI reviewed, probable post stroke Seizures started on Cerebyx yesterday, recommended to repeat CT brain and Chest and Abdomen, to look for aortic Arch rule out mass that could cause Hypercoagulable state, she will need inpatient rehab, no blood thinners, also contemplated ICU transfer. Objective Vital Signs Date Time Temp Pulse Resp B/P (MAP) Pulse Ox O2 Delivery O2 Flow Rate FiO2 06/24/17 06:50 98.8 72 19 136/63 (87) 95 06/24/17 05:30 87 06/23/17 22:00 98.9 80 17 155/84 (107) 96 06/23/17 17:45 99 21 06/23/17 16:33 99.1 81 20 173/83 (113) 100 06/23/17 12:33 98.2 65 20 160/72 (101) 100 I/O 06/23/17 06/23/17 06/23/17 06/24/17 06/24/17 06/24/17 07:00 15:00 23:00 07:00 15:00 23:00 Intake Total 1000 ml 50 ml Output Total 1400 ml Balance 1000 ml 50 ml -1400 ml Intake Oral 0 ml IV Total 1000 ml 50 ml Output Urine Total 1400 ml # Voids 0 2 # Bowel Movements 3 Result Diagram: 06/23/17 1545 06/23/17 1545 Imaging Last Impressions Head CT 06/24/17 0000 Signed Impressions: Service Date/Time: Saturday, June 24, 2017 10:21 - CONCLUSION: Evolving stroke as above. Little change from yesterday Charlie De La Cruz MD Head Magnetic Resonance Angiography 06/23/17 0000 Signed Impressions: Service Date/Time: Friday, June 23, 2017 08:24 - CONCLUSION: Normal examination. Flow is now seen within the right posterior cerebral artery peripheral distribution. Keron Wei Jr., MD Brain MRI 06/23/17 0000 Signed Impressions: Service Date/Time: Friday, June 23, 2017 08:24 - CONCLUSION: 1. Large area of infarction involving the left MCA territory with scattered areas of hemorrhage within the infarct bed. 2. Subacute infarct involving the right occipital lobe. 3. The multifocality would raise concern for an embolic event. Keron Wei Jr., MD Chest X-Ray 06/22/17 1641 Signed Impressions: Service Date/Time: Thursday, June 22, 2017 16:52 - CONCLUSION: No acute disease. Ronal Hong MD FACR Procedures None Other Results Laboratory Tests Test 06/22/17 16:54 06/23/17 06:08 06/23/17 15:45 06/23/17 21:41 Prothrombin Time 10.8 SEC Prothromb Time International Ratio 1.0 RATIO Activated Partial Thromboplast Time 24.7 SEC Urine Color YELLOW Urine Turbidity HAZY Urine pH 5.0 Urine Specific [place] 1.015 Urine Protein NEG mg/dL Urine Glucose (UA) NEG mg/dL Urine Ketones NEG mg/dL Urine Occult Blood NEG Urine Nitrite NEG Urine Bilirubin NEG Urine Urobilinogen LESS THAN 2.0 MG/DL Urine Leukocyte Esterase NEG Urine RBC LESS THAN 1 /hpf Urine WBC 1 /hpf Urine Squamous Epithelial Cells 1 /hpf Urine Mucus FEW /lpf Microscopic Urinalysis Comment CULT NOT INDICATED White Blood Count 10.3 TH/MM3 Red Blood Count 4.78 MIL/MM3 Hemoglobin 14.6 GM/DL Hematocrit 43.6 % Mean Corpuscular Volume 91.3 FL Mean Corpuscular Hemoglobin 30.6 PG Mean Corpuscular Hemoglobin Concent 33.6 % Red Cell Distribution Width 14.1 % Platelet Count 237 TH/MM3 Mean Platelet Volume 10.0 FL Neutrophils (%) (Auto) 84.3 % Lymphocytes (%) (Auto) 9.5 % Monocytes (%) (Auto) 5.9 % Eosinophils (%) (Auto) 0.1 % Basophils (%) (Auto) 0.2 % Neutrophils # (Auto) 8.7 TH/MM3 Lymphocytes # (Auto) 1.0 TH/MM3 Monocytes # (Auto) 0.6 TH/MM3 Eosinophils # (Auto) 0.0 TH/MM3 Basophils # (Auto) 0.0 TH/MM3 CBC Comment DIFF FINAL Differential Comment Blood Urea Nitrogen 12 MG/DL Creatinine 0.66 MG/DL Random Glucose 91 MG/DL Total Protein 7.3 GM/DL Albumin 3.6 GM/DL Calcium Level 8.6 MG/DL Phosphorus Level 1.9 MG/DL Magnesium Level 2.1 MG/DL Alkaline Phosphatase 94 U/L Aspartate Amino Transf (AST/SGOT) 29 U/L Alanine Aminotransferase (ALT/SGPT) 34 U/L Total Bilirubin 0.6 MG/DL Sodium Level 143 MEQ/L Potassium Level 3.5 MEQ/L Chloride Level 110 MEQ/L Carbon Dioxide Level 25.1 MEQ/L Anion Gap 8 MEQ/L Estimat Glomerular Filtration Rate 93 ML/MIN Hemoglobin A1c 5.8 % Triglycerides Level 91 MG/DL Cholesterol Level 168 MG/DL LDL Cholesterol 106 MG/DL HDL Cholesterol 44.2 MG/DL Cholesterol/HDL Ratio 3.80 RATIO Free Thyroxine 1.14 NG/DL Thyroid Stimulating Hormone 3rd Gen 1.380 uIU/ML Total Creatine Kinase 119 U/L Troponin I 0.07 NG/ML Test 06/24/17 04:14 Phenytoin (Dilantin) Level 9.0 MCG/ML Objective Remarks GENERAL: This is a well-nourished, non verbal patient. SKIN: No rashes, ecchymoses or lesions. Cool and dry. HEAD: Atraumatic. Normocephalic. EYES: Pupils equal round and slight reaction. ENT: Nose without bleeding, purulent drainage or septal hematoma. Airway patent. NECK: Trachea midline. No JVD or lymphadenopathy. Supple, nontender, no meningeal signs. CARDIOVASCULAR: Regular rate and rhythm without murmurs, gallops, or rubs. RESPIRATORY: Clear to auscultation. Breath sounds equal bilaterally. No wheezes , rales, or rhonchi. GASTROINTESTINAL: Abdomen soft, non-tender, nondistended. MUSCULOSKELETAL: Extremities without clubbing, cyanosis, or edema. No joint tenderness, effusion, or edema noted. NEUROLOGICAL: Awake and non verbal. Right Hemiplegia. Medications and IVs Current Medications Medications (Trade) Dose Ordered Sig/Doreen Route Start Time Stop Time Status Last Admin (NS Flush) 2 ml BID IV FLUSH 06/22/17 21:00 06/23/17 21:00 (NS Flush) 2 ml UNSCH PRN IV FLUSH 06/22/17 18:45 (NovoLOG SUPPLEMENTAL SCALE) 1 ACHS SQ 06/22/17 21:00 (D50w (Vial) Inj) 50 ml UNSCH PRN IV PUSH 06/22/17 18:45 (Glucagon Inj) 1 mg UNSCH PRN OTHER 06/22/17 18:45 (Tylenol) 650 mg Q4H PRN PO 06/22/17 18:45 (Zofran Inj) 4 mg Q6H PRN IVP 06/22/17 18:45 (Compazine Supp) 25 mg Q12H PRN RECTAL 06/22/17 18:45 (Tylenol) 650 mg Q6H PRN PO 06/22/17 18:45 (Percocet 5-325 Mg) 1 tab Q6H PRN PO 06/22/17 18:45 (Percocet 10-325 Mg) 1 tab Q6H PRN PO 06/22/17 18:45 (Morphine Inj) 2 mg Q3H PRN IV 06/22/17 18:45 (Morphine Inj) 4 mg Q3H PRN IV 06/22/17 18:45 (Narcan Inj) 0.4 mg UNSCH PRN IV 06/22/17 18:45 (Pari-Colace) 1 tab BID PO 06/22/17 21:00 (Milk Of Magnesia Liq) 30 ml Q12H PRN PO 06/22/17 18:45 (Senokot) 17.2 mg Q12H PRN PO 06/22/17 18:45 (Dulcolax Supp) 10 mg DAILY PRN RECTAL 06/22/17 18:45 (Lactulose Liq) 30 ml DAILY PRN PO 06/22/17 18:45 Sodium Chloride 1,000 ml @ 84 mls/hr [id number] IV 06/22/17 22:45 06/24/17 07:23 (Cerebyx Inj) 200 mgpe Q12H IV 06/24/17 00:00 06/24/17 02:23 A/P Assessment and Plan 57 y/o female with a history of a recent CVA 06/17/2017 and chronic headaches was brought to the ED with right hemiparesis and unable to speak. She was discharged home on Thursday and was given aspirin and Lipitor. Per the patient' s she was last seen normal at 8am this morning when he left for work, he states several people tried to call her but she did not answer, when he returned from work he found her on the floor, not moving and non verbal. Left Infarction involving The left MCA territory with scattered areas of Hemorrhage within the infarct bed, Subacute infarct involving the right occipital lobe, The Multifocality call attention about Embolic Event. 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 new CT brain no change from yesterday Discussed with her Family more than 30 minutes spent in this issues, talking with nurse, coordinating with Dentures Lab Technician and Relatives wanted transfer to another hospital told me they want [facility]. HLD, chronic -High intensity Statin, LDL 108 need to be below 70. Leukocytosis, likely reactive, Improved, UA negative for infection. Severe Tobacco dependence strongly recommended to stop smoking. started on Bronchodilator, Mucolytic and incentive spirometry. Medical Non compliance the patient continue smoking even having this pathology. DVT prophylaxis: SCDs, hold chemical for now for possible hemorrhage Discussed Condition With Patient, her relatives, Nurse and Dentures Lab Technician. all questions answered to the best of my abilities. Discharge Planning Once cleared by Neurology specialist. Michael Brooks MD Jun 24, 2017 10:09
[2017-06-24] MEDS ORDERED: ONABOTULINUMTOXINA INJ 100 UNITS/VIAL ONE (10:30)
[2017-06-24] MEDS ORDERED: DIATRIZOATE MEGLUM/DIATRIZOATE SOD 9 ML CUP PO ONE (10:30)
--- NOTE | 2017-06-24 11:03 | RADRPT ---
EXAM DATE/TIME: 06/24/2017 10:21 [place] COMPARISON: MRI BRAIN W/O CONTRAST, June 23, 2017, 8:24. CT BRAIN W/O CONTRAST, June 23, 2017, 21:07. INDICATIONS : Follow up for stroke. RADIATION DOSE: 30.77 CTDIvol (mGy) MEDICAL HISTORY : Stroke. SURGICAL HISTORY : None. ENCOUNTER: Subsequent ACUITY: 2 days PAIN SCALE: Non-responsive LOCATION: cranial TECHNIQUE: Multiple contiguous axial images were obtained of the head. Using automated exposure control and adj ustment of the mA and/or kV according to patient size, radiation dose was kept as low as reasonably a chievable to obtain optimal diagnostic quality images. DICOM format image data is available electro nically for review and comparison. FINDINGS: There is evolving mixed density brain injury in the left MCA territory, very similar to yesterday's a ppearance with a moderate degree of regional effacement of cortical sulci and minimal compression of the left lateral ventricle. No subfalcine shift. Hypodensity in the medial right occipital region is also grossly unchanged. No new acute findings are identified. No drainable hemorrhage at present. CONCLUSION: Evolving stroke as above. Little change from yesterday Charlie De La Cruz MD on June 24, 2017 at 10:32 Board Certified Radiologist. This report was verified electronically.
[2017-06-24 14:00] LABS: ANA SCREEN NEG (NEG)
--- NOTE | 2017-06-24 16:50 | HHI.HCPN ---
Reason for visit a. To assist with evaluation and management of symptoms including: weakness, aphasia,anxiety b. To assist medical decision maker(s) with: better understanding of current medical conditions; weighing benefits/burdens of medical treatment options; making medical treatment decisions. . Subjective/Interval History Ms. Hills was seen and assessed in room 1513 status post left MCA infarct. Multiple family members are present. Patient appears to be sleeping in no apparent distress. She arouses to verbal stimuli. Patient anticipated and speech therapy today. Per ST notes, patient was able to follow one-step commands with 75% accuracy. Attempting to phonate. She was unable to sing but was humming. When asked to point to the letter "F", the patient stated "I don' t know". On exam, the patient is able to answer yes/no questions by nodding/ shaking her head appropriately most of the time. Current diet consists of pur e with nectar consistency thickened liquids. Patient was able to sit on the edge of the bed with physical therapy assistance. Patient shakes her head no when asked if she is experiencing pain, anxiety or shortness breath. She shows no signs or symptoms of nonverbal pain. Respirations are unlabored. Family spoke with Dr. Rebolledo and the neurologist, Dr. Whitt earlier today. Dr. Whitt suspects aortic arch atheroembolic event. CECI was reviewed. Possible probable post stroke seizures; patient started on Cerebyx yesterday. Follow-up CT of the head later today showed no new acute findings were identified; no drainable hemorrhage at present. Order placed for transfer to critical care secondary to somnolence and ongoing neurological evaluations. . Advance Directives Advance Directive Specifics Documented care wishes: No known documented care wishes were completed. . Significant change in goals: Aggressive goals verbalized by family members. . Objective Vital Signs Date Time Temp Pulse Resp B/P (MAP) Pulse Ox O2 Delivery O2 Flow Rate FiO2 06/24/17 12:00 97.5 65 16 134/70 (91) 98 06/24/17 11:41 86 06/24/17 06:50 98.8 72 19 136/63 (87) 95 06/24/17 05:30 87 06/23/17 22:00 98.9 80 17 155/84 (107) 96 06/23/17 17:45 99 21 06/23/17 16:33 99.1 81 20 173/83 (113) 100 Intake & Output 06/24/17 06/24/17 07:00 19:00 Output Total 1400 ml 300 ml Balance -1400 ml -300 ml Output Urine Total 1400 ml 300 ml . Physical Exam CONSTITUTIONAL/GENERAL: This is an adequately nourished patient, in no apparent distress. TUBES/LINES/DRAINS: PIV x 1 SKIN:. Ecchymoses on upper extremities. No wounds seen anteriorly. Skin temperature appropriate. Not diaphoretic. HEAD: Atraumatic. Normocephalic. EYES: Pupils equal and round and reactive. No scleral icterus. No injection or drainage. Fundi not examined. ENT: Hearing grossly normal. Nose without bleeding or purulent drainage. NECK: Trachea midline. Supple, nontender. No palpable thyroid enlargement or nodularity. CARDIOVASCULAR: Regular rate and rhythm without murmurs, gallops, or rubs. No JVD. Peripheral pulses symmetric. RESPIRATORY/CHEST: Symmetric, unlabored respirations. Clear to auscultation. Breath sounds equal bilaterally. No wheezes, rales, or rhonchi. GASTROINTESTINAL: Abdomen soft, non-tender, nondistended. No guarding. Bowel sounds present. Tolerating pured diet and nectar consistency thickened liquids GENITOURINARY: Without palpable bladder distension. March catheter draining clear yellow urine. MUSCULOSKELETAL: Extremities without clubbing, cyanosis, or edema. LYMPHATICS: No palpable cervical or supraclavicular adenopathy. NEUROLOGICAL: Arouses to verbal stimuli. Nonverbal. Able to answer yes/no questions by nodding/shaking head. Right hemiaplasia. PSYCHIATRIC: No obvious anxiety/depression. no apparent hallucinations or other psychotic thought process. . Diagnostic Tests Laboratory Laboratory Tests Test 06/22/17 16:54 06/22/17 23:55 06/23/17 06:08 06/23/17 15:45 White Blood Count 15.6 TH/MM3 (4.0-11.0) 10.3 TH/MM3 (4.0-11.0) Red Blood Count 5.02 MIL/MM3 (4.00-5.30) 4.78 MIL/MM3 (4.00-5.30) Hemoglobin 14.6 GM/DL (11.6-15.3) 14.6 GM/DL (11.6-15.3) Hematocrit 45.7 % (35.0-46.0) 43.6 % (35.0-46.0) Mean Corpuscular Volume 91.1 FL (80.0-100.0) 91.3 FL (80.0-100.0) Mean Corpuscular Hemoglobin 29.2 PG (27.0-34.0) 30.6 PG (27.0-34.0) Mean Corpuscular Hemoglobin Concent 32.0 % (32.0-36.0) 33.6 % (32.0-36.0) Red Cell Distribution Width 14.4 % (11.6-17.2) 14.1 % (11.6-17.2) Platelet Count 255 TH/MM3 (150-450) 237 TH/MM3 (150-450) Mean Platelet Volume 10.0 FL (7.0-11.0) 10.0 FL (7.0-11.0) Neutrophils (%) (Auto) 88.3 % (16.0-70.0) 84.3 % (16.0-70.0) Lymphocytes (%) (Auto) 6.7 % (9.0-44.0) 9.5 % (9.0-44.0) Monocytes (%) (Auto) 4.7 % (0.0-8.0) 5.9 % (0.0-8.0) Eosinophils (%) (Auto) 0.1 % (0.0-4.0) 0.1 % (0.0-4.0) Basophils (%) (Auto) 0.2 % (0.0-2.0) 0.2 % (0.0-2.0) Neutrophils # (Auto) 13.7 TH/MM3 (1.8-7.7) 8.7 TH/MM3 (1.8-7.7) Lymphocytes # (Auto) 1.0 TH/MM3 (1.0-4.8) 1.0 TH/MM3 (1.0-4.8) Monocytes # (Auto) 0.7 TH/MM3 (0-0.9) 0.6 TH/MM3 (0-0.9) Eosinophils # (Auto) 0.0 TH/MM3 (0-0.4) 0.0 TH/MM3 (0-0.4) Basophils # (Auto) 0.0 TH/MM3 (0-0.2) 0.0 TH/MM3 (0-0.2) CBC Comment DIFF FINAL DIFF FINAL Differential Comment Prothrombin Time 10.8 SEC (9.8-11.6) Prothromb Time International Ratio 1.0 RATIO Activated Partial Thromboplast Time 24.7 SEC (24.3-30.1) Blood Urea Nitrogen 12 MG/DL (7-18) 12 MG/DL (7-18) Creatinine 0.78 MG/DL (0.50-1.00) 0.66 MG/DL (0.50-1.00) Random Glucose 91 MG/DL (74-106) 91 MG/DL (74-106) Total Protein 7.3 GM/DL (6.4-8.2) 7.3 GM/DL (6.4-8.2) Albumin 3.6 GM/DL (3.4-5.0) 3.6 GM/DL (3.4-5.0) Calcium Level 9.0 MG/DL (8.5-10.1) 8.6 MG/DL (8.5-10.1) Alkaline Phosphatase 98 U/L (45-117) 94 U/L (45-117) Aspartate Amino Transf (AST/SGOT) 39 U/L (15-37) 29 U/L (15-37) Alanine Aminotransferase (ALT/SGPT) 38 U/L (10-53) 34 U/L (10-53) Total Bilirubin 0.4 MG/DL (0.2-1.0) 0.6 MG/DL (0.2-1.0) Sodium Level 141 MEQ/L (136-145) 143 MEQ/L (136-145) Potassium Level 4.2 MEQ/L (3.5-5.1) 3.5 MEQ/L (3.5-5.1) Chloride Level 109 MEQ/L (98-107) 110 MEQ/L (98-107) Carbon Dioxide Level 23.8 MEQ/L (21.0-32.0) 25.1 MEQ/L (21.0-32.0) Anion Gap 8 MEQ/L (5-15) 8 MEQ/L (5-15) Estimat Glomerular Filtration Rate 76 ML/MIN (>89) 93 ML/MIN (>89) Total Creatine Kinase 142 U/L (26-192) 126 U/L (26-192) 125 U/L (26-192) Troponin I 0.09 NG/ML (0.02-0.05) 0.09 NG/ML (0.02-0.05) 0.05 NG/ML (0.02-0.05) Hemoglobin A1c 5.9 % (4.3-6.0) 5.8 % (4.3-6.0) Urine Color YELLOW (YELLW/STRAW) Urine Turbidity HAZY (CLEAR) Urine pH 5.0 (5.0-8.5) Urine Specific [place] 1.015 (1.002-1.035) Urine Protein NEG mg/dL (NEG-TRACE) Urine Glucose (UA) NEG mg/dL (NEG) Urine Ketones NEG mg/dL (NEG) Urine Occult Blood NEG (NEG) Urine Nitrite NEG (NEG) Urine Bilirubin NEG (NEG) Urine Urobilinogen LESS THAN 2.0 MG/DL (LESS Urine Leukocyte Esterase NEG (NEG) Urine RBC LESS THAN 1 /hpf (0-3) Urine WBC 1 /hpf (0-5) Urine Squamous Epithelial Cells 1 /hpf (0-5) Urine Mucus FEW /lpf (OCC) Microscopic Urinalysis Comment CULT NOT INDICATED Phosphorus Level 1.9 MG/DL (2.5-4.9) Magnesium Level 2.1 MG/DL (1.5-2.5) Triglycerides Level 91 MG/DL (42-150) Cholesterol Level 168 MG/DL (120-200) LDL Cholesterol 106 MG/DL (0-99) HDL Cholesterol 44.2 MG/DL (40.0-60.0) Cholesterol/HDL Ratio 3.80 RATIO Free Thyroxine 1.14 NG/DL (0.76-1.46) Thyroid Stimulating Hormone 3rd Gen 1.380 uIU/ML (0.358-3.740) Anti-Nuclear Antibody Screen NEG (NEG) Rapid Plasma Reagin NON-REACTIVE (NON-REACTVE) Test 06/23/17 21:41 06/24/17 04:14 Total Creatine Kinase 119 U/L (26-192) Troponin I 0.07 NG/ML (0.02-0.05) Phenytoin (Dilantin) Level 9.0 MCG/ML (10.0-20.0) . Result Diagram: 06/23/17 1545 06/23/17 1545 Imaging Last [address] 06/24/17 0000 Signed Impressions: Service Date/Time: Saturday, June 24, 2017 10:21 - CONCLUSION: Evolving stroke as above. Little change from yesterday Charlie De La Cruz MD Head Magnetic Resonance Angiography 06/23/17 0000 Signed Impressions: Service Date/Time: Friday, June 23, 2017 08:24 - CONCLUSION: Normal examination. Flow is now seen within the right posterior cerebral artery peripheral distribution. Keron Wei Jr., MD Head CT 06/23/17 0000 Signed Impressions: Service Date/Time: Friday, June 23, 2017 21:07 - CONCLUSION: 1. New focal area of intraparenchymal hemorrhage is now noted in the left frontal lobe surrounded by edema. 2. No change in the subacute infarct involving the right except below. Hneri Phan MD Brain MRI 06/23/17 0000 Signed Impressions: Service Date/Time: Friday, June 23, 2017 08:24 - CONCLUSION: 1. Large area of infarction involving the left MCA territory with scattered areas of hemorrhage within the infarct bed. 2. Subacute infarct involving the right occipital lobe. 3. The multifocality would raise concern for an embolic event. Keron Wei Jr., MD Head CT 06/22/17 1641 Signed Impressions: Service Date/Time: Thursday, June 22, 2017 16:38 - CONCLUSION: 1. Findings characteristic of acute infarct in the left frontal parietal region with possible small area of hemorrhage. Repeat MRI is recommended Ramírez Warner MD Chest X-Ray 06/22/17 1641 Signed Impressions: Service Date/Time: Thursday, June 22, 2017 16:52 - CONCLUSION: No acute disease. Ronal Hong MD FACR . Procedures 06/23/17: EEG . 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 Symptom Scale: (1) Anxiety (2) Pain (3) Weakness Pertinent Non-Medical Issues Psychosocial:Patient is . 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 She has 2 children, a son and a daughter, who attend [employer]. Spiritual: Pending further discussion with patient/family. Legal: Per [place] statutes, in the absence of written advanced directives healthcare proxy decision-making falls to the patient's . Ethical issues impacting care: No known ethical issues impacting care at this time. . Important Contacts [place], : [phone] . Prognosis Patient is a 57-year-old female who has been relatively healthy at baseline. She is an active smoker. Patient was hospitalized with a CVA on 06/17/17 and discharged on 06/20/17. She returned to [facility] 2 days later on 2016 and was diagnosed with a second CVA, large left MCA infarct. Neurology suspecting aortic arch atheroembolic event. CECI reviewed. Patient will need placement at SNF for rehabilitation upon discharge. Prognosis is guarded. . Code Status: Full Code Plan * FULL CODE * Decision-making: Per [place] statutes, in the absence of written advanced directives health care decision-making falls to the patient's * Goals: Family expressing extremely aggressive goals at this time. * Discussed with community artist (Cory) and case management (Blanca). * Met with multiple family members at bedside to provide an update on patient's clinical condition and discuss medical treatment goals.Dr. Whitt placed and order for the patient to be transferred to critical care secondary to somnolence and ongoing neurological evaluations. * Symptom management- dysarthria: Patient anticipated and speech therapy today. Per ST notes, patient was able to follow one-step commands with 75% accuracy. Attempting to phonate. She was unable to sing but was humming. When asked to point to the letter "F", the patient stated "I don't know". On exam, the patient is able to answer yes/no questions by nodding/shaking her head appropriately most of the time. * Symptom management - weakness: Patient was able to sit on the edge of the bed with physical therapy assistance. Patient will require placement at SNF for rehabilitation upon discharge. * Patient shakes her head no when asked if she is experiencing pain, anxiety or shortness breath. She shows no signs or symptoms of nonverbal pain. Respirations are unlabored. * Family spoke with Dr. Rebolledo and the neurologist, Dr. Whitt earlier today. Dr. Whitt suspects aortic arch atheroembolic event. CECI was reviewed. Possible probable post stroke seizures; patient started on Cerebyx yesterday. * Follow-up CT of the head later today showed no new acute findings were identified; no drainable hemorrhage at present. * Palliative care providing ongoing support and active listening. . Attestation To help prompt me to consider important information that might be impacting today's encounter and assessment, information from prior notes written by myself or my colleagues may have been "brought forward" into today's note. My signature on this note, however, is an attestation that I personally performed the exam, history, and/or decision-making noted today, and, unless otherwise indicated, the interactions with patient, family, and staff as well as the review of records all occurred today. I also attest that the listed assessment and stated plan reflect my best clinical judgment today based on the combination of historical information, prior notes, and today's exam/ interactions. When time spent is documented, it refers only to time spent today by the signer, or if indicated, combined time spent today by collaborating physician/nurse practitioner. . Linnette Xiao Jun 24, 2017 16:50
[2017-06-24] MEDS ORDERED: IOHEXOL 350 MG/ML 10 ML VIAL (for RAD DIAG) IVCONTRAST ONE (20:16)
--- NOTE | 2017-06-24 21:05 | RADRPT ---
EXAM DATE/TIME: 06/24/2017 19:40 [facility] COMPARISON: No previous studies available for comparison. INDICATIONS : Evaluate for aortic dissection. IV CONTRAST: 96 cc Omnipaque 350 (iohexol) IV ; Cumulative dose for multiple exams. RADIATION DOSE: 5.11 CTDIvol (mGy) ; Combined studies - Thorax/Abdomen/Pelvis MEDICAL HISTORY : None SURGICAL HISTORY : Tubal ligation. ENCOUNTER: Initial ACUITY: 1 day PAIN SCALE: 0/10 LOCATION: chest TECHNIQUE: Volumetric scanning of the chest was performed. Using automated exposure control and adjustment of t he mA and/or kV according to patient size, radiation dose was kept as low as reasonably achievable to obtain optimal diagnostic quality images. DICOM format image data is available electronically for review and comparison. Follow-up recommendations for detected pulmonary nodules are based at a minimum on nodule size and pa tient risk factors according to Fleischner Society Guidelines. FINDINGS: LUNGS: There is mild increased density at the posterior aspects of the lungs bilaterally, worse on the right , likely related to atelectasis or mild consolidation. There is a 0.5 cm nodule seen at the left late ral base just above the left hemidiaphragm. PLEURA: There is no pleural thickening or pleural effusion. MEDIASTINUM: The heart and great vessels demonstrate no acute abnormality. There is no mediastinal or hilar lymph adenopathy. The thoracic aorta appears normal without dissection or aneurysm. AXILLAE: Within normal limits. No lymphadenopathy. SKELETAL: Within normal limits for patient age. MISCELLANEOUS: The visualized upper abdominal organs demonstrate no acute abnormality. CONCLUSION: 1. The thoracic aorta is intact. 2. Suspected bibasilar areas of atelectasis or consolidation being worse on the left. 3. Small 0.5 cm pulmonary nodule at the left lower lung. This could be followed with a noncontrast CT examination in 6 months. Charlie Chand MD on June 24, 2017 at 20:59 Board Certified Radiologist. This report was verified electronically.
--- NOTE | 2017-06-24 21:48 | RADRPT ---
EXAM DATE/TIME: 06/24/2017 19:40 [facility] COMPARISON: No previous studies available for comparison. INDICATIONS : Evaluate for metastases. IV CONTRAST: 96 cc Omnipaque 350 (iohexol) IV ; Cumulative dose for multiple exams. ORAL CONTRAST: No oral contrast ingested. RADIATION DOSE: 5.11 CTDIvol (mGy) ; Combined studies - Thorax/Abdomen/Pelvis MEDICAL HISTORY : None SURGICAL HISTORY : Tubal ligation. ENCOUNTER: Initial ACUITY: 1 day PAIN SCALE: 0/10 LOCATION: Abdomen TECHNIQUE: Volumetric scanning of the abdomen and pelvis was performed. Using automated exposure control and adjustment of the mA and/or kV according to patient size, radiation dose was kept as low as reasonably achievable to obtain optimal diagnostic quality images. DICOM format image data is av ailable electronically for review and comparison. FINDINGS: There is decreased attenuation seen throughout the liver. No focal hepatic lesions are seen. The spleen, pancreas, adrenal glands and kidneys are normal. Scattered atherosclerotic calcif ications are seen throughout the arterial system. No aneurysm or dissection is seen. There is nonspe cific thickening of the proximal small bowel. This could be secondary to lack of distension or hypert rophy. An underlying lesion cannot be excluded. Significant surrounding inflammatory change is not seen. There are some scattered diverticula in this region. Significant areas of adenopathy are not seen throughout the study. Bony structures appear grossly intact. There is a small nodule seen at t he posterior lateral left lower lobe more fully described on the CT of the chest report. No other pu lmonary nodules were seen. There is suspected atelectasis or consolidation at the lung bases being w orse on the right. CONCLUSION: 1. Thickening of the proximal sigmoid colon. This could be secondary to lack of distension and some d egree of underlying hypertrophy. Underlying processes including some inflammation or a neoplasm loc ot be excluded. The fat around the colon in this region appears normal. There are some scattered div erticula. 2. Hepatic steatosis. 3. 5 mm pulmonary nodule seen at the left lower lobe. This is a solitary pulmonary nodule more fully described on the CT of the chest report. Charlie Chand MD on June 24, 2017 at 21:03 Board Certified Radiologist. This report was verified electronically.
[2017-06-25] VITALS (12 sets, daily range): BP systolic 128–156; BP diastolic 66–79; PULSE 59–76; RESP 14–30; TEMP 98–98.7; O2SAT 95–97
[2017-06-25] MEDS: FOSPHENYTOIN SODIUM 100 MG PE/2 ML VIAL IV SCH ×3 (00:04→23:53)
[2017-06-25] MEDS: INSULIN ASPART SUPPLEMENTAL SCALE SQ SCH ×4 (06:38→21:00)
[2017-06-25] MEDS: DOCUSATE SODIUM 50 MG/SENNA 8.6 MG TAB PO SCH ×2 (08:26→21:00)
[2017-06-25] MEDS: SODIUM CHLORIDE 0.9% FLUSH 5 ML FLUSH IV FLUSH SCH ×2 (09:00→21:00)
--- NOTE | 2017-06-25 09:09 | HHI.PR ---
Review/Management Diagnosis/Plan: (1) Acute ischemic left MCA stroke ICD Codes: I63.512 - Cerebral infarction due to unspecified occlusion or stenosis of left middle cerebral artery Status: Acute Plan: appears to have a new left mca region stroke has had an extensive evaluation performed recently suspect aortic arch atheroembolic event levy reviewed probable post-stroke sz- cerebryx added recs doing alot better today repeat ct brain/chest/abd; brain stable, chest: small nodule, abd: colon thickening gi eval of ct scan repeat ct chest in 4-8 weeks- defer to medical for further input spouse has written the above information and will share with the rest of their family and their doctor, Dr. Epstein in [place], who I spoke to yesterday f/u dilantin repeat ct brain on Thursday; if ich minimal/resolved, start aspirin 81mg qd. will look at adding plavix in future Dr. 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 ICD Codes: I63.531 - Cerebral infarction due to unspecified occlusion or stenosis of right posterior cerebral artery Status: Acute (3) Tobacco consumption ICD Codes: Z72.0 - Tobacco use Status: Resolved (4) HLD (hyperlipidemia) ICD Codes: E78.5 - Hyperlipidemia, unspecified Subjective Subjective Comments No acute events reported No headache No chest pain No dyspnea Active Medications Current Medications Medications (Trade) Dose Ordered Sig/Doreen Route Start Time Stop Time Status Last Admin (NS Flush) 2 ml BID IV FLUSH 06/22/17 21:00 06/24/17 20:16 (NS Flush) 2 ml UNSCH PRN IV FLUSH 06/22/17 18:45 (NovoLOG SUPPLEMENTAL SCALE) 1 ACHS SQ 06/22/17 21:00 (D50w (Vial) Inj) 50 ml UNSCH PRN IV PUSH 06/22/17 18:45 (Glucagon Inj) 1 mg UNSCH PRN OTHER 06/22/17 18:45 (Tylenol) 650 mg Q4H PRN PO 06/22/17 18:45 (Zofran Inj) 4 mg Q6H PRN IVP 06/22/17 18:45 (Compazine Supp) 25 mg Q12H PRN RECTAL 06/22/17 18:45 (Tylenol) 650 mg Q6H PRN PO 06/22/17 18:45 (Percocet 5-325 Mg) 1 tab Q6H PRN PO 06/22/17 18:45 (Percocet 10-325 Mg) 1 tab Q6H PRN PO 06/22/17 18:45 (Morphine Inj) 2 mg Q3H PRN IV 06/22/17 18:45 (Morphine Inj) 4 mg Q3H PRN IV 06/22/17 18:45 (Narcan Inj) 0.4 mg UNSCH PRN IV 06/22/17 18:45 (Pari-Colace) 1 tab BID PO 06/22/17 21:00 (Milk Of Magnesia Liq) 30 ml Q12H PRN PO 06/22/17 18:45 (Senokot) 17.2 mg Q12H PRN PO 06/22/17 18:45 (Dulcolax Supp) 10 mg DAILY PRN RECTAL 06/22/17 18:45 (Lactulose Liq) 30 ml DAILY PRN PO 06/22/17 18:45 Sodium Chloride 1,000 ml @ 84 mls/hr [id number] IV 06/22/17 22:45 06/24/17 20:16 (Cerebyx Inj) 200 mgpe Q12H IV 06/24/17 00:00 06/25/17 00:04 Allergies Allergies Coded Allergies Penicillins (Verified Allergy, Unknown, 06/15/17) Sulfa (Sulfonamide Antibiotics) (Verified Allergy, Unknown, 06/15/17) Review of Systems All other ROS: ROS reviewed as documented in chart Exam I&O / VS Vital Signs Date Time Temp Pulse Resp B/P (MAP) Pulse Ox O2 Delivery O2 Flow Rate FiO2 06/25/17 06:00 63 06/25/17 04:00 98.4 61 21 150/75 (100) 95 06/25/17 04:00 61 06/25/17 02:00 61 06/25/17 00:00 76 06/25/17 00:00 98.3 76 14 156/73 (100) 96 06/24/17 22:00 69 06/24/17 20:00 98.8 70 20 143/74 (97) 99 06/24/17 20:00 69 06/24/17 19:00 98 Nasal Cannula 2.00 06/24/17 18:00 73 06/24/17 17:00 99.1 67 20 141/77 (98) 96 06/24/17 17:00 69 06/24/17 12:00 97.5 65 16 134/70 (91) 98 06/24/17 11:41 86 Neurologic: Alert Exam Comments alert, sitting up, speaks 1-3 words; mixed aphasia, smiling, left hh, rt hemiparesis 2-3/5, left > gravity Objective Micro and Labs Laboratory Tests Test 06/25/17 03:47 06/25/17 05:00 Phenytoin (Dilantin) Level 10.0 Nasal Screen MRSA (PCR) MRSA NOT DETECTED Problem Qualifiers (1) HLD (hyperlipidemia): Qualified Codes: E78.2 - Mixed hyperlipidemia Elton Whitt MD Jun 25, 2017 09:09
[2017-06-25] MEDS: SODIUM CHLOR 0.9% 1000 ML INJ 1,000 ML IV SCH ×2 (09:40→22:15)
--- NOTE | 2017-06-25 11:31 | PD.CONS ---
HPI History of Present Illness This is a 57 year old female who was hospitalized for a right medial occipital infarct on 06/17/17. Her workup was essentially unremarkable and she was discharged home on aspirin therapy. She was then found down with garbled speech and right sided weakness for an unknown period of time on 06/22/17 and was brought to the emergency room for further evaluation. She was found to have an acute ischemic left MCA stroke and admitted to the intensive care unit. Neurology is following and suspects an aortic arch atheroembolic event. She was evaluated with a CT scan of the thorax/abdomen/pelvis (06/24/17) and this revealed the thoracic aorta is intact, suspected bibasilar areas of atelectasis or consolidation being worse on the left, small 0.5 cm pulmonary nodule at the left lower lung. This could be followed with a noncontrast CT examination in 6 months; thickening of the proximal sigmoid colon. This could be secondary to lack of distention and some degree of underlying hypertrophy. Underlying processes including some inflammation or a neoplasm cannot be excluded. The fat around the colon in this region appears normal. There are some scattered diverticula, hepatic steatosis, 5 mm pulmonary nodule seen at the left lower lobe. This is a solitary pulmonary nodule more full described on the CT of the chest report. GI has been consulted for further evaluation of her sigmoid colon thickening. She is currently awake with aphasia. She can answer simple questions, but is unable to provide much history and therefore the history has been obtained from the EMR, nursing staff, and who is at the bedside. She has never had a colonoscopy. She denies any known history of diverticulitis. She denies any known family history of esophageal, gastric, or colorectal cancer. Her does report, that she was having some diarrhea about a week ago. This has improved, although the nurse reports that she is still having some loose stools- no blood or mucous. Her reports that her appetite has been good. She has lost 15 lbs over the past month or two, but this was planned and she was following a low carb diet. The patient is not having any nausea/vomiting. She is afebrile. She denies any abdominal pain and does not seem to have any tenderness on exam. She was recently hospitalized, but has not had any recent suspicious food, sick contacts, or exotic travel. (Roxanna Bergeron) PFSH Past Medical History Chronic headaches Hyperlipidemia Recent CVA Past Surgical History Tubal ligation (Roxanna Bergeron) Coded Allergies: Penicillins (Verified Allergy, Unknown, 06/15/17) Sulfa (Sulfonamide Antibiotics) (Verified Allergy, Unknown, 06/15/17) Medications Allergies Coded Allergies Type Severity Reaction Last Updated Verified Penicillins Allergy Unknown 06/15/17 Yes Sulfa (Sulfonamide Antibiotics) Allergy Unknown 06/15/17 Yes Active Scripts Medications Dose Route/Sig Max Daily Dose Days Date Category Aspirin EC (Aspirin) 325 Mg Tabdr 325 Mg PO DAILY 30 06/19/17 Rx Atorvastatin (Atorvastatin Calcium) 80 Mg Tab 80 Mg PO HS 30 06/19/17 Rx Family History Per EMR: Mother: CVA, hypertension Father: Alive and well, 90 y/o Denies any family hx of esophageal, gastric, or colorectal cancer. Social History Tobacco: smokes 1/2 PPD Alcohol: drinks wine socially Illicit Drugs: Denies (Roxanna Bergeron) Review of Systems Constitutional: COMPLAINS OF: Fatigue, Weight loss (planned), DENIES: Fever, Chills Respiratory: DENIES: Cough Cardiovascular: DENIES: Chest pain Gastrointestinal: COMPLAINS OF: Diarrhea, DENIES: Abdominal pain, Black stools , Bloody stools, Constipation, Nausea, Vomiting, Swelling of Abdomen Musculoskeletal: DENIES: Joint pain Integumentary: DENIES: Abnormal pigmentation Neurologic: COMPLAINS OF: Abnormal gait, Localized weakness Psychiatric: DENIES: Confusion (Roxanna Bergeron) GI Exam Vitals I&O Vital Signs Date Time Temp Pulse Resp B/P (MAP) Pulse Ox O2 Delivery O2 Flow Rate FiO2 06/25/17 10:00 59 06/25/17 08:00 95 Room Air 06/25/17 08:00 70 06/25/17 08:00 98.0 72 21 134/79 (97) 97 06/25/17 06:00 63 06/25/17 04:00 98.4 61 21 150/75 (100) 95 06/25/17 04:00 61 06/25/17 02:00 61 06/25/17 00:00 76 06/25/17 00:00 98.3 76 14 156/73 (100) 96 06/24/17 22:00 69 06/24/17 20:00 98.8 70 20 143/74 (97) 99 06/24/17 20:00 69 06/24/17 19:00 98 Nasal Cannula 2.00 06/24/17 18:00 73 06/24/17 17:00 99.1 67 20 141/77 (98) 96 06/24/17 17:00 69 06/24/17 12:00 97.5 65 16 134/70 (91) 98 06/24/17 11:41 86 I/O 06/24/17 06/24/17 06/24/17 06/25/17 06/25/17 06/25/17 06:59 14:59 22:59 06:59 14:59 22:59 Intake Total 1290 ml 945 ml Output Total 1400 ml 300 ml 550 ml 750 ml Balance -1400 ml -300 ml 740 ml 195 ml Intake Oral 240 ml 240 ml IV Total 1050 ml 705 ml Output Urine Total 1400 ml 300 ml 550 ml 750 ml # Bowel Movements 0 0 Imaging Last Impressions Head CT 06/24/17 0000 Signed Impressions: Service Date/Time: Saturday, June 24, 2017 10:21 - CONCLUSION: Evolving stroke as above. Little change from yesterday Charlie De La Cruz MD Chest CT 06/24/17 0000 Signed Impressions: Service Date/Time: Saturday, June 24, 2017 19:40 - CONCLUSION: 1. The thoracic aorta is intact. 2. Suspected bibasilar areas of atelectasis or consolidation being worse on the left. 3. Small 0.5 cm pulmonary nodule at the left lower lung. This could be followed with a noncontrast CT examination in 6 months. Charlie Chand MD Abdomen/Pelvis CT 06/24/17 0000 Signed Impressions: Service Date/Time: Saturday, June 24, 2017 19:40 - CONCLUSION: 1. Thickening of the proximal sigmoid colon. This could be secondary to lack of distension and some degree of underlying hypertrophy. Underlying processes including some inflammation or a neoplasm cannot be excluded. The fat around the colon in this region appears normal. There are some scattered diverticula. 2. Hepatic steatosis. 3. 5 mm pulmonary nodule seen at the left lower lobe. This is a solitary pulmonary nodule more fully described on the CT of the chest report. Charlie Chand MD Head Magnetic Resonance Angiography 06/23/17 0000 Signed Impressions: Service Date/Time: Friday, June 23, 2017 08:24 - CONCLUSION: Normal examination. Flow is now seen within the right posterior cerebral artery peripheral distribution. Keron Wei Jr., MD Brain MRI 06/23/17 0000 Signed Impressions: Service Date/Time: Friday, June 23, 2017 08:24 - CONCLUSION: 1. Large area of infarction involving the left MCA territory with scattered areas of hemorrhage within the infarct bed. 2. Subacute infarct involving the right occipital lobe. 3. The multifocality would raise concern for an embolic event. Keron Wei Jr., MD Chest X-Ray 06/22/17 1641 Signed Impressions: Service Date/Time: Thursday, June 22, 2017 16:52 - CONCLUSION: No acute disease. Ronal Hong MD FACR Laboratory Test 06/25/17 03:47 06/25/17 05:00 Phenytoin (Dilantin) Level 10.0 MCG/ML Nasal Screen MRSA (PCR) MRSA NOT DETECTED Physical Examination HEENT: Normocephalic; atraumatic; no jaundice. CHEST: CTA CARDIAC: RRR. ABDOMEN: Soft, nondistended, nontender; no hepatosplenomegaly; bowel sounds are present in all four quadrants. EXTREMITIES: No clubbing, cyanosis, or edema. SKIN: Normal; no rash; no jaundice. [employer]: Aphasia, right weakness/hemiplegia (Roxanna Bergeron) Assessment and Plan Plan ASSESSMENT: - Abnormal imaging of sigmoid colon. CT thorax/abdomen/pelvis was done to evaluate for any metastatic disease that would make her hypercoagulable. CT scan of the thorax/abdomen/pelvis (06/24/17) and this revealed the thoracic aorta is intact, suspected bibasilar areas of atelectasis or consolidation being worse on the left, small 0.5 cm pulmonary nodule at the left lower lung. This could be followed with a noncontrast CT examination in 6 months; thickening of the proximal sigmoid colon. This could be secondary to lack of distention and some degree of underlying hypertrophy. Underlying processes including some inflammation or a neoplasm cannot be excluded. The fat around the colon in this region appears normal. There are some scattered diverticula, hepatic steatosis, 5 mm pulmonary nodule seen at the left lower lobe. This is a solitary pulmonary nodule more full described on the CT of the chest report. GI was consulted for further evaluation of thickened sigmoid colon. Pt does have recent hx of diarrhea and is still having liquid stools. She denies hx of diverticulitis, but does have noted diverticula on exam. Afebrile. She did lose 10 lbs over a month, but was following a low carb diet for weight loss. No decreased appetite, abdominal pain or tenderness , bleeding. No fhx of cancer. Never had colonoscopy. D/W Dr. Whitt, would hold off on endoscopic evaluation for 4-6 weeks. Will get stool studies, tumor markers, and if negative, plan for egd/colonoscopy in 4-6 weeks, when okay with neurology. - Recurrent CVA. Recent right medial occipital infarct on 06/17/17, now with acute ischemic left MCA stroke. Per neurology - Leukocytosis. Improved. - Hyperlipidemia, per attending. PLAN: - Heart healthy diet per ST recommendations - Stool for CDiff, C/S, O&P, Giardia - CEA, AFP, Ca19-9 - Monitor labs - ST/OT/PT - Per neurology, will need to hold on endoscopic evaluation for 4-6 weeks - Pt seen and examined by Dr. Pedroza and myself and this note is written on his behalf - (Roxanna Bergeron) Physician Comments Seen and examined, plan as above. With current active neurological disorders would hold off any interventional diagnostic procedure. Check tumor markers for now. Discussed the plan with the patient and family. Will follow up with you. (Elba Pedroza MD) Roxanna Bergeron Jun 25, 2017 11:31 Elba Pedroza MD Jun 25, 2017 15:50
--- NOTE | 2017-06-25 11:34 | HHI.PR ---
Subjective Remarks This is a pleasant 57 y/o Female with recent CVA 06/17/17 with chronic headaches was brought in to ER with Right Hemiparesis and unable to speak she was discharged Home 06/20/17 on Aspirin and Lipitor, she was found her on the floor, not moving and non verbal. He states since she was discharged she was feeling fine, no complaints at home, she was walking around and seemed normal. Patient is non verbal. 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 discussed with patient and her relatives in the room. 06/24: Seen in her bedroom in the presence of her Father Michael Sam, Hannah Slade, her brother and sister, they already discussed with Neurology specialist Doctor Jose Eduardo, he suspected Aortic Arch atheroembolic event CECI reviewed, probable post stroke Seizures started on Cerebyx yesterday, recommended to repeat CT brain and Chest and Abdomen, to look for aortic Arch rule out mass that could cause Hypercoagulable state, she will need inpatient rehab, no blood thinners, also contemplated ICU transfer. 06/25: Stable in her bedroom, already seen by Neurology specialist in am today doing better, she was able to move to the chair PT an OT to work with her during the afternoon, had small nodule on Chest area for follow up in six months as per guideline nodules below [address] brain with colon thickening asked for GI specialist consult. Objective Vital Signs Date Time Temp Pulse Resp B/P (MAP) Pulse Ox O2 Delivery O2 Flow Rate FiO2 06/25/17 10:00 59 06/25/17 08:00 95 Room Air 06/25/17 08:00 70 06/25/17 08:00 98.0 72 21 134/79 (97) 97 06/25/17 06:00 63 06/25/17 04:00 98.4 61 21 150/75 (100) 95 06/25/17 04:00 61 06/25/17 02:00 61 06/25/17 00:00 76 06/25/17 00:00 98.3 76 14 156/73 (100) 96 06/24/17 22:00 69 06/24/17 20:00 98.8 70 20 143/74 (97) 99 06/24/17 20:00 69 06/24/17 19:00 98 Nasal Cannula 2.00 06/24/17 18:00 73 06/24/17 17:00 99.1 67 20 141/77 (98) 96 06/24/17 17:00 69 06/24/17 12:00 97.5 65 16 134/70 (91) 98 06/24/17 11:41 86 I/O 06/24/17 06/24/17 06/24/17 06/25/17 06/25/17 06/25/17 06:59 14:59 22:59 06:59 14:59 22:59 Intake Total 1290 ml 945 ml Output Total 1400 ml 300 ml 550 ml 750 ml Balance -1400 ml -300 ml 740 ml 195 ml Intake Oral 240 ml 240 ml IV Total 1050 ml 705 ml Output Urine Total 1400 ml 300 ml 550 ml 750 ml # Bowel Movements 0 0 Result Diagram: 06/23/17 1545 06/23/17 1545 Imaging Last Impressions Head CT 06/24/17 0000 Signed Impressions: Service Date/Time: Saturday, June 24, 2017 10:21 - CONCLUSION: Evolving stroke as above. Little change from yesterday Charlie De La Cruz MD Chest CT 06/24/17 0000 Signed Impressions: Service Date/Time: Saturday, June 24, 2017 19:40 - CONCLUSION: 1. The thoracic aorta is intact. 2. Suspected bibasilar areas of atelectasis or consolidation being worse on the left. 3. Small 0.5 cm pulmonary nodule at the left lower lung. This could be followed with a noncontrast CT examination in 6 months. Charlie Chand MD Abdomen/Pelvis CT 06/24/17 0000 Signed Impressions: Service Date/Time: Saturday, June 24, 2017 19:40 - CONCLUSION: 1. Thickening of the proximal sigmoid colon. This could be secondary to lack of distension and some degree of underlying hypertrophy. Underlying processes including some inflammation or a neoplasm cannot be excluded. The fat around the colon in this region appears normal. There are some scattered diverticula. 2. Hepatic steatosis. 3. 5 mm pulmonary nodule seen at the left lower lobe. This is a solitary pulmonary nodule more fully described on the CT of the chest report. Charlie Chand MD Head Magnetic Resonance Angiography 06/23/17 0000 Signed Impressions: Service Date/Time: Friday, June 23, 2017 08:24 - CONCLUSION: Normal examination. Flow is now seen within the right posterior cerebral artery peripheral distribution. Keron Wei Jr., MD Brain MRI 06/23/17 0000 Signed Impressions: Service Date/Time: Friday, June 23, 2017 08:24 - CONCLUSION: 1. Large area of infarction involving the left MCA territory with scattered areas of hemorrhage within the infarct bed. 2. Subacute infarct involving the right occipital lobe. 3. The multifocality would raise concern for an embolic event. Keron Wei Jr., MD Chest X-Ray 06/22/17 1641 Signed Impressions: Service Date/Time: Thursday, June 22, 2017 16:52 - CONCLUSION: No acute disease. Ronal Hong MD FACR Procedures None Other Results Laboratory Tests Test 06/22/17 16:54 06/23/17 06:08 06/23/17 15:45 06/23/17 21:41 Prothrombin Time 10.8 SEC Prothromb Time International Ratio 1.0 RATIO Activated Partial Thromboplast Time 24.7 SEC Urine Color YELLOW Urine Turbidity HAZY Urine pH 5.0 Urine Specific [place] 1.015 Urine Protein NEG mg/dL Urine Glucose (UA) NEG mg/dL Urine Ketones NEG mg/dL Urine Occult Blood NEG Urine Nitrite NEG Urine Bilirubin NEG Urine Urobilinogen LESS THAN 2.0 MG/DL Urine Leukocyte Esterase NEG Urine RBC LESS THAN 1 /hpf Urine WBC 1 /hpf Urine Squamous Epithelial Cells 1 /hpf Urine Mucus FEW /lpf Microscopic Urinalysis Comment CULT NOT INDICATED White Blood Count 10.3 TH/MM3 Red Blood Count 4.78 MIL/MM3 Hemoglobin 14.6 GM/DL Hematocrit 43.6 % Mean Corpuscular Volume 91.3 FL Mean Corpuscular Hemoglobin 30.6 PG Mean Corpuscular Hemoglobin Concent 33.6 % Red Cell Distribution Width 14.1 % Platelet Count 237 TH/MM3 Mean Platelet Volume 10.0 FL Neutrophils (%) (Auto) 84.3 % Lymphocytes (%) (Auto) 9.5 % Monocytes (%) (Auto) 5.9 % Eosinophils (%) (Auto) 0.1 % Basophils (%) (Auto) 0.2 % Neutrophils # (Auto) 8.7 TH/MM3 Lymphocytes # (Auto) 1.0 TH/MM3 Monocytes # (Auto) 0.6 TH/MM3 Eosinophils # (Auto) 0.0 TH/MM3 Basophils # (Auto) 0.0 TH/MM3 CBC Comment DIFF FINAL Differential Comment Blood Urea Nitrogen 12 MG/DL Creatinine 0.66 MG/DL Random Glucose 91 MG/DL Total Protein 7.3 GM/DL Albumin 3.6 GM/DL Calcium Level 8.6 MG/DL Phosphorus Level 1.9 MG/DL Magnesium Level 2.1 MG/DL Alkaline Phosphatase 94 U/L Aspartate Amino Transf (AST/SGOT) 29 U/L Alanine Aminotransferase (ALT/SGPT) 34 U/L Total Bilirubin 0.6 MG/DL Sodium Level 143 MEQ/L Potassium Level 3.5 MEQ/L Chloride Level 110 MEQ/L Carbon Dioxide Level 25.1 MEQ/L Anion Gap 8 MEQ/L Estimat Glomerular Filtration Rate 93 ML/MIN Hemoglobin A1c 5.8 % Triglycerides Level 91 MG/DL Cholesterol Level 168 MG/DL LDL Cholesterol 106 MG/DL HDL Cholesterol 44.2 MG/DL Cholesterol/HDL Ratio 3.80 RATIO Free Thyroxine 1.14 NG/DL Thyroid Stimulating Hormone 3rd Gen 1.380 uIU/ML Anti-Nuclear Antibody Screen NEG Rapid Plasma Reagin NON-REACTIVE Total Creatine Kinase 119 U/L Troponin I 0.07 NG/ML Test 06/25/17 03:47 06/25/17 05:00 Phenytoin (Dilantin) Level 10.0 MCG/ML Nasal Screen MRSA (PCR) MRSA NOT DETECTED Objective Remarks GENERAL: This is a well-nourished, non verbal patient. SKIN: No rashes, ecchymoses or lesions. Cool and dry. HEAD: Atraumatic. Normocephalic. EYES: Pupils equal round and slight reaction. ENT: Nose without bleeding, purulent drainage or septal hematoma. Airway patent. NECK: Trachea midline. No JVD or lymphadenopathy. Supple, nontender, no meningeal signs. CARDIOVASCULAR: Regular rate and rhythm without murmurs, gallops, or rubs. RESPIRATORY: Clear to auscultation. Breath sounds equal bilaterally. No wheezes , rales, or rhonchi. GASTROINTESTINAL: Abdomen soft, non-tender, nondistended. MUSCULOSKELETAL: Extremities without clubbing, cyanosis, or edema. No joint tenderness, effusion, or edema noted. NEUROLOGICAL: Awake and non verbal. Right Hemiplegia. Medications and IVs Current Medications Medications (Trade) Dose Ordered Sig/Doreen Route Start Time Stop Time Status Last Admin (NS Flush) 2 ml BID IV FLUSH 06/22/17 21:00 06/25/17 09:00 (NS Flush) 2 ml UNSCH PRN IV FLUSH 06/22/17 18:45 (NovoLOG SUPPLEMENTAL SCALE) 1 ACHS SQ 06/22/17 21:00 (D50w (Vial) Inj) 50 ml UNSCH PRN IV PUSH 06/22/17 18:45 (Glucagon Inj) 1 mg UNSCH PRN OTHER 06/22/17 18:45 (Tylenol) 650 mg Q4H PRN PO 06/22/17 18:45 (Zofran Inj) 4 mg Q6H PRN IVP 06/22/17 18:45 (Compazine Supp) 25 mg Q12H PRN RECTAL 06/22/17 18:45 (Tylenol) 650 mg Q6H PRN PO 06/22/17 18:45 (Percocet 5-325 Mg) 1 tab Q6H PRN PO 06/22/17 18:45 (Percocet 10-325 Mg) 1 tab Q6H PRN PO 06/22/17 18:45 (Morphine Inj) 2 mg Q3H PRN IV 06/22/17 18:45 (Morphine Inj) 4 mg Q3H PRN IV 06/22/17 18:45 (Narcan Inj) 0.4 mg UNSCH PRN IV 06/22/17 18:45 (Pari-Colace) 1 tab BID PO 06/22/17 21:00 (Milk Of Magnesia Liq) 30 ml Q12H PRN PO 06/22/17 18:45 (Senokot) 17.2 mg Q12H PRN PO 06/22/17 18:45 (Dulcolax Supp) 10 mg DAILY PRN RECTAL 06/22/17 18:45 (Lactulose Liq) 30 ml DAILY PRN PO 06/22/17 18:45 Sodium Chloride 1,000 ml @ 84 mls/hr [id number] IV 06/22/17 22:45 06/25/17 09:40 (Cerebyx Inj) 200 mgpe Q12H IV 06/24/17 00:00 06/25/17 11:18 A/P Assessment and Plan 57 y/o female with a history of a recent CVA 06/17/2017 and chronic headaches was brought to the ED with right hemiparesis and unable to speak. She was discharged home on Thursday and was given aspirin and Lipitor. Per the patient' s she was last seen normal at 8am this morning when he left for work, he states several people tried to call her but she did not answer, when he returned from work he found her on the floor, not moving and non verbal. Left Infarction involving The left MCA territory with scattered areas of Hemorrhage within the infarct bed, Subacute infarct involving the right occipital lobe, The Multifocality call attention about Embolic Event. 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 new CT brain no change from yesterday Stable improving condition, today transfer to the chair by herself , will work with Physical Therapy and Occupational therapy later today, found Lung Nodule less than 6 mm agree with follow up in six months, also has Colon thickening asked for GI specialist consult. HLD, chronic -High intensity Statin, LDL 108 need to be below 70. Leukocytosis, likely reactive, Improved, UA negative for infection. Severe Tobacco dependence strongly recommended to stop smoking. started on Bronchodilator, Mucolytic and incentive spirometry. Medical Non compliance the patient continue smoking even having this pathology. DVT prophylaxis: SCDs, hold chemical for now for possible hemorrhage Discussed Condition With Patient, her relatives, Nurse. all questions answered to the best of my abilities. Discharge Planning Once cleared by Neurology specialist. Michael Brooks MD Jun 25, 2017 11:34
[2017-06-26] VITALS (14 sets, daily range): BP systolic 112–159; BP diastolic 57–77; PULSE 58–73; RESP 16–25; TEMP 97.7–98.4; O2SAT 93–98
[2017-06-26 05:48] LABS: BICARBONATE 27.2 MEQ/L (21.0-32.0); MAGNESIUM 2.1 MG/DL (1.5-2.5); POTASSIUM 3.1 MEQ/L (3.5-5.1)
[2017-06-26] MEDS ORDERED: POTASSIUM CHLORIDE 20 MEQ CONTROLLED RELEASE TAB PO ONE (06:30)
--- NOTE | 2017-06-26 08:08 | HHI.PR ---
Subjective Remarks This is a pleasant 57 y/o Female with recent CVA 06/17/17 with chronic headaches was brought in to ER with Right Hemiparesis and unable to speak she was discharged Home 06/20/17 on Aspirin and Lipitor, she was found her on the floor, not moving and non verbal. He states since she was discharged she was feeling fine, no complaints at home, she was walking around and seemed normal. Patient is non verbal. 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 discussed with patient and her relatives in the room. 06/24: Seen in her bedroom in the presence of her Father Michael Sam, Hannah Slade, her brother and sister, they already discussed with Neurology specialist Doctor Jose Eduardo, he suspected Aortic Arch atheroembolic event CECI reviewed, probable post stroke Seizures started on Cerebyx yesterday, recommended to repeat CT brain and Chest and Abdomen, to look for aortic Arch rule out mass that could cause Hypercoagulable state, she will need inpatient rehab, no blood thinners, also contemplated ICU transfer. 06/25: Stable in her bedroom, already seen by Neurology specialist in am today doing better, she was able to move to the chair PT an OT to work with her during the afternoon, had small nodule on Chest area for follow up in six months as per guideline nodules below [address] brain with colon thickening asked for GI specialist consult. 06/26: Seen by GI specialist recommended due to patient without Colonoscopy to hold for this procedure for 4 to 6 weeks, tumor markers asked, EGD and Colonoscopy in 4 to 6 weeks, asked for Stool for C Diff, C/S, Giardia, LINUS, AFP , Ca19-9, seen in her bedroom, discussed with her Mr. Harinder Hills, the patient does not need the March cath removed, also will discontinue IV fluids she is eating and drinking well. was unable to take her Potassium chloride pill switch to liquid form and follow Potassium level at 1400 hours today. Objective Vital Signs Date Time Temp Pulse Resp B/P (MAP) Pulse Ox O2 Delivery O2 Flow Rate FiO2 06/26/17 07:29 95 21 06/26/17 06:00 58 06/26/17 04:00 98.4 62 16 159/77 (104) 95 06/26/17 04:00 62 06/26/17 02:00 60 06/26/17 00:00 64 06/26/17 00:00 98.4 64 24 141/70 (93) 95 06/25/17 22:00 64 06/25/17 20:00 98.2 66 17 137/66 (89) 95 06/25/17 20:00 66 06/25/17 19:00 96 Room Air 06/25/17 18:00 66 06/25/17 16:00 98.6 63 30 145/70 (95) 96 06/25/17 16:00 63 06/25/17 14:00 75 06/25/17 12:00 98.7 60 20 128/67 (87) 95 06/25/17 12:00 60 06/25/17 10:00 59 I/O 06/25/17 06/25/17 06/25/17 06/26/17 06/26/17 06/26/17 07:00 15:00 23:00 07:00 15:00 23:00 Intake Total 945 ml 440 ml 770 ml Output Total 750 ml 1100 ml 500 ml Balance 195 ml -660 ml 270 ml Intake Oral 240 ml 440 ml 0 ml IV Total 705 ml 770 ml Output Urine Total 750 ml 1100 ml 500 ml # Bowel Movements 0 0 0 Result Diagram: 06/23/17 1545 06/26/17 0434 Imaging Last Impressions Head CT 06/24/17 0000 Signed Impressions: Service Date/Time: Saturday, June 24, 2017 10:21 - CONCLUSION: Evolving stroke as above. Little change from yesterday Charlie De La Cruz MD Chest CT 06/24/17 0000 Signed Impressions: Service Date/Time: Saturday, June 24, 2017 19:40 - CONCLUSION: 1. The thoracic aorta is intact. 2. Suspected bibasilar areas of atelectasis or consolidation being worse on the left. 3. Small 0.5 cm pulmonary nodule at the left lower lung. This could be followed with a noncontrast CT examination in 6 months. Charlie Chand MD Abdomen/Pelvis CT 06/24/17 0000 Signed Impressions: Service Date/Time: Saturday, June 24, 2017 19:40 - CONCLUSION: 1. Thickening of the proximal sigmoid colon. This could be secondary to lack of distension and some degree of underlying hypertrophy. Underlying processes including some inflammation or a neoplasm cannot be excluded. The fat around the colon in this region appears normal. There are some scattered diverticula. 2. Hepatic steatosis. 3. 5 mm pulmonary nodule seen at the left lower lobe. This is a solitary pulmonary nodule more fully described on the CT of the chest report. Charlie Chand MD Head Magnetic Resonance Angiography 06/23/17 0000 Signed Impressions: Service Date/Time: Friday, June 23, 2017 08:24 - CONCLUSION: Normal examination. Flow is now seen within the right posterior cerebral artery peripheral distribution. Keron Wei Jr., MD Brain MRI 06/23/17 0000 Signed Impressions: Service Date/Time: Friday, June 23, 2017 08:24 - CONCLUSION: 1. Large area of infarction involving the left MCA territory with scattered areas of hemorrhage within the infarct bed. 2. Subacute infarct involving the right occipital lobe. 3. The multifocality would raise concern for an embolic event. Keron Wei Jr., MD Chest X-Ray 06/22/17 1641 Signed Impressions: Service Date/Time: Thursday, June 22, 2017 16:52 - CONCLUSION: No acute disease. Ronal Hong MD FACR Procedures None Other Results Laboratory Tests Test 06/22/17 16:54 06/23/17 06:08 06/23/17 15:45 06/23/17 21:41 Prothrombin Time 10.8 SEC Prothromb Time International Ratio 1.0 RATIO Activated Partial Thromboplast Time 24.7 SEC Urine Color YELLOW Urine Turbidity HAZY Urine pH 5.0 Urine Specific [place] 1.015 Urine Protein NEG mg/dL Urine Glucose (UA) NEG mg/dL Urine Ketones NEG mg/dL Urine Occult Blood NEG Urine Nitrite NEG Urine Bilirubin NEG Urine Urobilinogen LESS THAN 2.0 MG/DL Urine Leukocyte Esterase NEG Urine RBC LESS THAN 1 /hpf Urine WBC 1 /hpf Urine Squamous Epithelial Cells 1 /hpf Urine Mucus FEW /lpf Microscopic Urinalysis Comment CULT NOT INDICATED White Blood Count 10.3 TH/MM3 Red Blood Count 4.78 MIL/MM3 Hemoglobin 14.6 GM/DL Hematocrit 43.6 % Mean Corpuscular Volume 91.3 FL Mean Corpuscular Hemoglobin 30.6 PG Mean Corpuscular Hemoglobin Concent 33.6 % Red Cell Distribution Width 14.1 % Platelet Count 237 TH/MM3 Mean Platelet Volume 10.0 FL Neutrophils (%) (Auto) 84.3 % Lymphocytes (%) (Auto) 9.5 % Monocytes (%) (Auto) 5.9 % Eosinophils (%) (Auto) 0.1 % Basophils (%) (Auto) 0.2 % Neutrophils # (Auto) 8.7 TH/MM3 Lymphocytes # (Auto) 1.0 TH/MM3 Monocytes # (Auto) 0.6 TH/MM3 Eosinophils # (Auto) 0.0 TH/MM3 Basophils # (Auto) 0.0 TH/MM3 CBC Comment DIFF FINAL Differential Comment Hemoglobin A1c 5.8 % Blood Urea Nitrogen 12 MG/DL Creatinine 0.66 MG/DL Random Glucose 91 MG/DL Total Protein 7.3 GM/DL Albumin 3.6 GM/DL Calcium Level 8.6 MG/DL Phosphorus Level 1.9 MG/DL Magnesium Level 2.1 MG/DL Alkaline Phosphatase 94 U/L Aspartate Amino Transf (AST/SGOT) 29 U/L Alanine Aminotransferase (ALT/SGPT) 34 U/L Total Bilirubin 0.6 MG/DL Sodium Level 143 MEQ/L Potassium Level 3.5 MEQ/L Chloride Level 110 MEQ/L Carbon Dioxide Level 25.1 MEQ/L Triglycerides Level 91 MG/DL Cholesterol Level 168 MG/DL LDL Cholesterol 106 MG/DL HDL Cholesterol 44.2 MG/DL Cholesterol/HDL Ratio 3.80 RATIO Free Thyroxine 1.14 NG/DL Thyroid Stimulating Hormone 3rd Gen 1.380 uIU/ML Anti-Nuclear Antibody Screen NEG Rapid Plasma Reagin NON-REACTIVE Total Creatine Kinase 119 U/L Troponin I 0.07 NG/ML Test 06/25/17 05:00 06/25/17 21:37 06/26/17 04:34 Nasal Screen MRSA (PCR) MRSA NOT DETECTED Tumor Marker Alpha Fetoprotein 3.0 NG/ML Carcinoembryonic Antigen 2.2 NG/ML CA 19-9 Antigen 3.9 U/ML Blood Urea Nitrogen 11 MG/DL Creatinine 0.54 MG/DL Random Glucose 81 MG/DL Calcium Level 8.4 MG/DL Phosphorus Level 2.7 MG/DL Magnesium Level 2.1 MG/DL Sodium Level 141 MEQ/L Potassium Level 3.1 MEQ/L Chloride Level 106 MEQ/L Carbon Dioxide Level 27.2 MEQ/L Anion Gap 8 MEQ/L Estimat Glomerular Filtration Rate 117 ML/MIN Phenytoin (Dilantin) Level 11.9 MCG/ML Objective Remarks GENERAL: This is a well-nourished, non verbal patient. SKIN: No rashes, ecchymoses or lesions. Cool and dry. HEAD: Atraumatic. Normocephalic. EYES: Pupils equal round and slight reaction. ENT: Nose without bleeding, purulent drainage or septal hematoma. Airway patent. NECK: Trachea midline. No JVD or lymphadenopathy. Supple, nontender, no meningeal signs. CARDIOVASCULAR: Regular rate and rhythm without murmurs, gallops, or rubs. RESPIRATORY: Clear to auscultation. Breath sounds equal bilaterally. No wheezes , rales, or rhonchi. GASTROINTESTINAL: Abdomen soft, non-tender, nondistended. MUSCULOSKELETAL: Extremities without clubbing, cyanosis, or edema. No joint tenderness, effusion, or edema noted. NEUROLOGICAL: Awake and non verbal. Right Hemiplegia. Medications and IVs Current Medications Medications (Trade) Dose Ordered Sig/Doreen Route Start Time Stop Time Status Last Admin (NS Flush) 2 ml BID IV FLUSH 06/22/17 21:00 06/25/17 09:00 (NS Flush) 2 ml UNSCH PRN IV FLUSH 06/22/17 18:45 (NovoLOG SUPPLEMENTAL SCALE) 1 ACHS SQ 06/22/17 21:00 06/25/17 16:03 (D50w (Vial) Inj) 50 ml UNSCH PRN IV PUSH 06/22/17 18:45 (Glucagon Inj) 1 mg UNSCH PRN OTHER 06/22/17 18:45 (Tylenol) 650 mg Q4H PRN PO 06/22/17 18:45 (Zofran Inj) 4 mg Q6H PRN IVP 06/22/17 18:45 (Compazine Supp) 25 mg Q12H PRN RECTAL 06/22/17 18:45 (Tylenol) 650 mg Q6H PRN PO 06/22/17 18:45 (Percocet 5-325 Mg) 1 tab Q6H PRN PO 06/22/17 18:45 (Percocet 10-325 Mg) 1 tab Q6H PRN PO 06/22/17 18:45 (Morphine Inj) 2 mg Q3H PRN IV 06/22/17 18:45 (Morphine Inj) 4 mg Q3H PRN IV 06/22/17 18:45 (Narcan Inj) 0.4 mg UNSCH PRN IV 06/22/17 18:45 (Pari-Colace) 1 tab BID PO 06/22/17 21:00 (Milk Of Magnesia Liq) 30 ml Q12H PRN PO 06/22/17 18:45 (Senokot) 17.2 mg Q12H PRN PO 06/22/17 18:45 (Dulcolax Supp) 10 mg DAILY PRN RECTAL 06/22/17 18:45 (Lactulose Liq) 30 ml DAILY PRN PO 06/22/17 18:45 Sodium Chloride 1,000 ml @ 84 mls/hr [id number] IV 06/22/17 22:45 06/25/17 22:15 (Cerebyx Inj) 200 mgpe Q12H IV 06/24/17 00:00 06/25/17 23:53 A/P Assessment and Plan 57 y/o female with a history of a recent CVA 06/17/2017 and chronic headaches was brought to the ED with right hemiparesis and unable to speak. She was discharged home on Thursday and was given aspirin and Lipitor. Per the patient' s she was last seen normal at 8am this morning when he left for work, he states several people tried to call her but she did not answer, when he returned from work he found her on the floor, not moving and non verbal. Left Infarction involving The left MCA territory with scattered areas of Hemorrhage within the infarct bed, Subacute infarct involving the right occipital lobe, The Multifocality call attention about Embolic Event. 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 new CT brain no change from yesterday Stable improving condition, today transfer to the chair by herself , will work with Physical Therapy and Occupational therapy later today, found Lung Nodule less than 6 mm agree with follow up in six months, also has Colon thickening asked for GI specialist consult. Seen by GI specialist recommended due to patient without Colonoscopy to hold for this procedure for 4 to 6 weeks, tumor markers asked, EGD and Colonoscopy in 4 to 6 weeks, asked for Stool for C Diff, C /S, Giardia, LINUS, AFP, Ca19-9. HLD, chronic -High intensity Statin, LDL 108 need to be below 70. Leukocytosis, likely reactive, Improved, UA negative for infection. Severe Tobacco dependence strongly recommended to stop smoking. started on Bronchodilator, Mucolytic and incentive spirometry. Medical Non compliance the patient continue smoking even having this pathology. Hypokalemia given replacement and following at 1400 hours today. DVT prophylaxis: SCDs, hold chemical for now for possible hemorrhage Discussed Condition With Patient, her Mr. Harinder Hills and Nurse Miss Ren. all questions answered to the best of my abilities. Remove March cath Discontinue IV fluids Switch Potassium pills to liquid form. Discharge Planning Already Set for CIR starting next week on Thursday or Thursday. Michael Brooks MD Jun 26, 2017 08:08
[2017-06-26] MEDS ORDERED: POTASSIUM CHLORIDE 25 MEQ EFFERVESCENT TAB PO ONE ×2 (08:45→11:00)
[2017-06-26] MEDS: DOCUSATE SODIUM 50 MG/SENNA 8.6 MG TAB PO SCH ×2 (09:00→20:25)
[2017-06-26] MEDS: SODIUM CHLORIDE 0.9% FLUSH 5 ML FLUSH IV FLUSH SCH ×2 (09:00→20:22)
[2017-06-26] MEDS: INSULIN ASPART SUPPLEMENTAL SCALE SQ SCH ×3 (11:00→20:25)
[2017-06-26] MEDS ORDERED: MAGNESIUM CITRATE SOLN 300 ML BTL PO ONE (12:00)
[2017-06-26] MEDS: FOSPHENYTOIN SODIUM 100 MG PE/2 ML VIAL IV SCH (12:11)
--- NOTE | 2017-06-26 12:43 | HHI.GIFU ---
Subjective Remarks Resting in bed. Alert, oriented, follows commands. No abdominal pain. No diarrhea. Family at bedside. Objective Vitals I&O Vital Signs Date Time Temp Pulse Resp B/P (MAP) Pulse Ox O2 Delivery O2 Flow Rate FiO2 06/26/17 10:00 70 06/26/17 08:00 95 Room Air 06/26/17 08:00 66 06/26/17 08:00 98.0 66 18 120/60 (80) 95 06/26/17 07:29 95 21 06/26/17 06:00 58 06/26/17 04:00 98.4 62 16 159/77 (104) 95 06/26/17 04:00 62 06/26/17 02:00 60 06/26/17 00:00 64 06/26/17 00:00 98.4 64 24 141/70 (93) 95 06/25/17 22:00 64 06/25/17 20:00 98.2 66 17 137/66 (89) 95 06/25/17 20:00 66 06/25/17 19:00 96 Room Air 06/25/17 18:00 66 06/25/17 16:00 98.6 63 30 145/70 (95) 96 06/25/17 16:00 63 06/25/17 14:00 75 I/O 06/25/17 06/25/17 06/25/17 06/26/17 06/26/17 06/26/17 07:00 15:00 23:00 07:00 15:00 23:00 Intake Total 945 ml 440 ml 770 ml Output Total 750 ml 1100 ml 500 ml Balance 195 ml -660 ml 270 ml Intake Oral 240 ml 440 ml 0 ml IV Total 705 ml 770 ml Output Urine Total 750 ml 1100 ml 500 ml # Bowel Movements 0 0 0 Laboratory Laboratory Tests Test 06/25/17 21:37 06/26/17 04:34 Tumor Marker Alpha Fetoprotein 3.0 Carcinoembryonic Antigen 2.2 CA 19-9 Antigen 3.9 Blood Urea Nitrogen 11 Creatinine 0.54 Random Glucose 81 Calcium Level 8.4 Phosphorus Level 2.7 Magnesium Level 2.1 Sodium Level 141 Potassium Level 3.1 Chloride Level 106 Carbon Dioxide Level 27.2 Anion Gap 8 Estimat Glomerular Filtration Rate 117 Phenytoin (Dilantin) Level 11.9 Imaging Last Impressions Head CT 06/24/17 Signed Impressions: Service Date/Time: Saturday, June 24, 2017 10:21 - CONCLUSION: Evolving stroke as above. Little change from yesterday Charlie De La Cruz MD Chest CT 06/24/17 Signed Impressions: Service Date/Time: Saturday, June 24, 2017 19:40 - CONCLUSION: 1. The thoracic aorta is intact. 2. Suspected bibasilar areas of atelectasis or consolidation being worse on the left. 3. Small 0.5 cm pulmonary nodule at the left lower lung. This could be followed with a noncontrast CT examination in 6 months. Charlie Chand MD Abdomen/Pelvis CT 06/24/17 Signed Impressions: Service Date/Time: Saturday, June 24, 2017 19:40 - CONCLUSION: 1. Thickening of the proximal sigmoid colon. This could be secondary to lack of distension and some degree of underlying hypertrophy. Underlying processes including some inflammation or a neoplasm cannot be excluded. The fat around the colon in this region appears normal. There are some scattered diverticula. 2. Hepatic steatosis. 3. 5 mm pulmonary nodule seen at the left lower lobe. This is a solitary pulmonary nodule more fully described on the CT of the chest report. Charlie Chand MD Head Magnetic Resonance Angiography 06/23/17 Signed Impressions: Service Date/Time: Friday, June 23, 2017 08:24 - CONCLUSION: Normal examination. Flow is now seen within the right posterior cerebral artery peripheral distribution. Keron Wei Jr., MD Brain MRI 06/23/17 Signed Impressions: Service Date/Time: Friday, June 23, 2017 08:24 - CONCLUSION: 1. Large area of infarction involving the left MCA territory with scattered areas of hemorrhage within the infarct bed. 2. Subacute infarct involving the right occipital lobe. 3. The multifocality would raise concern for an embolic event. Keron Wei Jr., MD Chest X-Ray 06/22/17 1641 Signed Impressions: Service Date/Time: Thursday, June 22, 2017 16:52 - CONCLUSION: No acute disease. Ronal Hong MD FACR Physical Exam HEENT: Normocephalic; atraumatic; no jaundice. CHEST: CTA CARDIAC: RRR. ABDOMEN: Soft, nondistended, nontender; no hepatosplenomegaly; bowel sounds are present in all four quadrants. EXTREMITIES: No clubbing, cyanosis, or edema. SKIN: Normal; no rash; no jaundice. 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 CT thorax/abdomen/pelvis was done to evaluate for any metastatic disease that would make her hypercoagulable. CT scan of the thorax/abdomen/pelvis (06/24/17) and this revealed the thoracic aorta is intact, suspected bibasilar areas of atelectasis or consolidation being worse on the left, small 0.5 cm pulmonary nodule at the left lower lung. This could be followed with a noncontrast CT examination in 6 months; thickening of the proximal sigmoid colon. This could be secondary to lack of distention and some degree of underlying hypertrophy. Underlying processes including some inflammation or a neoplasm cannot be excluded. The fat around the colon in this region appears normal. There are some scattered diverticula, hepatic steatosis, 5 mm pulmonary nodule seen at the left lower lobe. This is a solitary pulmonary nodule more full described on the CT of the chest report. GI was consulted for further evaluation of thickened sigmoid colon. Pt does have recent hx of diarrhea and is still having liquid stools. She denies hx of diverticulitis, but does have noted diverticula on exam. Afebrile. She did lose 10 lbs over a month, but was following a low carb diet for weight loss. No decreased appetite, abdominal pain or tenderness , bleeding. No fhx of cancer. Never had colonoscopy. D/W Dr. Whitt, would hold off on endoscopic evaluation for 4-6 weeks. AFP 3.0, CEA 2.2, Ca19-9 3.9. Stool studies ordered, but pt has not had any diarrhea. No abdominal pain. Plan for egd/ colonoscopy in 4-6 weeks when okay with neurology. - Recurrent CVA. Recent right medial occipital infarct on 06/17/17, now with acute ischemic left MCA stroke. Per neurology - Leukocytosis. Improved. - Hyperlipidemia, per attending. PLAN: - Heart healthy diet per ST recommendations - Stool for CDiff, C/S, O&P, Giardia if diarrhea - Monitor labs - ST/OT/PT - Per neurology, will need to hold on endoscopic evaluation for 4-6 weeks - Further recommendations to follow based on results of above - Pt seen and examined by Dr. Billy and myself and this note is written on his behalf Roxanna Bergeron Jun 26, 2017 12:42
[2017-06-26] MEDS ORDERED: MAGNESIUM CITRATE SOLN 300 ML BTL PO SCH (18:00)
[2017-06-26] MEDS ORDERED: BISACODYL EC 5 MG TABEC PO SCH (18:00)
[2017-06-26] MEDS ORDERED: BISACODYL EC 5 MG TABEC PO ONE (21:00)
--- NOTE | 2017-06-26 22:06 | MB ---
cc: HARDEEP CARLISLE MD, ZAFAR MD DATE OF CONSULTATION 06/26/17 DATE OF : 1960 REASON FOR CONSULTATION Patient with recurrent strokes (both ischemic and hemorrhagic). CHIEF COMPLAINT Ms. Hills has significant expressive aphasia. She is unable to provide a detailed history. The history is obtained entirely from her who is at bedside, a female relative of hers as well as from the electronic medical records. HISTORY OF PRESENT ILLNESS Ms. Hills i a very pleasant 57-year-old female. She is a smoker and has smoked about a half a pack a day since she was a teenager. Ms. Hills, per her , was in her usual excellent state of health up until approximately two weeks ago when she developed acute onset nausea and vomiting. Her reports the nausea and vomiting got to the point where an emergency department visit was required. The patient spent the night at [facility] emergency department and received intravenous fluids and anti-emetic therapy. She was discharged home the following Thursday and felt well. The patient's , however, did notice the patient to be somewhat groggy and describes her as sleeping most of Thursday and Thursday. On Thursday morning, the patient woke up to notice her vision to be impaired and he specifically points out that the patient was unable to see in the periphery over her temporal areas on both right and left eye. They reported these symptoms to their assistance coordinator to recommend that the patient go to the emergency department without delay. The same day, the patient was seen in the emergency department at [facility] and underwent imaging studies of the brain; an MRI of the brain was performed on 06/17/2017. The patient was found to have acute/subacute infarct involving the medial right occipital lobe without mass effect or hemorrhage. She underwent a cardiac workup which included a transesophageal echocardiogram as well as a transthoracic echocardiogram. The echocardiogram dated 06/19 indicated LVEF of 50-55%. There was no evidence of thrombus formation and no arterial level shunt was identified. The patient was discharged home on aspirin 325 mg once daily and oral Lipitor. Two days after discharge, her returned home on 06/22 and found her laying on the floor unconscious. She was difficult to arouse and, when she was aroused, she had difficulty speaking and moving her right upper extremity and right lower extremity. She was brought back into the emergency department where she underwent repeat imaging studies of the brain; the MRI of the brain dated 06/23 revealed new findings as compared to previous with a large area of infarction involving the left MCA territory with scattered areas of hemorrhage within the infarct bed. Subacute infarct involving the right occipital lobe was also identified. The hematology service has been involved in this case to rule out a primary hypercoagulable state or an acquired hypercoagulable state. Imaging studies including CT chest and pelvis indicate 0.5 cm left subpleural pulmonary nodule in the lower lobe and a CT scan of the abdomen and pelvis indicated possible thickening of the proximal sigmoid colon. PAST MEDICAL HISTORY 1. Tobacco abuse. 2. Previous history of ischemic stroke. PAST SURGICAL HISTORY Tubal ligation. GYNECOLOGIC HISTORY 2, para 2. FAMILY HISTORY Father is living. He is in his 90s. He has had coronary artery disease. Mother is . She of intracranial hemorrhage. Brother reportedly has a history of hyperhomocysteinemia. 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 She is a smoker. She lives at home with her . She has two children, ages 20 and 22. ALLERGIES PENICILLIN SULFA MEDICATIONS Current inpatient: 1. Tylenol 650 mg p.o. q.4 h as needed for fever. 2. Dulcolax suppositories 10 mg per rectum for severe constipation. 3. Fosphenytoin 200 mg IV q.12 h. 4. Lactulose 30 mL daily. 5. Insulin sliding scale per protocol. 6. Magnesium hydroxide 30 mL p.o. q. 12. 7. Morphine 4 mg IV q.3 h as needed for pain. 8. Oxycodone 5/325 mg 1 tablet every 6 hours as needed for pain. 9. Potassium and magnesium replacement protocol. REVIEW OF SYSTEMS Difficult to obtain given the patient's expressive aphasia. Please review the HPI as related to me by her . PHYSICAL EXAMINATION VITAL SIGNS: Temperature 98.3 degrees Fahrenheit, heart rate 72 beats a minute, blood pressure 116/75, O2 sats 95% on room air. GENERAL APPEARANCE: Ms. Hilsl is a middle-aged female. She is of medium height and moderate build, appears to be in no acute distress and has a pleasant disposition. HEENT: Head atraumatic, normocephalic. Conjunctivae are not pale, sclerae are anicteric, EOMI, PERRLA, oral exam no pharyngeal erythema. NECK: No palpable cervical or supraclavicular adenopathy. There are no carotid bruits heard. CARDIOVASCULAR: Regular rate and rhythm, S1-S2. No obvious murmurs, rubs or gallops. RESPIRATORY: Good air movement bilaterally, no added breath sounds. Good inspiratory effort. ABDOMEN: Thin belly, soft and nontender, nondistended, no palpable organ enlargement. EXTREMITIES: She has pneumatic compression devices on. NEUROLOGIC: She has expressive aphasia. She nods understanding to various questions. She does not, however, follow instructions such as hand grasp or moving her feet when I ask her to. MUSCULOSKELETAL: Decreased muscle mass, tone and strength. She has pronounced dysarthria and weakness of the right upper and lower extremity. The left upper and lower extremity I would estimate has 4/5 strength. SKIN: Without abnormalities identified. LABORATORY FINDINGS Blood work dated 06/23/2017: WBC count 10.3, hemoglobin 14.6 gm/dl, hematocrit 43.6%, platelet count 237, absolute neutrophil count one. Chemistries: Sodium 141, potassium 3.1, chloride 106, bicarb 27.2, BUN 11, creatinine 0.54, EGFR 117, random glucose 81, magnesium 2.1. Coags Dated 06/22/2017: INR one, PTT 24.7, PT 10.8. Prothrombotic workup - lupus anticoagulant not detected dated 06/19, protein C activity normal at 137, protein S activity normal at 127. Factor V Leiden mutation negative. Antiphospholipid antibodies were negative. SHILOH screen was negative. RPR is negative. IMAGING STUDIES MRI of the brain dated 06/23/2017 indicates a large area of infarction involving the left MCA territory with scattered areas of hemorrhage within the infarct bed. Subacute infarct involving the right occipital lobe. Ultrasound of the carotid arteries dated 06/17/2017 - Mild plaque in the carotid arteries bilaterally. No hemodynamic significant stenosis. Vertebral artery flow is antegrade bilaterally. ASSESSMENT Ms. Hills is a 57-year-old female with a longstanding history of tobaccoism. She initially developed symptoms of loss of peripheral vision/temporal visual field on both eyes on 06/17/2017. Imaging studies indicated ischemic changes involving the right occipital lobe. She was initiated on oral antiplatelet therapy with aspirin 325 mg daily along with Lipitor. Shortly thereafter, she developed additional neurologic deficits. specifically difficulty speaking as well as weakness of the right upper and lower extremity. She was brought back into the hospital and was noted to have a large area of infarction involving the left cerebral hemisphere associated with hemorrhagic conversion in the infarction bed. I have been asked to see the patient for further workup and evaluation for primary hypercoagulable state. I would like to add that the transesophageal echocardiogram was negative for intracoronary shunting and there was no evidence of plaque or thrombosis noted on any of the leaflets of the valves or within the cardiac chambers. An ultrasound of the carotid arteries, however, performed on 06/17/2017 did reveal mild plaque formation in the carotid arteries bilaterally. A fairly extensive and thorough hypercoagulable workup performed on 06/19/2017 indicates no primary hypercoagulable state, specifically identified were normal levels of protein C and protein S activity, no evidence of lupus anticoagulant, no evidence of antiphospholipid antibodies and the Factor V Leiden mutation analysis was also negative. The patient's does give a history of hyperhomocysteinemia in the family. RECOMMENDATIONS Ischemic strokes with hemorrhagic conversion: At this point, I would like to complete the hypercoagulable workup by obtaining homocysteine levels. I would also like to obtain an antithrombin III activity level. A full panel of antiphospholipid antibodies has also been ordered. I will follow her periodically and await the results of the prothrombotic workup. Thus far, it appears she likely had thromboembolic events perhaps related to the bilateral carotid plaques identified. I suspect her tobaccoism also has contributed to the ischemic strokes. In the meantime, I will empirically start her on folic acid and B complex vitamins in case she may have hyperhomocysteinemia. I would like to add that multivitamins will lower her homocysteine level if they are elevated, however, it is debatable whether her risk for recurrent strokes will be modified. MD CRISTINA Mendoza/ /5:17 PM /9:31 PM
[2017-06-27] VITALS (15 sets, daily range): BP systolic 97–130; BP diastolic 57–71; PULSE 58–79; RESP 13–24; TEMP 98.3–98.6; O2SAT 94–99
[2017-06-27] MEDS: FOSPHENYTOIN SODIUM 100 MG PE/2 ML VIAL IV SCH ×2 (00:15→13:42)
[2017-06-27] MEDS: INSULIN ASPART SUPPLEMENTAL SCALE SQ SCH ×3 (07:00→21:00)
[2017-06-27] MEDS: DOCUSATE SODIUM 50 MG/SENNA 8.6 MG TAB PO SCH ×2 (09:00→20:50)
[2017-06-27] MEDS: SODIUM CHLORIDE 0.9% FLUSH 5 ML FLUSH IV FLUSH SCH ×2 (09:00→20:50)
[2017-06-27 10:04] LABS: C. DIFF EPI 027 PRESUMPTIVE NEGATIVE (NEGATIVE)
--- NOTE | 2017-06-27 10:53 | HHI.PR ---
Subjective Remarks This is a pleasant 57 y/o Female with recent CVA 06/17/17 with chronic headaches was brought in to ER with Right Hemiparesis and unable to speak she was discharged Home 06/20/17 on Aspirin and Lipitor, she was found her on the floor, not moving and non verbal. He states since she was discharged she was feeling fine, no complaints at home, she was walking around and seemed normal. Patient is non verbal. 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 discussed with patient and her relatives in the room. 06/24: Seen in her bedroom in the presence of her Father Michael Sam, Hannah Slade, her brother and sister, they already discussed with Neurology specialist Doctor Jose Eduardo, he suspected Aortic Arch atheroembolic event CECI reviewed, probable post stroke Seizures started on Cerebyx yesterday, recommended to repeat CT brain and Chest and Abdomen, to look for aortic Arch rule out mass that could cause Hypercoagulable state, she will need inpatient rehab, no blood thinners, also contemplated ICU transfer. 06/25: Stable in her bedroom, already seen by Neurology specialist in am today doing better, she was able to move to the chair PT an OT to work with her during the afternoon, had small nodule on Chest area for follow up in six months as per guideline nodules below [address] brain with colon thickening asked for GI specialist consult. 06/26: Seen by GI specialist recommended due to patient without Colonoscopy to hold for this procedure for 4 to 6 weeks, tumor markers asked, EGD and Colonoscopy in 4 to 6 weeks, asked for Stool for C Diff, C/S, Giardia, LINUS, AFP , Ca19-9, seen in her bedroom, discussed with her Mr. Harinder Hills, the patient does not need the March cath removed, also will discontinue IV fluids she is eating and drinking well. was unable to take her Potassium chloride pill switch to liquid form and follow Potassium level at 1400 hours today. 06/27: Patient seen in her bedroom in the presence of Nurse Miss Neves and her Mr. Harinder Hills. as per and nurse the patient fell yesterday at the restroom, she states she hit her head and today has More difficulty to Speak as per her she is only able to pronounce two words but from yesterday denoted some improvement but today is the same as before, was contacted Doctor Fullop and recommended to perform and MRI of the Brain and follow now. do not complaint of Nausea, vomit or diarrhea. Objective Vital Signs Date Time Temp Pulse Resp B/P (MAP) Pulse Ox O2 Delivery O2 Flow Rate FiO2 06/27/17 08:21 96 21 06/27/17 06:08 60 14 116/66 (83) 94 06/27/17 06:00 60 06/27/17 04:00 60 06/27/17 02:00 60 06/27/17 00:00 98.6 58 13 130/71 (90) 94 06/27/17 00:00 58 06/26/17 22:00 61 06/26/17 20:08 98 06/26/17 20:00 73 06/26/17 20:00 98.3 73 25 113/57 (75) 96 06/26/17 19:00 95 Room Air 06/26/17 18:00 68 06/26/17 16:00 60 06/26/17 16:00 97.7 60 16 112/60 (77) 93 06/26/17 14:00 72 06/26/17 12:00 72 06/26/17 12:00 98.3 72 22 116/75 (89) 95 I/O 06/26/17 06/26/17 06/26/17 06/27/17 06/27/17 06/27/17 07:00 15:00 23:00 07:00 15:00 23:00 Intake Total 770 ml 530 ml 290 ml Output Total 500 ml 100 ml Balance 270 ml 430 ml 290 ml Intake Oral 0 ml 480 ml 240 ml IV Total 770 ml 50 ml 50 ml Output Urine Total 500 ml 100 ml # Voids 1 4 # Bowel Movements 0 1 1 Result Diagram: 06/23/17 1545 06/26/17 1700 Imaging Last Impressions Head CT 06/24/17 0000 Signed Impressions: Service Date/Time: Saturday, June 24, 2017 10:21 - CONCLUSION: Evolving stroke as above. Little change from yesterday Charlie De La Cruz MD Chest CT 06/24/17 0000 Signed Impressions: Service Date/Time: Saturday, June 24, 2017 19:40 - CONCLUSION: 1. The thoracic aorta is intact. 2. Suspected bibasilar areas of atelectasis or consolidation being worse on the left. 3. Small 0.5 cm pulmonary nodule at the left lower lung. This could be followed with a noncontrast CT examination in 6 months. Charlie Chand MD Abdomen/Pelvis CT 06/24/17 0000 Signed Impressions: Service Date/Time: Saturday, June 24, 2017 19:40 - CONCLUSION: 1. Thickening of the proximal sigmoid colon. This could be secondary to lack of distension and some degree of underlying hypertrophy. Underlying processes including some inflammation or a neoplasm cannot be excluded. The fat around the colon in this region appears normal. There are some scattered diverticula. 2. Hepatic steatosis. 3. 5 mm pulmonary nodule seen at the left lower lobe. This is a solitary pulmonary nodule more fully described on the CT of the chest report. Charlie Chand MD Head Magnetic Resonance Angiography 06/23/17 0000 Signed Impressions: Service Date/Time: Friday, June 23, 2017 08:24 - CONCLUSION: Normal examination. Flow is now seen within the right posterior cerebral artery peripheral distribution. Keron Wei Jr., MD Brain MRI 06/23/17 0000 Signed Impressions: Service Date/Time: Friday, June 23, 2017 08:24 - CONCLUSION: 1. Large area of infarction involving the left MCA territory with scattered areas of hemorrhage within the infarct bed. 2. Subacute infarct involving the right occipital lobe. 3. The multifocality would raise concern for an embolic event. Keron Wei Jr., MD Chest X-Ray 06/22/17 1641 Signed Impressions: Service Date/Time: Thursday, June 22, 2017 16:52 - CONCLUSION: No acute disease. Ronal Hong MD FACR Procedures None Other Results Laboratory Tests Test 06/22/17 16:54 06/23/17 06:08 06/23/17 15:45 06/23/17 21:41 Prothrombin Time 10.8 SEC Prothromb Time International Ratio 1.0 RATIO Activated Partial Thromboplast Time 24.7 SEC Urine Color YELLOW Urine Turbidity HAZY Urine pH 5.0 Urine Specific Almond 1.015 Urine Protein NEG mg/dL Urine Glucose (UA) NEG mg/dL Urine Ketones NEG mg/dL Urine Occult Blood NEG Urine Nitrite NEG Urine Bilirubin NEG Urine Urobilinogen LESS THAN 2.0 MG/DL Urine Leukocyte Esterase NEG Urine RBC LESS THAN 1 /hpf Urine WBC 1 /hpf Urine Squamous Epithelial Cells 1 /hpf Urine Mucus FEW /lpf Microscopic Urinalysis Comment CULT NOT INDICATED White Blood Count 10.3 TH/MM3 Red Blood Count 4.78 MIL/MM3 Hemoglobin 14.6 GM/DL Hematocrit 43.6 % Mean Corpuscular Volume 91.3 FL Mean Corpuscular Hemoglobin 30.6 PG Mean Corpuscular Hemoglobin Concent 33.6 % Red Cell Distribution Width 14.1 % Platelet Count 237 TH/MM3 Mean Platelet Volume 10.0 FL Neutrophils (%) (Auto) 84.3 % Lymphocytes (%) (Auto) 9.5 % Monocytes (%) (Auto) 5.9 % Eosinophils (%) (Auto) 0.1 % Basophils (%) (Auto) 0.2 % Neutrophils # (Auto) 8.7 TH/MM3 Lymphocytes # (Auto) 1.0 TH/MM3 Monocytes # (Auto) 0.6 TH/MM3 Eosinophils # (Auto) 0.0 TH/MM3 Basophils # (Auto) 0.0 TH/MM3 CBC Comment DIFF FINAL Differential Comment Hemoglobin A1c 5.8 % Blood Urea Nitrogen 12 MG/DL Creatinine 0.66 MG/DL Random Glucose 91 MG/DL Total Protein 7.3 GM/DL Albumin 3.6 GM/DL Calcium Level 8.6 MG/DL Phosphorus Level 1.9 MG/DL Magnesium Level 2.1 MG/DL Alkaline Phosphatase 94 U/L Aspartate Amino Transf (AST/SGOT) 29 U/L Alanine Aminotransferase (ALT/SGPT) 34 U/L Total Bilirubin 0.6 MG/DL Sodium Level 143 MEQ/L Potassium Level 3.5 MEQ/L Chloride Level 110 MEQ/L Carbon Dioxide Level 25.1 MEQ/L Triglycerides Level 91 MG/DL Cholesterol Level 168 MG/DL LDL Cholesterol 106 MG/DL HDL Cholesterol 44.2 MG/DL Cholesterol/HDL Ratio 3.80 RATIO Free Thyroxine 1.14 NG/DL Thyroid Stimulating Hormone 3rd Gen 1.380 uIU/ML Anti-Nuclear Antibody Screen NEG Rapid Plasma Reagin NON-REACTIVE Total Creatine Kinase 119 U/L Troponin I 0.07 NG/ML Test 06/25/17 05:00 06/25/17 21:37 06/26/17 04:34 06/26/17 17:00 Nasal Screen MRSA (PCR) MRSA NOT DETECTED Tumor Marker Alpha Fetoprotein 3.0 NG/ML Carcinoembryonic Antigen 2.2 NG/ML CA 19-9 Antigen 3.9 U/ML Blood Urea Nitrogen 11 MG/DL Creatinine 0.54 MG/DL Random Glucose 81 MG/DL Calcium Level 8.4 MG/DL Phosphorus Level 2.7 MG/DL Magnesium Level 2.1 MG/DL Sodium Level 141 MEQ/L Potassium Level 3.1 MEQ/L 4.0 MEQ/L Chloride Level 106 MEQ/L Carbon Dioxide Level 27.2 MEQ/L Anion Gap 8 MEQ/L Estimat Glomerular Filtration Rate 117 ML/MIN Test 06/27/17 05:37 06/27/17 05:45 Phenytoin (Dilantin) Level 14.1 MCG/ML Stool C. difficile Toxin (PCR) NEGATIVE Stl C. difficile Toxin Epiderm 027 PRESUMPTIVE NEGATIVE Objective Remarks GENERAL: This is a well-nourished, able to speak two words. SKIN: No rashes, ecchymoses or lesions. Cool and dry. HEAD: Atraumatic. Normocephalic. no evidence of trauma on her head. EYES: Pupils equal round and slight reaction. ENT: Nose without bleeding, purulent drainage or septal hematoma. Airway patent. NECK: Trachea midline. No JVD or lymphadenopathy. Supple, nontender, no meningeal signs. CARDIOVASCULAR: Regular rate and rhythm without murmurs, gallops, or rubs. RESPIRATORY: Clear to auscultation. Breath sounds equal bilaterally. No wheezes , rales, or rhonchi. GASTROINTESTINAL: Abdomen soft, non-tender, nondistended. MUSCULOSKELETAL: Extremities without clubbing, cyanosis, or edema. No joint tenderness, effusion, or edema noted. NEUROLOGICAL: Awake and non verbal. moving four extremities. Medications and IVs Current Medications Medications (Trade) Dose Ordered Sig/Doreen Route Start Time Stop Time Status Last Admin (NS Flush) 2 ml BID IV FLUSH 06/22/17 21:00 06/26/17 20:22 (NS Flush) 2 ml UNSCH PRN IV FLUSH 06/22/17 18:45 (NovoLOG SUPPLEMENTAL SCALE) 1 ACHS SQ 06/22/17 21:00 06/26/17 20:25 (D50w (Vial) Inj) 50 ml UNSCH PRN IV PUSH 06/22/17 18:45 (Glucagon Inj) 1 mg UNSCH PRN OTHER 06/22/17 18:45 (Tylenol) 650 mg Q4H PRN PO 06/22/17 18:45 (Zofran Inj) 4 mg Q6H PRN IVP 06/22/17 18:45 (Compazine Supp) 25 mg Q12H PRN RECTAL 06/22/17 18:45 (Tylenol) 650 mg Q6H PRN PO 06/22/17 18:45 (Percocet 5-325 Mg) 1 tab Q6H PRN PO 06/22/17 18:45 (Percocet 10-325 Mg) 1 tab Q6H PRN PO 06/22/17 18:45 (Morphine Inj) 2 mg Q3H PRN IV 06/22/17 18:45 (Morphine Inj) 4 mg Q3H PRN IV 06/22/17 18:45 (Narcan Inj) 0.4 mg UNSCH PRN IV 06/22/17 18:45 (Pari-Colace) 1 tab BID PO 06/22/17 21:00 06/26/17 20:25 (Milk Of Magnesia Liq) 30 ml Q12H PRN PO 06/22/17 18:45 (Senokot) 17.2 mg Q12H PRN PO 06/22/17 18:45 (Dulcolax Supp) 10 mg DAILY PRN RECTAL 06/22/17 18:45 (Lactulose Liq) 30 ml DAILY PRN PO 06/22/17 18:45 (Cerebyx Inj) 200 mgpe Q12H IV 06/24/17 00:00 06/27/17 00:15 A/P Assessment and Plan 57 y/o female with a history of a recent CVA 06/17/2017 and chronic headaches was brought to the ED with right hemiparesis and unable to speak. She was discharged home on Thursday and was given aspirin and Lipitor. Per the patient' s she was last seen normal at 8am this morning when he left for work, he states several people tried to call her but she did not answer, when he returned from work he found her on the floor, not moving and non verbal. Left Infarction involving The left MCA territory with scattered areas of Hemorrhage within the infarct bed, Subacute infarct involving the right occipital lobe, The Multifocality call attention about Embolic Event. 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 new CT brain no change from yesterday Stable improving condition, today transfer to the chair by herself , will work with Physical Therapy and Occupational therapy later today, found Lung Nodule less than 6 mm agree with follow up in six months, also has Colon thickening asked for GI specialist consult. Seen by GI specialist recommended due to patient without Colonoscopy to hold for this procedure for 4 to 6 weeks, tumor markers asked, EGD and Colonoscopy in 4 to 6 weeks, asked for Stool for C Diff, C /S, Giardia, LINUS, AFP, Ca19-9. HLD, chronic -High intensity Statin, LDL 108 need to be below 70. Leukocytosis, likely reactive, Improved, UA negative for infection. Severe Tobacco dependence strongly recommended to stop smoking. started on Bronchodilator, Mucolytic and incentive spirometry. Medical Non compliance the patient continue smoking even having this pathology. Hypokalemia Replaced. Status post fall asked by Neurology for MRI brain at this time order placed by me. DVT prophylaxis: SCDs, hold chemical for now for possible hemorrhage Discussed Condition With Patient, her Mr. Harinder Hills and Nurse Miss Neves. all questions answered to the best of my abilities. Discharge Planning Already Set for CIR starting next week on Thursday or Thursday. Michael Brooks MD Jun 27, 2017 10:53
[2017-06-27] MEDS ORDERED: GADODIAMIDE PF 287 MG/ML 5 ML VIAL (for RAD MRI) IVCONTRAST ONE (13:16)
--- NOTE | 2017-06-27 13:17 | RADRPT ---
EXAM DATE/TIME: 06/27/2017 12:24 [facility] COMPARISON: CT THORAX W CONTRAST, June 24, 2017, 19:40. MRI BRAIN W/O CONTRAST, June 23, 2017, 8:24. INDICATIONS : Hemorrhage. CONTRAST: 14 cc Omniscan (gadodiamide) IV MEDICAL HISTORY : CVAs SURGICAL HISTORY : Tubal ligation. ENCOUNTER: Initial ACUITY: 1 week PAIN SCORE: 0/10 LOCATION: cranial TECHNIQUE: Multiplanar, multisequence MRI of the brain was performed both prior to and following the administrat ion of paramagnetic contrast. FINDINGS: Evolving areas are restricted diffusion are seen in the left hemisphere. Findings in the right occip ital region have resolved. Hemorrhagic conversion is seen in the left orbitofrontal region and high left parietal occipital region without mass effect. Minimal hemorrhagic conversion is seen in the ri ght occipital region. Ventricular size is appropriate. Findings venous administration of gadolinium there is gyriform enhancement in the right occipital reg ion. Subtle enhancement is seen scattered in the left hemisphere. The posterior fossa remains spared. CONCLUSION: Evolving changes in the brain that are probably all related to an ischemic embolic event. I don't se e it in progression to suggest a subsequent embolic event. CTA of the carotids show no source of emboli; Further evaluation is suggested to exclude such. Followup MRI in 4-6 weeks of contrast would be of benefit to be sure these findings are evolving as w e expect ischemic changes to do. Ronal Hong MD FACR on June 27, 2017 at 13:09 Board Certified Radiologist. This report was verified electronically.
--- NOTE | 2017-06-27 13:30 | HHI.PR ---
Subjective Remarks fell early this am in the toilet hit head s/p mri brain Objective Vital Signs Date Time Temp Pulse Resp B/P (MAP) Pulse Ox O2 Delivery O2 Flow Rate FiO2 06/27/17 08:21 96 21 06/27/17 06:08 60 14 116/66 (83) 94 06/27/17 06:00 60 06/27/17 04:00 60 06/27/17 02:00 60 06/27/17 00:00 98.6 58 13 130/71 (90) 94 06/27/17 00:00 58 06/26/17 22:00 61 06/26/17 20:08 98 06/26/17 20:00 73 06/26/17 20:00 98.3 73 25 113/57 (75) 96 06/26/17 19:00 95 Room Air 06/26/17 18:00 68 06/26/17 16:00 60 06/26/17 16:00 97.7 60 16 112/60 (77) 93 06/26/17 14:00 72 I/O 06/26/17 06/26/17 06/26/17 06/27/17 06/27/17 06/27/17 07:00 15:00 23:00 07:00 15:00 23:00 Intake Total 770 ml 530 ml 290 ml Output Total 500 ml 100 ml Balance 270 ml 430 ml 290 ml Intake Oral 0 ml 480 ml 240 ml IV Total 770 ml 50 ml 50 ml Output Urine Total 500 ml 100 ml # Voids 1 4 # Bowel Movements 0 1 1 awake alert aphasic,pleasant smiles tries to follow right hemiparesis mild dtrs 2=3 right Result Diagram: 06/23/17 1545 06/26/17 1700 Imaging mri brain06/27 17-min hemor conversion right occipital region of stroke no new findings evolving changes of stroke. Procedures None Other Results pht 11.9 Assessment and Plan Assessment and Plan stroke left mca and right sub ac occipital min hemor.conversion still seen on mri would hold asa for 48hr and recheck ct brain on Thursday cont pht pt-ot-st,rehab. scds in bed. Yolanda Brennan MD Jun 27, 2017 13:30
[2017-06-27] MEDS ORDERED: RESP: ALBUTEROL 2.5 MG/IPRATROPIUM 0.5 MG NEB (PRN) NEB (20:45)
--- NOTE | 2017-06-27 21:42 | MB ---
cc: Itzel BELTRAN M.D. DATE OF CONSULTATION 06/27/17 REASON FOR CONSULTATION Pulmonary nodule. HISTORY OF PRESENT ILLNESS This is a 57-year-old lady who has a prior history of smoking for over 30 years. Apparently, 2 weeks ago was brought to the emergency room with nausea and vomiting. The patient was given IV fluids and treatment for her nausea and was subsequently was home and was feeling well but the following day she apparently became drowsy and was sleeping most of the day for a couple of days. Following that the patient apparently had some problems with her vision and the patient then was again brought to the emergency room at [facility] and an MRI of the brain was performed on 06/17. She was then found to have a subacute infarct involving the medial right occipital lobe without mass effect. Following that the patient did undergo a cardiac workup and a CECI, echocardiogram and there was no evidence of cardiac thrombosis. The patient was then discharged home on aspirin and Lipitor. Two days after her discharge the patient apparently was found by her on 06/22/17 to be unconscious on the floor. She had trouble speaking and moving her right upper extremity and the right leg as well and she was again brought to the emergency room and had an MRI of the brain which revealed a large area of infarction involving the left MCA territory and scattered areas of hemorrhage within the infarct bed. Subacute infarct of the right occipital lobe. The patient has been worked up for hypercoagulable state. She also in the course of her investigations had a CT of the chest done and a CT of the chest done on 06/24 apparently showed mild areas of atelectasis and areas os atelectasis, a 0.5 cm pulmonary nodule in the left lower lung and a followup CT scan in 6 months was recommended. The patient is receiving physiotherapy and she is awake but somewhat lethargic, unable to answer any questions and seemed to be moaning. She is not running any fevers. She has an occasional cough. She has no wheezing and her oxygen saturation is 95% on room air. PAST MEDICAL HISTORY Includes history of ischemic stroke. history of tubal ligation and probable history of lung disease from longstanding history of smoking. She is 2, para 2. HABITS The patient smokes half pack per day, has done so for over 25 years. Occasional alcohol use. She lives with her locally. FAMILY HISTORY Significant for coronary artery disease in her father. Mother of a brain hemorrhage. ALLERGIES PENICILLIN AND SULFA. MEDICATIONS List included: 1. Insulin per sliding scale. 2. Morphine p.r.n. 4 milligrams. 3. Fosphenytoin 200 milligrams IV q. 12. REVIEW OF SYSTEMS The patient is unable to provide any details and seems to be aphasic. She is morning and most of the information is obtained from her who is present here. PHYSICAL EXAMINATION GENERAL: This is a middle-aged averagely built white female who is awake and somewhat lethargic but moving her left extremities fairly well. VITAL SIGNS: Blood pressure 120/60, pulse is 75, respirations 16, temperature 98.2. She is in no acute distress. No pallor or cyanosis. No icterus or peripheral edema. HEENT: Head normocephalic. Pupils are reactive. Tongue was moist. Throat is clear. Nasal mucosa is clear. NECK: Supple without venous distension. No bruits or thyroid enlargement. CHEST: Equal movements. Good breath sounds bilaterally with occasional wheezes in the left lung sharpe. No crackles. HEART: Sounds are regular S1-S2. No murmur. No S3. ABDOMEN: Abdomen is soft, nontender. No organomegaly. Bowel sounds are active. EXTREMITIES: No edema. Peripheral pulses are well felt. NEURO: The patient did not follow instructions to beater out hands and she was dysarthric and has some weakness of the right extremities. SKIN: Skin was dry and cool. IMAGING STUDIES CT scan as mentioned above, has mild basilar atelectasis and 0.5 cm pulmonary nodule in the left lower zone. IMPRESSION 1. Left pulmonary nodule, etiology undetermined. 2. Basilar atelectasis. 3. History of recent occipital stroke and infarction involving the left MCA territory. 4. Probable underlying obstructive lung disease. PLAN The patient will need to have further workup on her pulmonary nodule and a followup CT scan to be obtained in [address] to be done as an outpatient. We will also get a pulmonary function study while she is in the hospital. Nebulized DuoNeb solution added q. 8-hour p.r.n. incentive spirometry every 3 hours at the bedside and the patient will have a follow up chest x-ray this week. Blood gas study will be obtained and oxygen supplementation added as a as-needed at 2 liters nasal cannula. I will follow and discuss the case with you, Dr. Rebolledo, thank you for this consultation. MD NIGEL Cordon/YEFRI /8:58 PM /9:20 PM
[2017-06-27 22:02] LABS: BLOOD GAS BASE EXCESS 3.3 mmol/L (-2-2); BLOOD GAS CARBOXYHEMOGLOBIN 1.1 % (0-4); BLOOD GAS HCO3 27 mmol/L (22-26); BLOOD GAS O2 HGB SATURATION 94 % (90-100); BLOOD GAS OXYGEN CONTENT 17.2 Vol % (12.0-20.0); BLOOD GAS PCO2 40 mmHg (38-42); BLOOD GAS PO2 80 mmHg (61-120); TEMP CORR TO 98.6
[2017-06-27 22:03] LABS: CRITICAL VALUE NO; DRAW SITE LT RADIAL; FIO2 21 %; NUMBER OF ARTERIAL PUNCTURES 1; OXYGEN DEVICE ROOM AIR; STAT NO; ULNAR PULSE PRESENT
[2017-06-28] VITALS (11 sets, daily range): BP systolic 94–124; BP diastolic 46–59; PULSE 60–83; RESP 14–24; TEMP 97.7–98.6; O2SAT 93–98
[2017-06-28] MEDS: FOSPHENYTOIN SODIUM 100 MG PE/2 ML VIAL IV SCH ×2 (00:27→12:40)
[2017-06-28 05:31] LABS: AUTOMATED NEUTROPHIL # 6.4 TH/MM3 (1.8-7.7); BASOPHIL # 0.1 TH/MM3 (0-0.2); BASOPHIL % 0.9 % (0.0-2.0); EOSINOPHIL # 0.1 TH/MM3 (0-0.4); EOSINOPHIL % 1.6 % (0.0-4.0); HEMATOCRIT 40.1 % (35.0-46.0); HEMO FLAGS DIFF FINAL; LYMPH % 16.8 % (9.0-44.0); LYMPHOCYTE # 1.5 TH/MM3 (1.0-4.8); MEAN CELL VOLUME 91.1 FL (80.0-100.0); MEAN CORPUSCULAR HEMOGLOBIN 30.7 PG (27.0-34.0); MEAN CORPUSCULAR HGB CONC 33.7 % (32.0-36.0); NEUT % 72.7 % (16.0-70.0); PLATELET COUNT 214 TH/MM3 (150-450); RED BLOOD COUNT 4.41 MIL/MM3 (4.00-5.30); RED CELL DISTRIBUTION WIDTH 14.4 % (11.6-17.2); WHITE BLOOD COUNT 8.8 TH/MM3 (4.0-11.0)
[2017-06-28 05:54] LABS: BICARBONATE 29.5 MEQ/L (21.0-32.0); POTASSIUM 3.5 MEQ/L (3.5-5.1)
--- NOTE | 2017-06-28 06:18 | RADRPT ---
EXAM DATE/TIME: 06/28/2017 04:51 [facility] COMPARISON: CHEST SINGLE AP, June 22, 2017, 16:52. INDICATIONS : Shortness of breath. MEDICAL HISTORY : CVA SURGICAL HISTORY : Tubal ligation. ENCOUNTER: Subsequent ACUITY: 1 week PAIN SCORE: 3/10 LOCATION: Bilateral chest FINDINGS: A single view of the chest demonstrates the lungs to be symmetrically aerated without evidence of mas s, infiltrate or effusion. The cardiomediastinal contours are unremarkable. Osseous structures are intact. CONCLUSION: No acute disease. Michael Campbell MD on June 28, 2017 at 6:16 Board Certified Radiologist. This report was verified electronically.
[2017-06-28] MEDS: INSULIN ASPART SUPPLEMENTAL SCALE SQ SCH ×4 (07:00→20:58)
--- NOTE | 2017-06-28 08:45 | RADRPT ---
EXAM DATE/TIME: 06/28/2017 08:14 [facility] COMPARISON: MRI BRAIN W & W/O CONTRAST, June 27, 2017, 12:24. MRI BRAIN W/O CONTRAST, June 23, 2017, 8:[address] BRAIN W/O CONTRAST, June 24, 2017, 10:21. INDICATIONS : F/U stroke. RADIATION DOSE: 43.27 CTDIvol (mGy) MEDICAL HISTORY : Stroke. SURGICAL HISTORY : None. ENCOUNTER: Subsequent ACUITY: 1 week PAIN SCALE: 0/10 LOCATION: cranial TECHNIQUE: Multiple contiguous axial images were obtained of the head. Using automated exposure control and adj ustment of the mA and/or kV according to patient size, radiation dose was kept as low as reasonably a chievable to obtain optimal diagnostic quality images. DICOM format image data is available electro nically for review and comparison. FINDINGS: There is a history of left MCA territory infarction with associated hemorrhage in the left frontal re gion. This is not significantly changed. Right occipital infarct is also noted with hypodensity seen. There is mild left ventricular effacement. There is 1.5 mm of midline shift. No fractures. CONCLUSION: 1. Subacute infarct right occipital lobe, and acute infarct left MCA territory with hematoma identifi ed. There is mild mass effect. Pedro Phillips MD on June 28, 2017 at 8:40 Board Certified Radiologist. This report was verified electronically.
[2017-06-28] MEDS: SODIUM CHLORIDE 0.9% FLUSH 5 ML FLUSH IV FLUSH SCH ×2 (09:00→20:57)
[2017-06-28] MEDS: DOCUSATE SODIUM 50 MG/SENNA 8.6 MG TAB PO SCH ×2 (09:00→20:58)
--- NOTE | 2017-06-28 11:24 | HHI.PR ---
Subjective Remarks This is a pleasant 57 y/o Female with recent CVA 06/17/17 with chronic headaches was brought in to ER with Right Hemiparesis and unable to speak she was discharged Home 06/20/17 on Aspirin and Lipitor, she was found her on the floor, not moving and non verbal. He states since she was discharged she was feeling fine, no complaints at home, she was walking around and seemed normal. Patient is non verbal. 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 discussed with patient and her relatives in the room. 06/24: Seen in her bedroom in the presence of her Father Michael Sam, Hannah Slade, her brother and sister, they already discussed with Neurology specialist Doctor Jose Eduardo, he suspected Aortic Arch atheroembolic event CECI reviewed, probable post stroke Seizures started on Cerebyx yesterday, recommended to repeat CT brain and Chest and Abdomen, to look for aortic Arch rule out mass that could cause Hypercoagulable state, she will need inpatient rehab, no blood thinners, also contemplated ICU transfer. 06/25: Stable in her bedroom, already seen by Neurology specialist in am today doing better, she was able to move to the chair PT an OT to work with her during the afternoon, had small nodule on Chest area for follow up in six months as per guideline nodules below [address] brain with colon thickening asked for GI specialist consult. 06/26: Seen by GI specialist recommended due to patient without Colonoscopy to hold for this procedure for 4 to 6 weeks, tumor markers asked, EGD and Colonoscopy in 4 to 6 weeks, asked for Stool for C Diff, C/S, Giardia, LINUS, AFP , Ca19-9, seen in her bedroom, discussed with her Mr. Harinder Hills, the patient does not need the March cath removed, also will discontinue IV fluids she is eating and drinking well. was unable to take her Potassium chloride pill switch to liquid form and follow Potassium level at 1400 hours today. 06/27: Patient seen in her bedroom in the presence of Nurse Miss Neves and her Mr. Harinder Hills. as per and nurse the patient fell yesterday at the restroom, she states she hit her head and today has More difficulty to Speak as per her she is only able to pronounce two words but from yesterday denoted some improvement but today is the same as before, was contacted Doctor Fullop and recommended to perform and MRI of the Brain and follow now. 06/28: Seen in her bedroom, no complaint, manufacturing specialist following, Left Pulmonary Nodule, recommended PFTs for tomorrow in am, follow up Chest CT as outpatient in 3 months. recommended for rehab when okay with Neurology. Neurology specialist following, recommended to continue on hold for antiplatelets for now due to hemorrhagic conversion, not yet cleared for Rehab. No nausea, vomit or diarrhea. Objective Vital Signs Date Time Temp Pulse Resp B/P (MAP) Pulse Ox O2 Delivery O2 Flow Rate FiO2 06/28/17 08:00 96 Room Air 06/28/17 08:00 69 06/28/17 08:00 97.7 69 16 104/52 (69) 96 06/28/17 06:00 60 06/28/17 04:00 98.6 66 24 124/57 (79) 96 06/28/17 04:00 66 06/28/17 02:00 69 06/28/17 00:00 97.7 68 24 115/55 (75) 97 06/28/17 00:00 68 06/27/17 22:00 67 06/27/17 20:36 96 21 06/27/17 20:00 70 06/27/17 20:00 98.6 70 24 97/62 (74) 97 06/27/17 19:00 94 Room Air 06/27/17 18:00 79 06/27/17 16:00 98.3 73 22 119/57 (77) 99 06/27/17 16:00 73 06/27/17 14:00 71 06/27/17 12:00 98.4 71 24 106/63 (77) 98 06/27/17 12:00 71 I/O 06/27/17 06/27/17 06/27/17 06/28/17 06/28/17 06/28/17 06:59 14:59 22:59 06:59 14:59 22:59 Intake Total 290 ml 440 ml 0 ml Output Total 251 ml Balance 290 ml 189 ml 0 ml Intake Oral 240 ml 440 ml 0 ml IV Total 50 ml Output Urine Total 250 ml Stool Total 1 ml # Voids 4 1 1 # Bowel Movements 1 0 Result Diagram: 06/28/1742606/28/17426 Imaging Last Impressions Head CT 06/28/17 0800 Signed Impressions: Service Date/Time: Wednesday, June 28, 2017 08:14 - CONCLUSION: 1. Subacute infarct right occipital lobe, and acute infarct left MCA territory with hematoma identified. There is mild mass effect. Pedro Phillips MD Chest X-Ray 06/28/17 0600 Signed Impressions: Service Date/Time: Wednesday, June 28, 2017 04:51 - CONCLUSION: No acute disease. Michael Campbell MD Brain MRI 06/27/17 0000 Signed Impressions: Service Date/Time: Tuesday, June 27, 2017 12:24 - CONCLUSION: Evolving changes in the brain that are probably all related to an ischemic embolic event. I don't see it in progression to suggest a subsequent embolic event. CTA of the carotids show no source of emboli; Further evaluation is suggested to exclude such. Followup MRI in 4-6 weeks of contrast would be of benefit to be sure these findings are evolving as we expect ischemic changes to do. Ronal Hong MD FACR Chest CT 06/24/17 0000 Signed Impressions: Service Date/Time: Saturday, June 24, 2017 19:40 - CONCLUSION: 1. The thoracic aorta is intact. 2. Suspected bibasilar areas of atelectasis or consolidation being worse on the left. 3. Small 0.5 cm pulmonary nodule at the left lower lung. This could be followed with a noncontrast CT examination in 6 months. Charlie Chand MD Abdomen/Pelvis CT 06/24/17 0000 Signed Impressions: Service Date/Time: Saturday, June 24, 2017 19:40 - CONCLUSION: 1. Thickening of the proximal sigmoid colon. This could be secondary to lack of distension and some degree of underlying hypertrophy. Underlying processes including some inflammation or a neoplasm cannot be excluded. The fat around the colon in this region appears normal. There are some scattered diverticula. 2. Hepatic steatosis. 3. 5 mm pulmonary nodule seen at the left lower lobe. This is a solitary pulmonary nodule more fully described on the CT of the chest report. Charlie Chand MD Head Magnetic Resonance Angiography 06/23/17 0000 Signed Impressions: Service Date/Time: Friday, June 23, 2017 08:24 - CONCLUSION: Normal examination. Flow is now seen within the right posterior cerebral artery peripheral distribution. Keron Wei Jr., MD Procedures None Other Results Laboratory Tests Test 06/22/17 16:54 06/23/17 06:08 06/23/17 15:45 06/23/17 21:41 Prothrombin Time 10.8 SEC Prothromb Time International Ratio 1.0 RATIO Activated Partial Thromboplast Time 24.7 SEC Urine Color YELLOW Urine Turbidity HAZY Urine pH 5.0 Urine Specific [place] 1.015 Urine Protein NEG mg/dL Urine Glucose (UA) NEG mg/dL Urine Ketones NEG mg/dL Urine Occult Blood NEG Urine Nitrite NEG Urine Bilirubin NEG Urine Urobilinogen LESS THAN 2.0 MG/DL Urine Leukocyte Esterase NEG Urine RBC LESS THAN 1 /hpf Urine WBC 1 /hpf Urine Squamous Epithelial Cells 1 /hpf Urine Mucus FEW /lpf Microscopic Urinalysis Comment CULT NOT INDICATED Hemoglobin A1c 5.8 % Blood Urea Nitrogen 12 MG/DL Creatinine 0.66 MG/DL Random Glucose 91 MG/DL Total Protein 7.3 GM/DL Albumin 3.6 GM/DL Calcium Level 8.6 MG/DL Phosphorus Level 1.9 MG/DL Magnesium Level 2.1 MG/DL Alkaline Phosphatase 94 U/L Aspartate Amino Transf (AST/SGOT) 29 U/L Alanine Aminotransferase (ALT/SGPT) 34 U/L Total Bilirubin 0.6 MG/DL Sodium Level 143 MEQ/L Potassium Level 3.5 MEQ/L Chloride Level 110 MEQ/L Carbon Dioxide Level 25.1 MEQ/L Triglycerides Level 91 MG/DL Cholesterol Level 168 MG/DL LDL Cholesterol 106 MG/DL HDL Cholesterol 44.2 MG/DL Cholesterol/HDL Ratio 3.80 RATIO Free Thyroxine 1.14 NG/DL Thyroid Stimulating Hormone 3rd Gen 1.380 uIU/ML Anti-Nuclear Antibody Screen NEG Rapid Plasma Reagin NON-REACTIVE Total Creatine Kinase 119 U/L Troponin I 0.07 NG/ML Test 06/25/17 05:00 06/25/17 21:37 06/26/17 17:00 06/27/17 05:37 Nasal Screen MRSA (PCR) MRSA NOT DETECTED Tumor Marker Alpha Fetoprotein 3.0 NG/ML Carcinoembryonic Antigen 2.2 NG/ML CA 19-9 Antigen 3.9 U/ML Test 06/27/17 05:45 06/27/17 21:50 06/28/17 04:27 Stool C. difficile Toxin (PCR) NEGATIVE Stl C. difficile Toxin Epiderm 027 PRESUMPTIVE NEGATIVE Blood Gas Puncture Site LT RADIAL Blood Gas Patient Temperature 98.6 Blood Gas HCO3 27 mmol/L Blood Gas Base Excess 3.3 mmol/L Blood Gas Oxygen Saturation 94 % Arterial Blood pH 7.45 Arterial Blood Partial Pressure CO2 40 mmHg Arterial Blood Partial Pressure O2 80 mmHg Arterial Blood Oxygen Content 17.2 Vol % Arterial Blood Carboxyhemoglobin 1.1 % Arterial Blood Methemoglobin 1.0 % Blood Gas Hemoglobin 13.0 G/DL Oxygen Delivery Device ROOM AIR Blood Gas Inspired Oxygen 21 % White Blood Count 8.8 TH/MM3 Red Blood Count 4.41 MIL/MM3 Hemoglobin 13.5 GM/DL Hematocrit 40.1 % Mean Corpuscular Volume 91.1 FL Mean Corpuscular Hemoglobin 30.7 PG Mean Corpuscular Hemoglobin Concent 33.7 % Red Cell Distribution Width 14.4 % Platelet Count 214 TH/MM3 Mean Platelet Volume 10.4 FL Neutrophils (%) (Auto) 72.7 % Lymphocytes (%) (Auto) 16.8 % Monocytes (%) (Auto) 8.0 % Eosinophils (%) (Auto) 1.6 % Basophils (%) (Auto) 0.9 % Neutrophils # (Auto) 6.4 TH/MM3 Lymphocytes # (Auto) 1.5 TH/MM3 Monocytes # (Auto) 0.7 TH/MM3 Eosinophils # (Auto) 0.1 TH/MM3 Basophils # (Auto) 0.1 TH/MM3 CBC Comment DIFF FINAL Differential Comment Blood Urea Nitrogen 15 MG/DL Creatinine 0.62 MG/DL Random Glucose 84 MG/DL Calcium Level 8.4 MG/DL Phosphorus Level 3.8 MG/DL Magnesium Level 2.0 MG/DL Sodium Level 140 MEQ/L Potassium Level 3.5 MEQ/L Chloride Level 106 MEQ/L Carbon Dioxide Level 29.5 MEQ/L Anion Gap 5 MEQ/L Estimat Glomerular Filtration Rate 100 ML/MIN Phenytoin (Dilantin) Level 15.0 MCG/ML Objective Remarks GENERAL: This is a well-nourished, able to speak two words. SKIN: No rashes, ecchymoses or lesions. Cool and dry. HEAD: Atraumatic. Normocephalic. no evidence of trauma on her head. EYES: Pupils equal round and slight reaction. ENT: Nose without bleeding, purulent drainage or septal hematoma. Airway patent. NECK: Trachea midline. No JVD or lymphadenopathy. Supple, nontender, no meningeal signs. CARDIOVASCULAR: Regular rate and rhythm without murmurs, gallops, or rubs. RESPIRATORY: Clear to auscultation. Breath sounds equal bilaterally. No wheezes , rales, or rhonchi. GASTROINTESTINAL: Abdomen soft, non-tender, nondistended. MUSCULOSKELETAL: Extremities without clubbing, cyanosis, or edema. No joint tenderness, effusion, or edema noted. NEUROLOGICAL: Awake and non verbal. moving four extremities. aphasia. Medications and IVs Current Medications Medications (Trade) Dose Ordered Sig/Doreen Route Start Time Stop Time Status Last Admin (NS Flush) 2 ml BID IV FLUSH 06/22/17 21:00 06/28/17 09:00 (NS Flush) 2 ml UNSCH PRN IV FLUSH 06/22/17 18:45 (NovoLOG SUPPLEMENTAL SCALE) 1 ACHS SQ 06/22/17 21:00 06/26/17 20:25 (D50w (Vial) Inj) 50 ml UNSCH PRN IV PUSH 06/22/17 18:45 (Glucagon Inj) 1 mg UNSCH PRN OTHER 06/22/17 18:45 (Tylenol) 650 mg Q4H PRN PO 06/22/17 18:45 (Zofran Inj) 4 mg Q6H PRN IVP 06/22/17 18:45 (Compazine Supp) 25 mg Q12H PRN RECTAL 06/22/17 18:45 (Tylenol) 650 mg Q6H PRN PO 06/22/17 18:45 (Percocet 5-325 Mg) 1 tab Q6H PRN PO 06/22/17 18:45 (Percocet 10-325 Mg) 1 tab Q6H PRN PO 06/22/17 18:45 (Morphine Inj) 2 mg Q3H PRN IV 06/22/17 18:45 (Morphine Inj) 4 mg Q3H PRN IV 06/22/17 18:45 (Narcan Inj) 0.4 mg UNSCH PRN IV 06/22/17 18:45 (Pari-Colace) 1 tab BID PO 06/22/17 21:00 06/26/17 20:25 (Milk Of Magnesia Liq) 30 ml Q12H PRN PO 06/22/17 18:45 (Senokot) 17.2 mg Q12H PRN PO 06/22/17 18:45 (Dulcolax Supp) 10 mg DAILY PRN RECTAL 06/22/17 18:45 (Lactulose Liq) 30 ml DAILY PRN PO 06/22/17 18:45 (Cerebyx Inj) 200 mgpe Q12H IV 06/24/17 00:00 06/28/17 00:27 (Duoneb Neb) 1 ampule Q6HR NEB PRN NEB 06/27/17 20:45 A/P Assessment and Plan 57 y/o female with a history of a recent CVA 06/17/2017 and chronic headaches was brought to the ED with right hemiparesis and unable to speak. She was discharged home on Thursday and was given aspirin and Lipitor. Per the patient' s she was last seen normal at 8am this morning when he left for work, he states several people tried to call her but she did not answer, when he returned from work he found her on the floor, not moving and non verbal. Left Infarction involving The left MCA territory with scattered areas of Hemorrhage within the infarct bed, Subacute infarct involving the right occipital lobe, The [employer] call attention about Embolic Event. continue on Hold her antiplatelets. 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 new CT brain no change from yesterday Stable improving condition, today transfer to the chair by herself , will work with Physical Therapy and Occupational therapy later today, found Lung Nodule less than 6 mm agree with follow up in six months, also has Colon thickening asked for GI specialist consult. Seen by GI specialist recommended due to patient without Colonoscopy to hold for this procedure for 4 to 6 weeks, tumor markers asked, EGD and Colonoscopy in 4 to 6 weeks, asked for Stool for C Diff, C /S, Giardia, LINUS, AFP, Ca19-9. Pulmonary Nodule for follow up as outpatient as per manufacturing specialist. HLD, chronic -High intensity Statin, LDL 108 need to be below 70. Leukocytosis, likely reactive, Improved, UA negative for infection. Severe Tobacco dependence strongly recommended to stop smoking. started on Bronchodilator, Mucolytic and incentive spirometry. Medical Non compliance the patient continue smoking even having this pathology. Hypokalemia Replaced. Status post fall asked by Neurology for MRI brain at this time order placed by me. DVT prophylaxis: SCDs, hold chemical for now for possible hemorrhage Discussed Condition With Patient and nurse. all questions answered to the best of my abilities. Discharge Planning Already Set for CIR starting next week on Thursday or Thursday. Michael Brooks MD Jun 28, 2017 11:24
[2017-06-28] MEDS ORDERED: POTASSIUM CHLORIDE 20 MEQ CONTROLLED RELEASE TAB PO ONE (11:30)
--- NOTE | 2017-06-28 15:08 | HHI.GIFU ---
Subjective Remarks Pt is stable. No diarrhea or rectal bleeding. she fell yesterday and hit her head and had another MRI of brain that did not show any new lesions. I have again reviewed the CT scan of the abdomen and pelvis and there is very little evidence there of malignancy. No need for barium enema or colonoscopy. I discussed case with her two days ago and we agreed to hold off on the barium enema but we can now cancel it . Objective Vitals I&O Vital Signs Date Time Temp Pulse Resp B/P (MAP) Pulse Ox O2 Delivery O2 Flow Rate FiO2 06/28/17 12:00 65 06/28/17 12:00 97.8 65 14 104/59 (74) 95 06/28/17 11:49 93 21 06/28/17 08:00 96 Room Air 06/28/17 08:00 69 06/28/17 08:00 97.7 69 16 104/52 (69) 96 06/28/17 06:00 60 06/28/17 04:00 98.6 66 24 124/57 (79) 96 06/28/17 04:00 66 06/28/17 02:00 69 06/28/17 00:00 97.7 68 24 115/55 (75) 97 06/28/17 00:00 68 06/27/17 22:00 67 06/27/17 20:36 96 21 06/27/17 20:00 70 06/27/17 20:00 98.6 70 24 97/62 (74) 97 06/27/17 19:00 94 Room Air 06/27/17 18:00 79 06/27/17 16:00 98.3 73 22 119/57 (77) 99 06/27/17 16:00 73 I/O 06/27/17 06/27/17 06/27/17 06/28/17 06/28/17 06/28/17 06:59 14:59 22:59 06:59 14:59 22:59 Intake Total 290 ml 440 ml 0 ml 440 ml Output Total 251 ml Balance 290 ml 189 ml 0 ml 440 ml Intake Oral 240 ml 440 ml 0 ml 440 ml IV Total 50 ml Output Urine Total 250 ml Stool Total 1 ml # Voids 4 1 1 1 # Bowel Movements 1 0 0 Laboratory Laboratory Tests Test 06/27/17 21:50 06/28/17 04:27 Blood Gas Puncture Site LT RADIAL Blood Gas Patient Temperature 98.6 Blood Gas HCO3 27 Blood Gas Base Excess 3.3 Blood Gas Oxygen Saturation 94 Arterial Blood pH 7.45 Arterial Blood Partial Pressure CO2 40 Arterial Blood Partial Pressure O2 80 Arterial Blood Oxygen Content 17.2 Arterial Blood Carboxyhemoglobin 1.1 Arterial Blood Methemoglobin 1.0 Blood Gas Hemoglobin 13.0 Oxygen Delivery Device ROOM AIR Blood Gas Inspired Oxygen 21 White Blood Count 8.8 Red Blood Count 4.41 Hemoglobin 13.5 Hematocrit 40.1 Mean Corpuscular Volume 91.1 Mean Corpuscular Hemoglobin 30.7 Mean Corpuscular Hemoglobin Concent 33.7 Red Cell Distribution Width 14.4 Platelet Count 214 Mean Platelet Volume 10.4 Neutrophils (%) (Auto) 72.7 Lymphocytes (%) (Auto) 16.8 Monocytes (%) (Auto) 8.0 Eosinophils (%) (Auto) 1.6 Basophils (%) (Auto) 0.9 Neutrophils # (Auto) 6.4 Lymphocytes # (Auto) 1.5 Monocytes # (Auto) 0.7 Eosinophils # (Auto) 0.1 Basophils # (Auto) 0.1 CBC Comment DIFF FINAL Differential Comment Blood Urea Nitrogen 15 Creatinine 0.62 Random Glucose 84 Calcium Level 8.4 Phosphorus Level 3.8 Magnesium Level 2.0 Sodium Level 140 Potassium Level 3.5 Chloride Level 106 Carbon Dioxide Level 29.5 Anion Gap 5 Estimat Glomerular Filtration Rate 100 Phenytoin (Dilantin) Level 15.0 Date/Time Source Procedure Growth Status 06/27/17 05:45 Stool Stool Cryptosporidium Exam Pending Resulted 06/27/17 05:45 Stool Stool Stool Pus (KYLIE) - Final RARE WBC Resulted 06/27/17 05:45 Stool Stool Giardia Antigen ([facility]IE) Pending Resulted Imaging Current Medications Medications (Trade) Dose Ordered Sig/Doreen Route Start Time Stop Time Status Last Admin (NS Flush) 2 ml BID IV FLUSH 06/22/17 21:00 06/28/17 09:00 (NS Flush) 2 ml UNSCH PRN IV FLUSH 06/22/17 18:45 (NovoLOG SUPPLEMENTAL SCALE) 1 ACHS SQ 06/22/17 21:00 06/26/17 20:25 (D50w (Vial) Inj) 50 ml UNSCH PRN IV PUSH 06/22/17 18:45 (Glucagon Inj) 1 mg UNSCH PRN OTHER 06/22/17 18:45 (Tylenol) 650 mg Q4H PRN PO 06/22/17 18:45 (Zofran Inj) 4 mg Q6H PRN IVP 06/22/17 18:45 (Compazine Supp) 25 mg Q12H PRN RECTAL 06/22/17 18:45 (Tylenol) 650 mg Q6H PRN PO 06/22/17 18:45 (Percocet 5-325 Mg) 1 tab Q6H PRN PO 06/22/17 18:45 (Percocet 10-325 Mg) 1 tab Q6H PRN PO 06/22/17 18:45 (Morphine Inj) 2 mg Q3H PRN IV 06/22/17 18:45 (Morphine Inj) 4 mg Q3H PRN IV 06/22/17 18:45 (Narcan Inj) 0.4 mg UNSCH PRN IV 06/22/17 18:45 (Pari-Colace) 1 tab BID PO 06/22/17 21:00 06/26/17 20:25 (Milk Of Magnesia Liq) 30 ml Q12H PRN PO 06/22/17 18:45 (Senokot) 17.2 mg Q12H PRN PO 06/22/17 18:45 (Dulcolax Supp) 10 mg DAILY PRN RECTAL 06/22/17 18:45 (Lactulose Liq) 30 ml DAILY PRN PO 06/22/17 18:45 (Cerebyx Inj) 200 mgpe Q12H IV 06/24/17 00:00 06/28/17 12:40 (Duoneb Neb) 1 ampule Q6HR NEB PRN NEB 06/27/17 20:45 Physical Exam HEENT: Normocephalic; atraumatic; no jaundice. CHEST: CTA CARDIAC: RRR. ABDOMEN: Soft, nondistended, nontender; no hepatosplenomegaly; bowel sounds are present in all four quadrants. EXTREMITIES: No clubbing, cyanosis, or edema. SKIN: Normal; no rash; no jaundice. DISK SHARPENER: Aphasic Assessment and Plan Plan ASSESSMENT: - Abnormal imaging of sigmoid colon. CT thorax/abdomen/pelvis was done to evaluate for any metastatic disease that would make her hypercoagulable. CT scan of the thorax/abdomen/pelvis (06/24/17) and this revealed the thoracic aorta is intact, suspected bibasilar areas of atelectasis or consolidation being worse on the left, small 0.5 cm pulmonary nodule at the left lower lung. This could be followed with a noncontrast CT examination in 6 months; thickening of the proximal sigmoid colon. This could be secondary to lack of distention and some degree of underlying hypertrophy. Underlying processes including some inflammation or a neoplasm cannot be excluded. The fat around the colon in this region appears normal. There are some scattered diverticula, hepatic steatosis, 5 mm pulmonary nodule seen at the left lower lobe. This is a solitary pulmonary nodule more full described on the CT of the chest report. GI was consulted for further evaluation of thickened sigmoid colon. Pt does have recent hx of diarrhea and is still having liquid stools. She denies hx of diverticulitis, but does have noted diverticula on exam. Afebrile. She did lose 10 lbs over a month, but was following a low carb diet for weight loss. No decreased appetite, abdominal pain or tenderness , bleeding. No fhx of cancer. Never had colonoscopy. D/W Dr. Whitt, would hold off on endoscopic evaluation for 4-6 weeks. AFP 3.0, CEA 2.2, Ca19-9 3.9. Stool studies ordered, but pt has not had any diarrhea. No abdominal pain. Plan for egd/ colonoscopy in 4-6 weeks when okay with neurology. - Recurrent CVA. Recent right medial occipital infarct on 06/17/17, now with acute ischemic left MCA stroke. Per neurology - Leukocytosis. Improved. - Hyperlipidemia, per attending. PLAN: - Heart healthy diet per ST recommendations - Stool for CDiff, C/S, O&P, Giardia if diarrhea - Monitor labs - ST/OT/PT - Per neurology, will need to hold on endoscopic evaluation for 4-6 weeks - Further recommendations to follow based on results of above - Once she recovers from stroke, in six weeks she could have barium enema or colonoscopy Jarrett Billy MD Jun 28, 2017 15:08
--- NOTE | 2017-06-28 17:41 | HHI.PR ---
Subjective Remarks doing well oob in chair s/p repeat ct today still some blood products/hematoma seen on the right. Objective Vital Signs Date Time Temp Pulse Resp B/P (MAP) Pulse Ox O2 Delivery O2 Flow Rate FiO2 06/28/17 16:00 83 06/28/17 16:00 98.2 83 14 114/55 (74) 98 06/28/17 12:00 65 06/28/17 12:00 97.8 65 14 104/59 (74) 95 06/28/17 11:49 93 21 06/28/17 08:00 96 Room Air 06/28/17 08:00 69 06/28/17 08:00 97.7 69 16 104/52 (69) 96 06/28/17 06:00 60 06/28/17 04:00 98.6 66 24 124/57 (79) 96 06/28/17 04:00 66 06/28/17 02:00 69 06/28/17 00:00 97.7 68 24 115/55 (75) 97 06/28/17 00:00 68 06/27/17 22:00 67 06/27/17 20:36 96 21 06/27/17 20:00 70 06/27/17 20:00 98.6 70 24 97/62 (74) 97 06/27/17 19:00 94 Room Air 06/27/17 18:00 79 I/O 06/27/17 06/27/17 06/27/17 06/28/17 06/28/17 06/28/17 07:00 15:00 23:00 07:00 15:00 23:00 Intake Total 290 ml 440 ml 0 ml 440 ml Output Total 251 ml Balance 290 ml 189 ml 0 ml 440 ml Intake Oral 240 ml 440 ml 0 ml 440 ml IV Total 50 ml Output Urine Total 250 ml Stool Total 1 ml # Voids 4 1 1 1 # Bowel Movements 1 0 0 Result Diagram: 06/28/1742606/28/17426 Procedures None Objective Remarks awake alert expressive aphasia motor intact Medications and IVs pht 15.0 Assessment and Plan Assessment and Plan stroke left mca and right sub ac occipital min hemor.conversion still seen on mri and ct hold antiplatlets for now repeat ct brain in 5 days cont pht pt-ot-st,rehab. scds in bed. Dr Whitt on ThursdayYolanda cano MD Jun 28, 2017 17:41
--- NOTE | 2017-06-28 19:12 | HHI.PR ---
Subjective Remarks Awake and responds to questions. Aphasic. Off o2 sat 96. No cough or wheezing. Objective Vital Signs Date Time Temp Pulse Resp B/P (MAP) Pulse Ox O2 Delivery O2 Flow Rate FiO2 06/28/17 16:00 83 06/28/17 16:00 98.2 83 14 114/55 (74) 98 06/28/17 12:00 65 06/28/17 12:00 97.8 65 14 104/59 (74) 95 06/28/17 11:49 93 21 06/28/17 08:00 96 Room Air 06/28/17 08:00 69 06/28/17 08:00 97.7 69 16 104/52 (69) 96 06/28/17 06:00 60 06/28/17 04:00 98.6 66 24 124/57 (79) 96 06/28/17 04:00 66 06/28/17 02:00 69 06/28/17 00:00 97.7 68 24 115/55 (75) 97 06/28/17 00:00 68 06/27/17 22:00 67 06/27/17 20:36 96 21 06/27/17 20:00 70 06/27/17 20:00 98.6 70 24 97/62 (74) 97 I/O 06/27/17 06/27/17 06/27/17 06/28/17 06/28/17 06/28/17 06:59 14:59 22:59 06:59 14:59 22:59 Intake Total 290 ml 440 ml 0 ml 440 ml Output Total 251 ml Balance 290 ml 189 ml 0 ml 440 ml Intake Oral 240 ml 440 ml 0 ml 440 ml IV Total 50 ml Output Urine Total 250 ml Stool Total 1 ml # Voids 4 1 1 1 1 # Bowel Movements 1 0 0 Result Diagram: 06/28/177 06/28/17 0427 Procedures None Objective Remarks GENERAL: This is a middle-aged averagely built white female who is awake and somewhat lethargic but moving her left extremities fairly well.She is in no acute distress. No pallor or cyanosis. No icterus or peripheral edema. HEENT: Head normocephalic. Pupils are reactive. Tongue was moist. Throat is clear. Nasal mucosa is clear. NECK: Supple without venous distension. No bruits or thyroid enlargement. CHEST: Equal movements. Good breath sounds bilaterally with No crackles. HEART: Sounds are regular S1-S2. No murmur. No S3. ABDOMEN: Abdomen is soft, nontender. No organomegaly. Bowel sounds are active. EXTREMITIES: No edema. Peripheral pulses are well felt. NEURO: The patient has some weakness of the right extremities. SKIN: Skin was dry and cool. Assessment and Plan Assessment and Plan IMPRESSION 1. Left pulmonary nodule, etiology undetermined. 2. Basilar atelectasis. 3. History of recent occipital stroke and infarction involving the left MCA territory. 4. Probable underlying obstructive lung disease. Plan : 1. Will get PFT in am. 2. IS at bedside q2h. 3. Nebs qid prn with duoneb. 4. Will get F/U CT chest as OP in 3 mths. 5. Chest Xray this week to Eval atelectasis 6. To rehab when OK with neurology Itzel Murphy MD Jun 28, 2017 19:12
[2017-06-29] VITALS (9 sets, daily range): BP systolic 100–123; BP diastolic 55–72; PULSE 69–86; RESP 17–20; TEMP 97.8–98.6; O2SAT 93–98
[2017-06-29] MEDS: FOSPHENYTOIN SODIUM 100 MG PE/2 ML VIAL IV SCH (00:03)
[2017-06-29] MEDS: INSULIN ASPART SUPPLEMENTAL SCALE SQ SCH ×4 (07:00→20:44)
--- NOTE | 2017-06-29 08:22 | HHI.PR ---
Subjective Remarks This is a pleasant 57 y/o Female with recent CVA 06/17/17 with chronic headaches was brought in to ER with Right Hemiparesis and unable to speak she was discharged Home 06/20/17 on Aspirin and Lipitor, she was found her on the floor, not moving and non verbal. He states since she was discharged she was feeling fine, no complaints at home, she was walking around and seemed normal. Patient is non verbal. 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 discussed with patient and her relatives in the room. 06/24: Seen in her bedroom in the presence of her Father Michael Sam, Hannah Slade, her brother and sister, they already discussed with Neurology specialist Doctor Jose Eduardo, he suspected Aortic Arch atheroembolic event CECI reviewed, probable post stroke Seizures started on Cerebyx yesterday, recommended to repeat CT brain and Chest and Abdomen, to look for aortic Arch rule out mass that could cause Hypercoagulable state, she will need inpatient rehab, no blood thinners, also contemplated ICU transfer. 06/25: Stable in her bedroom, already seen by Neurology specialist in am today doing better, she was able to move to the chair PT an OT to work with her during the afternoon, had small nodule on Chest area for follow up in six months as per guideline nodules below [address] brain with colon thickening asked for GI specialist consult. 06/26: Seen by GI specialist recommended due to patient without Colonoscopy to hold for this procedure for 4 to 6 weeks, tumor markers asked, EGD and Colonoscopy in 4 to 6 weeks, asked for Stool for C Diff, C/S, Giardia, LINUS, AFP , Ca19-9, seen in her bedroom, discussed with her Mr. Harinder Hills, the patient does not need the March cath removed, also will discontinue IV fluids she is eating and drinking well. was unable to take her Potassium chloride pill switch to liquid form and follow Potassium level at 1400 hours today. 06/27: Patient seen in her bedroom in the presence of Nurse Miss Neves and her Mr. Harinder Hills. as per and nurse the patient fell yesterday at the restroom, she states she hit her head and today has More difficulty to Speak as per her she is only able to pronounce two words but from yesterday denoted some improvement but today is the same as before, was contacted Doctor Fullop and recommended to perform and MRI of the Brain and follow now. 06/28: Seen in her bedroom, no complaint, design engineering specialist following, Left Pulmonary Nodule, recommended PFTs for tomorrow in am, follow up Chest CT as outpatient in 3 months. recommended for rehab when okay with Neurology. Neurology specialist following, recommended to continue on hold for antiplatelets for now due to hemorrhagic conversion, not yet cleared for Rehab. 06/29: Stable in her bedroom in the presence of her Sister, no nausea, vomit or diarrhea. awaiting final recommendations by Neurology to discharge to Inpatient Rehabilitation. Objective Vital Signs Date Time Temp Pulse Resp B/P (MAP) Pulse Ox O2 Delivery O2 Flow Rate FiO2 06/29/17 06:01 98.1 72 20 106/57 (73) 95 06/29/17 04:00 71 06/29/17 04:00 97.8 71 20 108/55 (72) 95 06/29/17 02:00 80 06/29/17 00:00 98.5 73 17 123/58 (79) 97 06/29/17 00:00 73 06/28/17 22:00 70 06/28/17 20:00 98.4 69 20 94/46 (62) 95 06/28/17 20:00 69 06/28/17 19:43 97 21 06/28/17 19:00 95 Room Air 06/28/17 16:00 83 06/28/17 16:00 98.2 83 14 114/55 (74) 98 06/28/17 12:00 65 06/28/17 12:00 97.8 65 14 104/59 (74) 95 06/28/17 11:49 93 21 I/O 06/28/17 06/28/17 06/28/17 06/29/17 06/29/17 06/29/17 07:00 15:00 23:00 07:00 15:00 23:00 Intake Total 0 ml 440 ml Balance 0 ml 440 ml Intake Oral 0 ml 440 ml # Voids 1 1 1 # Bowel Movements 0 0 Result Diagram: 06/28/1742606/28/17426 Imaging Last Impressions Head CT 06/28/17 0800 Signed Impressions: Service Date/Time: Wednesday, June 28, 2017 08:14 - CONCLUSION: 1. Subacute infarct right occipital lobe, and acute infarct left MCA territory with hematoma identified. There is mild mass effect. Pedro Phillips MD Chest X-Ray 06/28/17 0600 Signed Impressions: Service Date/Time: Wednesday, June 28, 2017 04:51 - CONCLUSION: No acute disease. Michael Campbell MD Brain MRI 06/27/17 0000 Signed Impressions: Service Date/Time: Tuesday, June 27, 2017 12:24 - CONCLUSION: Evolving changes in the brain that are probably all related to an ischemic embolic event. I don't see it in progression to suggest a subsequent embolic event. CTA of the carotids show no source of emboli; Further evaluation is suggested to exclude such. Followup MRI in 4-6 weeks of contrast would be of benefit to be sure these findings are evolving as we expect ischemic changes to do. Ronal Hong MD FACR Chest CT 06/24/17 0000 Signed Impressions: Service Date/Time: Saturday, June 24, 2017 19:40 - CONCLUSION: 1. The thoracic aorta is intact. 2. Suspected bibasilar areas of atelectasis or consolidation being worse on the left. 3. Small 0.5 cm pulmonary nodule at the left lower lung. This could be followed with a noncontrast CT examination in 6 months. Charlie Chand MD Abdomen/Pelvis CT 06/24/17 0000 Signed Impressions: Service Date/Time: Saturday, June 24, 2017 19:40 - CONCLUSION: 1. Thickening of the proximal sigmoid colon. This could be secondary to lack of distension and some degree of underlying hypertrophy. Underlying processes including some inflammation or a neoplasm cannot be excluded. The fat around the colon in this region appears normal. There are some scattered diverticula. 2. Hepatic steatosis. 3. 5 mm pulmonary nodule seen at the left lower lobe. This is a solitary pulmonary nodule more fully described on the CT of the chest report. Charlie Chand MD Head Magnetic Resonance Angiography 06/23/17 0000 Signed Impressions: Service Date/Time: Friday, June 23, 2017 08:24 - CONCLUSION: Normal examination. Flow is now seen within the right posterior cerebral artery peripheral distribution. Keron Wei Jr., MD Procedures None Other Results Laboratory Tests Test 06/22/17 16:54 06/23/17 06:08 06/23/17 15:45 06/23/17 21:41 Prothrombin Time 10.8 SEC Prothromb Time International Ratio 1.0 RATIO Activated Partial Thromboplast Time 24.7 SEC Urine Color YELLOW Urine Turbidity HAZY Urine pH 5.0 Urine Specific [place] 1.015 Urine Protein NEG mg/dL Urine Glucose (UA) NEG mg/dL Urine Ketones NEG mg/dL Urine Occult Blood NEG Urine Nitrite NEG Urine Bilirubin NEG Urine Urobilinogen LESS THAN 2.0 MG/DL Urine Leukocyte Esterase NEG Urine RBC LESS THAN 1 /hpf Urine WBC 1 /hpf Urine Squamous Epithelial Cells 1 /hpf Urine Mucus FEW /lpf Microscopic Urinalysis Comment CULT NOT INDICATED Hemoglobin A1c 5.8 % Blood Urea Nitrogen 12 MG/DL Creatinine 0.66 MG/DL Random Glucose 91 MG/DL Total Protein 7.3 GM/DL Albumin 3.6 GM/DL Calcium Level 8.6 MG/DL Phosphorus Level 1.9 MG/DL Magnesium Level 2.1 MG/DL Alkaline Phosphatase 94 U/L Aspartate Amino Transf (AST/SGOT) 29 U/L Alanine Aminotransferase (ALT/SGPT) 34 U/L Total Bilirubin 0.6 MG/DL Sodium Level 143 MEQ/L Potassium Level 3.5 MEQ/L Chloride Level 110 MEQ/L Carbon Dioxide Level 25.1 MEQ/L Triglycerides Level 91 MG/DL Cholesterol Level 168 MG/DL LDL Cholesterol 106 MG/DL HDL Cholesterol 44.2 MG/DL Cholesterol/HDL Ratio 3.80 RATIO Free Thyroxine 1.14 NG/DL Thyroid Stimulating Hormone 3rd Gen 1.380 uIU/ML Anti-Nuclear Antibody Screen NEG Rapid Plasma Reagin NON-REACTIVE Total Creatine Kinase 119 U/L Troponin I 0.07 NG/ML Test 06/25/17 05:00 06/25/17 21:37 06/26/17 17:00 06/27/17 05:37 Nasal Screen MRSA (PCR) MRSA NOT DETECTED Tumor Marker Alpha Fetoprotein 3.0 NG/ML Carcinoembryonic Antigen 2.2 NG/ML CA 19-9 Antigen 3.9 U/ML Test 06/27/17 05:45 06/27/17 21:50 06/28/17 04:27 06/29/17 05:30 Stool C. difficile Toxin (PCR) NEGATIVE Stl C. difficile Toxin Epiderm 027 PRESUMPTIVE NEGATIVE Blood Gas Puncture Site LT RADIAL Blood Gas Patient Temperature 98.6 Blood Gas HCO3 27 mmol/L Blood Gas Base Excess 3.3 mmol/L Blood Gas Oxygen Saturation 94 % Arterial Blood pH 7.45 Arterial Blood Partial Pressure CO2 40 mmHg Arterial Blood Partial Pressure O2 80 mmHg Arterial Blood Oxygen Content 17.2 Vol % Arterial Blood Carboxyhemoglobin 1.1 % Arterial Blood Methemoglobin 1.0 % Blood Gas Hemoglobin 13.0 G/DL Oxygen Delivery Device ROOM AIR Blood Gas Inspired Oxygen 21 % White Blood Count 8.8 TH/MM3 Red Blood Count 4.41 MIL/MM3 Hemoglobin 13.5 GM/DL Hematocrit 40.1 % Mean Corpuscular Volume 91.1 FL Mean Corpuscular Hemoglobin 30.7 PG Mean Corpuscular Hemoglobin Concent 33.7 % Red Cell Distribution Width 14.4 % Platelet Count 214 TH/MM3 Mean Platelet Volume 10.4 FL Neutrophils (%) (Auto) 72.7 % Lymphocytes (%) (Auto) 16.8 % Monocytes (%) (Auto) 8.0 % Eosinophils (%) (Auto) 1.6 % Basophils (%) (Auto) 0.9 % Neutrophils # (Auto) 6.4 TH/MM3 Lymphocytes # (Auto) 1.5 TH/MM3 Monocytes # (Auto) 0.7 TH/MM3 Eosinophils # (Auto) 0.1 TH/MM3 Basophils # (Auto) 0.1 TH/MM3 CBC Comment DIFF FINAL Differential Comment Blood Urea Nitrogen 15 MG/DL Creatinine 0.62 MG/DL Random Glucose 84 MG/DL Calcium Level 8.4 MG/DL Phosphorus Level 3.8 MG/DL Magnesium Level 2.0 MG/DL Sodium Level 140 MEQ/L Potassium Level 3.5 MEQ/L Chloride Level 106 MEQ/L Carbon Dioxide Level 29.5 MEQ/L Anion Gap 5 MEQ/L Estimat Glomerular Filtration Rate 100 ML/MIN Phenytoin (Dilantin) Level 18.6 MCG/ML Objective Remarks GENERAL: This is a well-nourished, able to speak two words. SKIN: No rashes, ecchymoses or lesions. Cool and dry. HEAD: Atraumatic. Normocephalic. no evidence of trauma on her head. EYES: Pupils equal round and slight reaction. ENT: Nose without bleeding, purulent drainage or septal hematoma. Airway patent. NECK: Trachea midline. No JVD or lymphadenopathy. Supple, nontender, no meningeal signs. CARDIOVASCULAR: Regular rate and rhythm without murmurs, gallops, or rubs. RESPIRATORY: Clear to auscultation. Breath sounds equal bilaterally. No wheezes , rales, or rhonchi. GASTROINTESTINAL: Abdomen soft, non-tender, nondistended. MUSCULOSKELETAL: Extremities without clubbing, cyanosis, or edema. No joint tenderness, effusion, or edema noted. NEUROLOGICAL: Awake and non verbal. moving four extremities. aphasia. Medications and IVs Current Medications Medications (Trade) Dose Ordered Sig/Doreen Route Start Time Stop Time Status Last Admin (NS Flush) 2 ml BID IV FLUSH 06/22/17 21:00 06/28/17 20:57 (NS Flush) 2 ml UNSCH PRN IV FLUSH 06/22/17 18:45 (NovoLOG SUPPLEMENTAL SCALE) 1 ACHS SQ 06/22/17 21:00 06/26/17 20:25 (D50w (Vial) Inj) 50 ml UNSCH PRN IV PUSH 06/22/17 18:45 (Glucagon Inj) 1 mg UNSCH PRN OTHER 06/22/17 18:45 (Tylenol) 650 mg Q4H PRN PO 06/22/17 18:45 (Zofran Inj) 4 mg Q6H PRN IVP 06/22/17 18:45 (Compazine Supp) 25 mg Q12H PRN RECTAL 06/22/17 18:45 (Tylenol) 650 mg Q6H PRN PO 06/22/17 18:45 (Percocet 5-325 Mg) 1 tab Q6H PRN PO 06/22/17 18:45 (Percocet 10-325 Mg) 1 tab Q6H PRN PO 06/22/17 18:45 (Morphine Inj) 2 mg Q3H PRN IV 06/22/17 18:45 (Morphine Inj) 4 mg Q3H PRN IV 06/22/17 18:45 (Narcan Inj) 0.4 mg UNSCH PRN IV 8/28/17 18:45 (Pari-Colace) 1 tab BID PO 06/22/17 21:00 06/26/17 20:25 (Milk Of Magnesia Liq) 30 ml Q12H PRN PO 06/22/17 18:45 (Senokot) 17.2 mg Q12H PRN PO 06/22/17 18:45 (Dulcolax Supp) 10 mg DAILY PRN RECTAL 06/22/17 18:45 (Lactulose Liq) 30 ml DAILY PRN PO 06/22/17 18:45 (Duoneb Neb) 1 ampule Q6HR NEB PRN NEB 06/27/17 20:45 (Dilantin) 100 mg Q8H PO 06/29/17 09:00 A/P Assessment and Plan 57 y/o female with a history of a recent CVA 06/17/2017 and chronic headaches was brought to the ED with right hemiparesis and unable to speak. She was discharged home on Thursday and was given aspirin and Lipitor. Per the patient' s she was last seen normal at 8am this morning when he left for work, he states several people tried to call her but she did not answer, when he returned from work he found her on the floor, not moving and non verbal. Left Infarction involving The left MCA territory with scattered areas of Hemorrhage within the infarct bed, Subacute infarct involving the right occipital lobe, The Multifocality call attention about Embolic Event. continue on Hold her antiplatelets. 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 new CT brain no change from yesterday Stable improving condition, today transfer to the chair by herself , will work with Physical Therapy and Occupational therapy later today, found Lung Nodule less than 6 mm agree with follow up in six months, also has Colon thickening asked for GI specialist consult. Seen by GI specialist recommended due to patient without Colonoscopy to hold for this procedure for 4 to 6 weeks, tumor markers asked, EGD and Colonoscopy in 4 to 6 weeks, asked for Stool for C Diff, C /S, Giardia, LINUS, AFP, Ca19-9. Pulmonary Nodule for follow up as outpatient as per design engineering specialist. HLD, chronic -High intensity Statin, LDL 108 need to be below 70. Leukocytosis, likely reactive, Improved, UA negative for infection. Severe Tobacco dependence strongly recommended to stop smoking. started on Bronchodilator, Mucolytic and incentive spirometry. Medical Non compliance the patient continue smoking even having this pathology. Hypokalemia Replaced. Status post fall asked by Neurology for MRI brain at this time order placed by me. DVT prophylaxis: SCDs, hold chemical for now for possible hemorrhage Discussed Condition With Patient and her Sister in the room . all questions answered to the best of my abilities. Discharge Planning Already Set for CIR starting next week on Thursday or Thursday. Michael Brooks MD Jun 29, 2017 08:22
[2017-06-29] MEDS: SODIUM CHLORIDE 0.9% FLUSH 5 ML FLUSH IV FLUSH SCH ×2 (09:00→20:44)
[2017-06-29] MEDS: DOCUSATE SODIUM 50 MG/SENNA 8.6 MG TAB PO SCH ×2 (09:00→20:44)
[2017-06-29] MEDS: PHENYTOIN SODIUM 100 MG CAP PO SCH ×2 (09:09→17:01)
[2017-06-30] MEDS: PHENYTOIN SODIUM 100 MG CAP PO SCH (00:21)
[2017-06-30 00:30] VITALS: BP 100/52; PULSE 77; RESP 19; TEMP 98.1; O2SAT 94
[2017-06-30 04:40] VITALS: BP 99/58; PULSE 80; RESP 18; TEMP 98.8; O2SAT 96
[2017-06-30] MEDS: INSULIN ASPART SUPPLEMENTAL SCALE SQ SCH ×2 (07:00→10:55)
[2017-06-30 08:05] VITALS: BP 121/65; PULSE 75; RESP 18; TEMP 98.1; O2SAT 96
--- NOTE | 2017-06-30 08:15 | HHI.PR ---
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 rehab doctors can follow levels and make further adjustments if needed repeat in 1 week; if reduced/resolved ich, then start aspirin 81mg qdaily f/u mrv brain appreciate heme/pulm/gi services rehab planning today to yainra from neuro d/w pt and spouse. answered their questions (2) Acute right [employer]AL [employer]OX [employer] stroke ICD Codes: I63.531 - Cerebral infarction due to unspecified occlusion or stenosis of right posterior cerebral artery Status: Acute (3) Tobacco consumption ICD Codes: Z72.0 - Tobacco use Status: Resolved (4) HLD (hyperlipidemia) ICD Codes: E78.5 - Hyperlipidemia, unspecified Subjective Subjective Comments No acute events reported sleepy after dilantin making good progress; spouse/pt interested in rehab sneha No headache No chest pain No dyspnea Active Medications Current Medications Medications (Trade) Dose Ordered Sig/Doreen Route Start Time Stop Time Status Last Admin (NS Flush) 2 ml BID IV FLUSH 06/22/17 21:00 06/29/17 20:44 (NS Flush) 2 ml UNSCH PRN IV FLUSH 06/22/17 18:45 (NovoLOG SUPPLEMENTAL SCALE) 1 ACHS SQ 06/22/17 21:00 06/26/17 20:25 (D50w (Vial) Inj) 50 ml UNSCH PRN IV PUSH 06/22/17 18:45 (Glucagon Inj) 1 mg UNSCH PRN OTHER 06/22/17 18:45 (Tylenol) 650 mg Q4H PRN PO 06/22/17 18:45 (Zofran Inj) 4 mg Q6H PRN IVP 06/22/17 18:45 (Compazine Supp) 25 mg Q12H PRN RECTAL 06/22/17 18:45 (Tylenol) 650 mg Q6H PRN PO 06/22/17 18:45 (Percocet 5-325 Mg) 1 tab Q6H PRN PO 06/22/17 18:45 (Percocet 10-325 Mg) 1 tab Q6H PRN PO 06/22/17 18:45 (Morphine Inj) 2 mg Q3H PRN IV 06/22/17 18:45 (Morphine Inj) 4 mg Q3H PRN IV 06/22/17 18:45 (Narcan Inj) 0.4 mg UNSCH PRN IV 06/22/17 18:45 (Pari-Colace) 1 tab BID PO 06/22/17 21:00 06/29/17 20:44 (Milk Of Magnesia Liq) 30 ml Q12H PRN PO 06/22/17 18:45 (Senokot) 17.2 mg Q12H PRN PO 06/22/17 18:45 (Dulcolax Supp) 10 mg DAILY PRN RECTAL 06/22/17 18:45 (Lactulose Liq) 30 ml DAILY PRN PO 06/22/17 18:45 (Duoneb Neb) 1 ampule Q6HR NEB PRN NEB 06/27/17 20:45 (Dilantin) 100 mg Q8H PO 06/29/17 09:00 06/30/17 00:21 Allergies Allergies Coded Allergies Penicillins (Verified Allergy, Unknown, 06/15/17) Sulfa (Sulfonamide Antibiotics) (Verified Allergy, Unknown, 06/15/17) Review of Systems All other ROS: ROS reviewed as documented in chart Exam I&O / VS Vital Signs Date Time Temp Pulse Resp B/P (MAP) Pulse Ox O2 Delivery O2 Flow Rate FiO2 06/30/17 08:05 98.1 75 18 121/65 (83) 96 06/30/17 04:40 98.8 80 18 99/58 (72) 96 06/30/17 00:30 98.1 77 19 100/52 (68) 94 06/29/17 21:30 21 06/29/17 21:00 98.6 84 18 109/56 (73) 95 06/29/17 20:00 84 06/29/17 16:36 98.0 86 18 100/72 (81) 93 06/29/17 12:19 98.0 69 18 116/56 (76) 98 06/29/17 08:31 98.1 69 18 103/55 (71) 96 Neurologic: Alert Exam Comments alert, sitting up, speaks 1-3 words; mixed aphasia expressive >comprehensive, smiling, left hh, rt hemiparesis 3-4/5, able to stand, 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 Complete 06/27/17 05:45 Stool Stool Stool Pus ([facility]) - Final RARE WBC Complete 06/27/17 05:45 Stool Stool Giardia Antigen ([facility]) - Final NEGATIVE - NO GIARDIA ANTIGEN DETECTE... Complete Problem Qualifiers (1) HLD (hyperlipidemia): Qualified Codes: E78.2 - Mixed hyperlipidemia Elton Whitt MD Jun 30, 2017 08:15
--- NOTE | 2017-06-30 08:56 | HHI.PR ---
Subjective Remarks This is a pleasant 57 y/o Female with recent CVA 06/17/17 with chronic headaches was brought in to ER with Right Hemiparesis and unable to speak she was discharged Home 06/20/17 on Aspirin and Lipitor, she was found her on the floor, not moving and non verbal. He states since she was discharged she was feeling fine, no complaints at home, she was walking around and seemed normal. Patient is non verbal. 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 discussed with patient and her relatives in the room. 06/24: Seen in her bedroom in the presence of her Father Michael Sam, Hannah Slade, her brother and sister, they already discussed with Neurology specialist Doctor Jose Eduardo, he suspected Aortic Arch atheroembolic event LEVY reviewed, probable post stroke Seizures started on Cerebyx yesterday, recommended to repeat CT brain and Chest and Abdomen, to look for aortic Arch rule out mass that could cause Hypercoagulable state, she will need inpatient rehab, no blood thinners, also contemplated ICU transfer. 06/25: Stable in her bedroom, already seen by Neurology specialist in am today doing better, she was able to move to the chair PT an OT to work with her during the afternoon, had small nodule on Chest area for follow up in six months as per guideline nodules below [address] brain with colon thickening asked for GI specialist consult. 06/26: Seen by GI specialist recommended due to patient without Colonoscopy to hold for this procedure for 4 to 6 weeks, tumor markers asked, EGD and Colonoscopy in 4 to 6 weeks, asked for Stool for C Diff, C/S, Giardia, LINUS, AFP , Ca19-9, seen in her bedroom, discussed with her Mr. Harinder Hills, the patient does not need the March cath removed, also will discontinue IV fluids she is eating and drinking well. was unable to take her Potassium chloride pill switch to liquid form and follow Potassium level at 1400 hours today. 06/27: Patient seen in her bedroom in the presence of Nurse Miss Neves and her Mr. Harinder Hills. as per and nurse the patient fell yesterday at the restroom, she states she hit her head and today has More difficulty to Speak as per her she is only able to pronounce two words but from yesterday denoted some improvement but today is the same as before, was contacted Doctor Fullop and recommended to perform and MRI of the Brain and follow now. 06/28: Seen in her bedroom, no complaint, affirmative action specialist following, Left Pulmonary Nodule, recommended PFTs for tomorrow in am, follow up Chest CT as outpatient in 3 months. recommended for rehab when okay with Neurology. Neurology specialist following, recommended to continue on hold for antiplatelets for now due to hemorrhagic conversion, not yet cleared for Rehab. 06/29: Stable in her bedroom in the presence of her Sister, awaiting final recommendations by Neurology to discharge to Inpatient Rehabilitation. 06/30: Discussed with patient and her in the room okay to transfer to [facility], will go at this time once cleared by Neurology specialist, No nausea, vomit or diarrhea. 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 rehab doctors can follow levels and make further adjustments if needed repeat in 1 week; if reduced/resolved ich, then start aspirin 81mg qdaily f/u mrv brain appreciate heme/pulm/gi services rehab planning today to yanira from neuro d/w pt and spouse. answered their questions I speak with nurse and He states Doctor Francisco Whitt gave him the Order to clear the patient from Neurology standpoint to be transferred to [facility] I place the order at this time. 10:44 AM. Objective Vital Signs Date Time Temp Pulse Resp B/P (MAP) Pulse Ox O2 Delivery O2 Flow Rate FiO2 06/30/17 08:05 98.1 75 18 121/65 (83) 96 06/30/17 04:40 98.8 80 18 99/58 (72) 96 06/30/17 00:30 98.1 77 19 100/52 (68) 94 06/29/17 21:30 21 06/29/17 21:00 98.6 84 18 109/56 (73) 95 06/29/17 20:00 84 06/29/17 16:36 98.0 86 18 100/72 (81) 93 06/29/17 12:19 98.0 69 18 116/56 (76) 98 I/O 06/29/17 06/29/17 06/29/17 06/30/17 06/30/17 06/30/17 06:59 14:59 22:59 06:59 14:59 22:59 Intake Total 880 ml Balance 880 ml Intake Oral 880 ml # Voids 3 # Bowel Movements 0 Result Diagram: 06/28/17 0427 06/28/17 0427 Imaging Last Impressions Head CT 06/28/17 0800 Signed Impressions: Service Date/Time: Wednesday, June 28, 2017 08:14 - CONCLUSION: 1. Subacute infarct right occipital lobe, and acute infarct left MCA territory with hematoma identified. There is mild mass effect. Pedro Phillips MD Chest X-Ray 06/28/17 0600 Signed Impressions: Service Date/Time: Wednesday, June 28, 2017 04:51 - CONCLUSION: No acute disease. Michael Campbell MD Brain MRI 06/27/17 0000 Signed Impressions: Service Date/Time: Tuesday, June 27, 2017 12:24 - CONCLUSION: Evolving changes in the brain that are probably all related to an ischemic embolic event. I don't see it in progression to suggest a subsequent embolic event. CTA of the carotids show no source of emboli; Further evaluation is suggested to exclude such. Followup MRI in 4-6 weeks of contrast would be of benefit to be sure these findings are evolving as we expect ischemic changes to do. Ronal Hong MD FACR Chest CT 06/24/17 0000 Signed Impressions: Service Date/Time: Saturday, June 24, 2017 19:40 - CONCLUSION: 1. The thoracic aorta is intact. 2. Suspected bibasilar areas of atelectasis or consolidation being worse on the left. 3. Small 0.5 cm pulmonary nodule at the left lower lung. This could be followed with a noncontrast CT examination in 6 months. Charlie Chand MD Abdomen/Pelvis CT 06/24/17 0000 Signed Impressions: Service Date/Time: Saturday, June 24, 2017 19:40 - CONCLUSION: 1. Thickening of the proximal sigmoid colon. This could be secondary to lack of distension and some degree of underlying hypertrophy. Underlying processes including some inflammation or a neoplasm cannot be excluded. The fat around the colon in this region appears normal. There are some scattered diverticula. 2. Hepatic steatosis. 3. 5 mm pulmonary nodule seen at the left lower lobe. This is a solitary pulmonary nodule more fully described on the CT of the chest report. Charlie Chand MD Head Magnetic Resonance Angiography 06/23/17 0000 Signed Impressions: Service Date/Time: Friday, June 23, 2017 08:24 - CONCLUSION: Normal examination. Flow is now seen within the right posterior cerebral artery peripheral distribution. Keron Wei Jr., MD Procedures None Other Results Laboratory Tests Test 06/22/17 16:54 06/23/17 06:08 06/23/17 15:45 06/23/17 21:41 Prothrombin Time 10.8 SEC Prothromb Time International Ratio 1.0 RATIO Activated Partial Thromboplast Time 24.7 SEC Urine Color YELLOW Urine Turbidity HAZY Urine pH 5.0 Urine Specific [place] 1.015 Urine Protein NEG mg/dL Urine Glucose (UA) NEG mg/dL Urine Ketones NEG mg/dL Urine Occult Blood NEG Urine Nitrite NEG Urine Bilirubin NEG Urine Urobilinogen LESS THAN 2.0 MG/DL Urine Leukocyte Esterase NEG Urine RBC LESS THAN 1 /hpf Urine WBC 1 /hpf Urine Squamous Epithelial Cells 1 /hpf Urine Mucus FEW /lpf Microscopic Urinalysis Comment CULT NOT INDICATED Hemoglobin A1c 5.8 % Blood Urea Nitrogen 12 MG/DL Creatinine 0.66 MG/DL Random Glucose 91 MG/DL Total Protein 7.3 GM/DL Albumin 3.6 GM/DL Calcium Level 8.6 MG/DL Phosphorus Level 1.9 MG/DL Magnesium Level 2.1 MG/DL Alkaline Phosphatase 94 U/L Aspartate Amino Transf (AST/SGOT) 29 U/L Alanine Aminotransferase (ALT/SGPT) 34 U/L Total Bilirubin 0.6 MG/DL Sodium Level 143 MEQ/L Potassium Level 3.5 MEQ/L Chloride Level 110 MEQ/L Carbon Dioxide Level 25.1 MEQ/L Triglycerides Level 91 MG/DL Cholesterol Level 168 MG/DL LDL Cholesterol 106 MG/DL HDL Cholesterol 44.2 MG/DL Cholesterol/HDL Ratio 3.80 RATIO Free Thyroxine 1.14 NG/DL Thyroid Stimulating Hormone 3rd Gen 1.380 uIU/ML Anti-Nuclear Antibody Screen NEG Rapid Plasma Reagin NON-REACTIVE Total Creatine Kinase 119 U/L Troponin I 0.07 NG/ML Test 06/25/17 05:00 06/25/17 21:37 06/26/17 17:00 06/27/17 05:37 Nasal Screen MRSA (PCR) MRSA NOT DETECTED Tumor Marker Alpha Fetoprotein 3.0 NG/ML Carcinoembryonic Antigen 2.2 NG/ML CA 19-9 Antigen 3.9 U/ML Hexagonal Phase Confirmation Test 06/27/17 05:45 06/27/17 21:50 06/28/17 04:27 06/29/17 05:30 Stool C. difficile Toxin (PCR) NEGATIVE Stl C. difficile Toxin Epiderm 027 PRESUMPTIVE NEGATIVE Blood Gas Puncture Site LT RADIAL Blood Gas Patient Temperature 98.6 Blood Gas HCO3 27 mmol/L Blood Gas Base Excess 3.3 mmol/L Blood Gas Oxygen Saturation 94 % Arterial Blood pH 7.45 Arterial Blood Partial Pressure CO2 40 mmHg Arterial Blood Partial Pressure O2 80 mmHg Arterial Blood Oxygen Content 17.2 Vol % Arterial Blood Carboxyhemoglobin 1.1 % Arterial Blood Methemoglobin 1.0 % Blood Gas Hemoglobin 13.0 G/DL Oxygen Delivery Device ROOM AIR Blood Gas Inspired Oxygen 21 % White Blood Count 8.8 TH/MM3 Red Blood Count 4.41 MIL/MM3 Hemoglobin 13.5 GM/DL Hematocrit 40.1 % Mean Corpuscular Volume 91.1 FL Mean Corpuscular Hemoglobin 30.7 PG Mean Corpuscular Hemoglobin Concent 33.7 % Red Cell Distribution Width 14.4 % Platelet Count 214 TH/MM3 Mean Platelet Volume 10.4 FL Neutrophils (%) (Auto) 72.7 % Lymphocytes (%) (Auto) 16.8 % Monocytes (%) (Auto) 8.0 % Eosinophils (%) (Auto) 1.6 % Basophils (%) (Auto) 0.9 % Neutrophils # (Auto) 6.4 TH/MM3 Lymphocytes # (Auto) 1.5 TH/MM3 Monocytes # (Auto) 0.7 TH/MM3 Eosinophils # (Auto) 0.1 TH/MM3 Basophils # (Auto) 0.1 TH/MM3 CBC Comment DIFF FINAL Differential Comment Blood Urea Nitrogen 15 MG/DL Creatinine 0.62 MG/DL Random Glucose 84 MG/DL Calcium Level 8.4 MG/DL Phosphorus Level 3.8 MG/DL Magnesium Level 2.0 MG/DL Sodium Level 140 MEQ/L Potassium Level 3.5 MEQ/L Chloride Level 106 MEQ/L Carbon Dioxide Level 29.5 MEQ/L Anion Gap 5 MEQ/L Estimat Glomerular Filtration Rate 100 ML/MIN Phenytoin (Dilantin) Level 18.6 MCG/ML Objective Remarks GENERAL: This is a well-nourished, able to speak two words. SKIN: No rashes, ecchymoses or lesions. Cool and dry. HEAD: Atraumatic. Normocephalic. no evidence of trauma on her head. EYES: Pupils equal round and slight reaction. ENT: Nose without bleeding, purulent drainage or septal hematoma. Airway patent. NECK: Trachea midline. No JVD or lymphadenopathy. Supple, nontender, no meningeal signs. CARDIOVASCULAR: Regular rate and rhythm without murmurs, gallops, or rubs. RESPIRATORY: Clear to auscultation. Breath sounds equal bilaterally. No wheezes , rales, or rhonchi. GASTROINTESTINAL: Abdomen soft, non-tender, nondistended. MUSCULOSKELETAL: Extremities without clubbing, cyanosis, or edema. No joint tenderness, effusion, or edema noted. NEUROLOGICAL: Awake and non verbal. moving four extremities. aphasia. Medications and IVs Current Medications Medications (Trade) Dose Ordered Sig/Doreen Route Start Time Stop Time Status Last Admin (NS Flush) 2 ml BID IV FLUSH 06/22/17 21:00 06/29/17 20:44 (NS Flush) 2 ml UNSCH PRN IV FLUSH 06/22/17 18:45 (NovoLOG SUPPLEMENTAL SCALE) 1 ACHS SQ 06/22/17 21:00 06/26/17 20:25 (D50w (Vial) Inj) 50 ml UNSCH PRN IV PUSH 06/22/17 18:45 (Glucagon Inj) 1 mg UNSCH PRN OTHER 06/22/17 18:45 (Tylenol) 650 mg Q4H PRN PO 06/22/17 18:45 (Zofran Inj) 4 mg Q6H PRN IVP 06/22/17 18:45 (Compazine Supp) 25 mg Q12H PRN RECTAL 06/22/17 18:45 (Tylenol) 650 mg Q6H PRN PO 06/22/17 18:45 (Percocet 5-325 Mg) 1 tab Q6H PRN PO 06/22/17 18:45 (Percocet 10-325 Mg) 1 tab Q6H PRN PO 06/22/17 18:45 (Morphine Inj) 2 mg Q3H PRN IV 06/22/17 18:45 (Morphine Inj) 4 mg Q3H PRN IV 06/22/17 18:45 (Narcan Inj) 0.4 mg UNSCH PRN IV 06/22/17 18:45 (Pari-Colace) 1 tab BID PO 06/22/17 21:00 06/29/17 20:44 (Milk Of Magnesia Liq) 30 ml Q12H PRN PO 06/22/17 18:45 (Senokot) 17.2 mg Q12H PRN PO 06/22/17 18:45 (Dulcolax Supp) 10 mg DAILY PRN RECTAL 06/22/17 18:45 (Lactulose Liq) 30 ml DAILY PRN PO 06/22/17 18:45 (Duoneb Neb) 1 ampule Q6HR NEB PRN NEB 06/27/17 20:45 (Dilantin) 300 mg HS PO 07/01/17 21:00 A/P Assessment and Plan 57 y/o female with a history of a recent CVA 06/17/2017 and chronic headaches was brought to the ED with right hemiparesis and unable to speak. She was discharged home on Thursday and was given aspirin and Lipitor. Per the patient' s she was last seen normal at 8am this morning when he left for work, he states several people tried to call her but she did not answer, when he returned from work he found her on the floor, not moving and non verbal. Left Infarction involving The left MCA territory with scattered areas of Hemorrhage within the infarct bed, Subacute infarct involving the right occipital lobe, The Multif[employer] call attention about Embolic Event. continue on Hold her antiplatelets. 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 new CT brain no change from yesterday Stable improving condition, today transfer to the chair by herself , will work with Physical Therapy and Occupational therapy later today, found Lung Nodule less than 6 mm agree with follow up in six months, also has Colon thickening asked for GI specialist consult. Seen by GI specialist recommended due to patient without Colonoscopy to hold for this procedure for 4 to 6 weeks, tumor markers asked, EGD and Colonoscopy in 4 to 6 weeks, asked for Stool for C Diff, C /S, Giardia, LINUS, AFP, Ca19-9. Pulmonary Nodule for follow up as outpatient as per affirmative action specialist. HLD, chronic -High intensity Statin, LDL 108 need to be below 70. Leukocytosis, likely reactive, Improved, UA negative for infection. Severe Tobacco dependence strongly recommended to stop smoking. started on Bronchodilator, Mucolytic and incentive spirometry. Medical Non compliance the patient continue smoking even having this pathology. Hypokalemia Replaced. Status post fall asked by Neurology for MRI brain at this time order placed by me. DVT prophylaxis: SCDs, hold chemical for now for possible hemorrhage Discussed Condition With Patient and in the room I asked the nurse to get the clearance from Neurology he was called by nurse and Neurology specialist Doctor all questions answered to the best of my abilities. Discharge Planning Already Set for CIR starting next week on Thursday or Thursday. Michael Brooks MD Jun 30, 2017 08:56
[2017-06-30] MEDS: SODIUM CHLORIDE 0.9% FLUSH 5 ML FLUSH IV FLUSH SCH (09:00)
[2017-06-30] MEDS: DOCUSATE SODIUM 50 MG/SENNA 8.6 MG TAB PO SCH (09:39)
[2017-06-30 09:43] VITALS: O2SAT 96
[2017-06-30] MEDS ORDERED: DILA100C PO (10:47)
--- NOTE | 2017-06-30 10:50 | HHI.DS ---
Discharge Summary Admission Date Jun 22, 2017 at 18:22 Discharge Date: Jun 30, 2017 Admitting Diagnosis acute CVA with dysarthria (1) CVA (cerebral vascular accident) ICD Code: I63.9 - Cerebral infarction, unspecified Diagnosis: Principal (2) HLD (hyperlipidemia) ICD Code: E78.5 - Hyperlipidemia, unspecified Diagnosis: Principal (3) Leukocytosis ICD Code: D72.829 - Elevated white blood cell count, unspecified Diagnosis: Principal Procedures None Brief History - From Admission 57 y/o female with a history of a recent CVA 06/17/2017 and chronic headaches was brought to the ED with right hemiparesis and unable to speak. She was discharged home on Thursday and was given aspirin and Lipitor. Per the patient' s she was last seen normal at 8am this morning when he left for work, he states several people tried to call her but she did not answer, when he returned from work he found her on the floor, not moving and non verbal. He states since she was discharged she was feeling fine, no complaints at home, she was walking around and seemed normal. Patient is non verbal, so ROS can not be completed. states she was taking her prescriptions as prescribed. Multiple family members are at bedside and very concerned about the patient's outcome. They are upset that she was only discharged on Aspirin and not told who and when to follow up outpatient with. CBC/BMP: 06/28/17 0427 06/28/17 042 Significant Findings Laboratory Tests Test 06/27/17 21:50 06/28/17 04:27 06/29/17 05:30 Blood Gas HCO3 27 mmol/L (22-26) Blood Gas Base Excess 3.3 mmol/L (-2-2) Arterial Blood pH 7.45 (7.380-7.420) Neutrophils (%) (Auto) 72.7 % (16.0-70.0) Calcium Level 8.4 MG/DL (8.5-10.1) Imaging Last Impressions Head CT 06/28/17 0800 Signed Impressions: Service Date/Time: Wednesday, June 28, 2017 08:14 - CONCLUSION: 1. Subacute infarct right occipital lobe, and acute infarct left MCA territory with hematoma identified. There is mild mass effect. Pedro Phillips MD Chest X-Ray 06/28/17 0600 Signed Impressions: Service Date/Time: Wednesday, June 28, 2017 04:51 - CONCLUSION: No acute disease. Michael Campbell MD Brain MRI 06/27/17 0000 Signed Impressions: Service Date/Time: Tuesday, June 27, 2017 12:24 - CONCLUSION: Evolving changes in the brain that are probably all related to an ischemic embolic event. I don't see it in progression to suggest a subsequent embolic event. CTA of the carotids show no source of emboli; Further evaluation is suggested to exclude such. Followup MRI in 4-6 weeks of contrast would be of benefit to be sure these findings are evolving as we expect ischemic changes to do. Ronal Hong MD FACR Chest CT 06/24/17 0000 Signed Impressions: Service Date/Time: Saturday, June 24, 2017 19:40 - CONCLUSION: 1. The thoracic aorta is intact. 2. Suspected bibasilar areas of atelectasis or consolidation being worse on the left. 3. Small 0.5 cm pulmonary nodule at the left lower lung. This could be followed with a noncontrast CT examination in 6 months. Charlie Chand MD Abdomen/Pelvis CT 06/24/17 0000 Signed Impressions: Service Date/Time: Saturday, June 24, 2017 19:40 - CONCLUSION: 1. Thickening of the proximal sigmoid colon. This could be secondary to lack of distension and some degree of underlying hypertrophy. Underlying processes including some inflammation or a neoplasm cannot be excluded. The fat around the colon in this region appears normal. There are some scattered diverticula. 2. Hepatic steatosis. 3. 5 mm pulmonary nodule seen at the left lower lobe. This is a solitary pulmonary nodule more fully described on the CT of the chest report. Charlie Chand MD Head Magnetic Resonance Angiography 06/23/17 0000 Signed Impressions: Service Date/Time: Friday, June 23, 2017 08:24 - CONCLUSION: Normal examination. Flow is now seen within the right posterior cerebral artery peripheral distribution. Keron Wei Jr., MD PE at Discharge GENERAL: This is a well-nourished, able to speak two words. SKIN: No rashes, ecchymoses or lesions. Cool and dry. HEAD: Atraumatic. Normocephalic. no evidence of trauma on her head. EYES: Pupils equal round and slight reaction. ENT: Nose without bleeding, purulent drainage or septal hematoma. Airway patent. NECK: Trachea midline. No JVD or lymphadenopathy. Supple, nontender, no meningeal signs. CARDIOVASCULAR: Regular rate and rhythm without murmurs, gallops, or rubs. RESPIRATORY: Clear to auscultation. Breath sounds equal bilaterally. No wheezes , rales, or rhonchi. GASTROINTESTINAL: Abdomen soft, non-tender, nondistended. MUSCULOSKELETAL: Extremities without clubbing, cyanosis, or edema. No joint tenderness, effusion, or edema noted. NEUROLOGICAL: Awake and non verbal. moving four extremities. aphasia. Hospital Course This is a pleasant 57 y/o Female with recent CVA 06/17/17 with chronic headaches was brought in to ER with Right Hemiparesis and unable to speak she was discharged Home 06/20/17 on Aspirin and Lipitor, she was found her on the floor, not moving and non verbal. He states since she was discharged she was feeling fine, no complaints at home, she was walking around and seemed normal. Patient is non verbal. 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 discussed with patient and her relatives in the room. 06/24: Seen in her bedroom in the presence of her Father Michael Sam, Hannah Slade, her brother and sister, they already discussed with Neurology specialist Doctor Jose Eduardo, he suspected Aortic Arch atheroembolic event LEVY reviewed, probable post stroke Seizures started on Cerebyx yesterday, recommended to repeat CT brain and Chest and Abdomen, to look for aortic Arch rule out mass that could cause Hypercoagulable state, she will need inpatient rehab, no blood thinners, also contemplated ICU transfer. 06/25: Stable in her bedroom, already seen by Neurology specialist in am today doing better, she was able to move to the chair PT an OT to work with her during the afternoon, had small nodule on Chest area for follow up in six months as per guideline nodules below [address] brain with colon thickening asked for GI specialist consult. 06/26: Seen by GI specialist recommended due to patient without Colonoscopy to hold for this procedure for 4 to 6 weeks, tumor markers asked, EGD and Colonoscopy in 4 to 6 weeks, asked for Stool for C Diff, C/S, Giardia, LINUS, AFP , Ca19-9, seen in her bedroom, discussed with her Mr. Harinder Hills, the patient does not need the March cath removed, also will discontinue IV fluids she is eating and drinking well. was unable to take her Potassium chloride pill switch to liquid form and follow Potassium level at 1400 hours today. 06/27: Patient seen in her bedroom in the presence of Nurse Miss Neves and her Mr. Harinder Hills. as per and nurse the patient fell yesterday at the restroom, she states she hit her head and today has More difficulty to Speak as per her she is only able to pronounce two words but from yesterday denoted some improvement but today is the same as before, was contacted Doctor Fullop and recommended to perform and MRI of the Brain and follow now. 06/28: Seen in her bedroom, no complaint, nerve specialist following, Left Pulmonary Nodule, recommended PFTs for tomorrow in am, follow up Chest CT as outpatient in 3 months. recommended for rehab when okay with Neurology. Neurology specialist following, recommended to continue on hold for antiplatelets for now due to hemorrhagic conversion, not yet cleared for Rehab. 06/29: Stable in her bedroom in the presence of her Sister, awaiting final recommendations by Neurology to discharge to Inpatient Rehabilitation. 06/30: Discussed with patient and her in the room okay to transfer to [facility], will go at this time once cleared by Neurology specialist, No nausea, vomit or diarrhea. 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 rehab doctors can follow levels and make further adjustments if needed repeat in 1 week; if reduced/resolved ich, then start aspirin 81mg qdaily f/u mrv brain appreciate heme/pulm/gi services rehab planning today to yanira from neuro d/w pt and spouse. answered their questions I speak with nurse and He states Doctor Francisco Whitt gave him the Order to clear the patient from Neurology standpoint to be transferred to [facility] I place the order at this time. 10:44 AM. Assessment and Plan 57 y/o female with a history of a recent CVA 06/17/2017 and chronic headaches was brought to the ED with right hemiparesis and unable to speak. She was discharged home on Thursday and was given aspirin and Lipitor. Per the patient' s she was last seen normal at 8am this morning when he left for work, he states several people tried to call her but she did not answer, when he returned from work he found her on the floor, not moving and non verbal. Left Infarction involving The left MCA territory with scattered areas of Hemorrhage within the infarct bed, Subacute infarct involving the right occipital lobe, The Multifocality call attention about Embolic Event. continue on Hold her antiplatelets. 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 new CT brain no change from yesterday Stable improving condition, today transfer to the chair by herself , will work with Physical Therapy and Occupational therapy later today, found Lung Nodule less than 6 mm agree with follow up in six months, also has Colon thickening asked for GI specialist consult. Seen by GI specialist recommended due to patient without Colonoscopy to hold for this procedure for 4 to 6 weeks, tumor markers asked, EGD and Colonoscopy in 4 to 6 weeks, asked for Stool for C Diff, C /S, Giardia, LINUS, AFP, Ca19-9. Pulmonary Nodule for follow up as outpatient as per nerve specialist. HLD, chronic -High intensity Statin, LDL 108 need to be below 70. Leukocytosis, likely reactive, Improved, UA negative for infection. Severe Tobacco dependence strongly recommended to stop smoking. started on Bronchodilator, Mucolytic and incentive spirometry. Medical Non compliance the patient continue smoking even having this pathology. Hypokalemia Replaced. Status post fall asked by Neurology for MRI brain at this time order placed by me. DVT prophylaxis: SCDs, hold chemical for now for possible hemorrhage Discussed Condition With Patient and in the room I asked the nurse to get the clearance from Neurology he was called by nurse and Neurology specialist Doctor all questions answered to the best of my abilities. Discharge Planning Already Set for CIR starting next week on Thursday or Thursday. Pt Condition on Discharge: Good Discharge Disposition: Rehab Inpatient Discharge Time: > 30 minutes Discharge Instructions DIET: Follow Instructions for: Heart Healthy Diet Activities you can perform: Regular-No Restrictions Michael Brooks MD Jun 30, 2017 10:50
[2017-06-30 12:17] VITALS: BP 119/73; PULSE 77; RESP 18; TEMP 98.2; O2SAT 95
--- NOTE | 2017-06-30 16:32 | HHI.HCPN ---
Reason for visit a. To assist with evaluation and management of symptoms including: weakness, aphasia, debility b. To assist medical decision maker(s) with: better understanding of current medical conditions; weighing benefits/burdens of medical treatment options; making medical treatment decisions. . Subjective/Interval History Ms. Hills was seen and assessed in room 1513 status post left MCA infarct. Family was also present. Hemodynamically stable. Lab work relatively normal. project management specialist following, Left Pulmonary Nodule, recommended PFTs for tomorrow in am, follow up Chest CT as outpatient in 3 months. Follow-up CT head on 06/28/17. There is a history of left MCA territory infarction with associated hemorrhage in the left frontal region. This is not significantly changed. Right occipital infarct is also noted with hypodensity seen. There is a mild left ventricular effacement. There is 1.5 mm of midline shift. No fractures. His occupational and speech therapy continue to follow. Patient showing improvement. Currently on mechanically soft diet with thin liquids. Plan to transfer to [facility] inpatient rehabilitation today. . Advance Directives Advance Directive Specifics Documented care wishes: No known documented care wishes were completed. . Objective Vital Signs Date Time Temp Pulse Resp B/P (MAP) Pulse Ox O2 Delivery O2 Flow Rate FiO2 06/30/17 12:17 98.2 77 18 119/73 (88) 95 06/30/17 09:43 96 06/30/17 08:05 98.1 75 18 121/65 (83) 96 06/30/17 04:40 98.8 80 18 99/58 (72) 96 06/30/17 00:30 98.1 77 19 100/52 (68) 94 06/29/17 21:30 21 06/29/17 21:00 98.6 84 18 109/56 (73) 95 06/29/17 20:00 84 06/29/17 16:36 98.0 86 18 100/72 (81) 93 Intake & Output 06/30/17 06/30/17 06:59 18:59 Intake Total 400 ml Balance 400 ml Intake Oral 400 ml # Voids 0 # Bowel Movements 0 Physical Exam CONSTITUTIONAL/GENERAL: This is an adequately nourished patient, in no apparent distress. TUBES/LINES/DRAINS: SKIN:. Ecchymoses on upper extremities. No wounds seen anteriorly. Skin temperature appropriate. Not diaphoretic. HEAD: Atraumatic. Normocephalic. EYES: Pupils equal and round and reactive. No scleral icterus. No injection or drainage. Fundi not examined. ENT: Hearing grossly normal. Nose without bleeding or purulent drainage. NECK: Trachea midline. Supple, nontender. No palpable thyroid enlargement or nodularity. CARDIOVASCULAR: Regular rate and rhythm without murmurs, gallops, or rubs. No JVD. Peripheral pulses symmetric. RESPIRATORY/CHEST: Symmetric, unlabored respirations. Clear to auscultation. Breath sounds equal bilaterally. GASTROINTESTINAL: Abdomen soft, non-tender, nondistended. No guarding. Bowel sounds present. GENITOURINARY: Without palpable bladder distension. MUSCULOSKELETAL: Extremities without clubbing, cyanosis, or edema. LYMPHATICS: No palpable cervical or supraclavicular adenopathy. NEUROLOGICAL: Alert. Sitting upright. Able to speak 1-3 words. Smiling. Residual right-sided hemiparesis. PSYCHIATRIC: No obvious anxiety/depression. no apparent hallucinations or other psychotic thought process. . Diagnostic Tests Laboratory Laboratory Tests Test 06/27/17 21:50 06/28/17 04:27 06/29/17 05:30 Blood Gas Puncture Site LT RADIAL Blood Gas Patient Temperature 98.6 Blood Gas HCO3 27 mmol/L (22-26) Blood Gas Base Excess 3.3 mmol/L (-2-2) Blood Gas Oxygen Saturation 94 % (90-100) Arterial Blood pH 7.45 (7.380-7.420) Arterial Blood Partial Pressure CO2 40 mmHg (38-42) Arterial Blood Partial Pressure O2 80 mmHg (61-120) Arterial Blood Oxygen Content 17.2 Vol % (12.0-20.0) Arterial Blood Carboxyhemoglobin 1.1 % (0-4) Arterial Blood Methemoglobin 1.0 % (0-2) Blood Gas Hemoglobin 13.0 G/DL (12.0-16.0) Oxygen Delivery Device ROOM AIR Blood Gas Inspired Oxygen 21 % White Blood Count 8.8 TH/MM3 (4.0-11.0) Red Blood Count 4.41 MIL/MM3 (4.00-5.30) Hemoglobin 13.5 GM/DL (11.6-15.3) Hematocrit 40.1 % (35.0-46.0) Mean Corpuscular Volume 91.1 FL (80.0-100.0) Mean Corpuscular Hemoglobin 30.7 PG (27.0-34.0) Mean Corpuscular Hemoglobin Concent 33.7 % (32.0-36.0) Red Cell Distribution Width 14.4 % (11.6-17.2) Platelet Count 214 TH/MM3 (150-450) Mean Platelet Volume 10.4 FL (7.0-11.0) Neutrophils (%) (Auto) 72.7 % (16.0-70.0) Lymphocytes (%) (Auto) 16.8 % (9.0-44.0) Monocytes (%) (Auto) 8.0 % (0.0-8.0) Eosinophils (%) (Auto) 1.6 % (0.0-4.0) Basophils (%) (Auto) 0.9 % (0.0-2.0) Neutrophils # (Auto) 6.4 TH/MM3 (1.8-7.7) Lymphocytes # (Auto) 1.5 TH/MM3 (1.0-4.8) Monocytes # (Auto) 0.7 TH/MM3 (0-0.9) Eosinophils # (Auto) 0.1 TH/MM3 (0-0.4) Basophils # (Auto) 0.1 TH/MM3 (0-0.2) CBC Comment DIFF FINAL Differential Comment Blood Urea Nitrogen 15 MG/DL (7-18) Creatinine 0.62 MG/DL (0.50-1.00) Random Glucose 84 MG/DL (74-106) Calcium Level 8.4 MG/DL (8.5-10.1) Phosphorus Level 3.8 MG/DL (2.5-4.9) Magnesium Level 2.0 MG/DL (1.5-2.5) Sodium Level 140 MEQ/L (136-145) Potassium Level 3.5 MEQ/L (3.5-5.1) Chloride Level 106 MEQ/L (98-107) Carbon Dioxide Level 29.5 MEQ/L (21.0-32.0) Anion Gap 5 MEQ/L (5-15) Estimat Glomerular Filtration Rate 100 ML/MIN (>89) Phenytoin (Dilantin) Level 15.0 MCG/ML (10.0-20.0) 18.6 MCG/ML (10.0-20.0) . Result Diagram: 06/28/1742606/28/17426 Imaging Last [address] 06/28/17 0800 Signed Impressions: Service Date/Time: Wednesday, June 28, 2017 08:14 - CONCLUSION: 1. Subacute infarct right occipital lobe, and acute infarct left MCA territory with hematoma identified. There is mild mass effect. Pedro Phillips MD Chest X-Ray 06/28/17 0600 Signed Impressions: Service Date/Time: Wednesday, June 28, 2017 04:51 - CONCLUSION: No acute disease. Michael Campbell MD . Procedures 06/23/17: EEG . 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 Symptom Scale: (1) Anxiety (2) Pain (3) Weakness Pertinent Non-Medical Issues Psychosocial:Patient is . 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 She has 2 children, a son and a daughter, who attend [employer]. Spiritual: Pending further discussion with patient/family. Legal: Per [place] statutes, in the absence of written advanced directives healthcare proxy decision-making falls to the patient's . Ethical issues impacting care: No known ethical issues impacting care at this time. . Important Contacts [place], : [phone] . Prognosis Patient is a 57-year-old female who has been relatively healthy at baseline. She is an active smoker. Patient was hospitalized with a CVA on 06/17/17 and discharged on 06/20/17. She returned to [facility] 2 days later on 2016 and was diagnosed with a second CVA, large left MCA infarct. Neurology suspecting aortic arch atheroembolic event. CECI reviewed. Patient will need placement at SNF for rehabilitation upon discharge. Prognosis is guarded. . Code Status: Full Code Plan * FULL CODE * Decision-making: Per [place] statutes, in the absence of written advanced directives health care decision-making falls to the patient's * Goals: Family expressing extremely aggressive goals at this time. * Met with multiple family members at bedside to provide an update on patient's clinical condition and discuss medical treatment goals.Dr. Whitt placed and order for the patient to be transferred to critical care secondary to somnolence and ongoing neurological evaluations. * Symptom management- dysarthria: Showing improvement * Symptom management - weakness: Patient able to stand, able to prove V wave and chief learning officer with right hand. Residual right-sided hemiparesis. * project management specialist following, Left Pulmonary Nodule, recommended PFTs for tomorrow in am, follow up Chest CT as outpatient in 3 months. * Follow-up CT head on 06/28/17. There is a history of left MCA territory infarction with associated hemorrhage in the left frontal region. This is not significantly changed. Right occipital infarct is also noted with hypodensity seen. There is a mild left ventricular effacement. There is 1.5 mm of midline shift. No fractures. * Physical, occupational and speech therapy continue to follow. Patient showing improvement. Currently on mechanically soft diet with thin liquids. Plan to transfer to [facility] rehabilitation today 06/30/2017. . Attestation To help prompt me to consider important information that might be impacting today's encounter and assessment, information from prior notes written by myself or my colleagues may have been "brought forward" into today's note. My signature on this note, however, is an attestation that I personally performed the exam, history, and/or decision-making noted today, and, unless otherwise indicated, the interactions with patient, family, and staff as well as the review of records all occurred today. I also attest that the listed assessment and stated plan reflect my best clinical judgment today based on the combination of historical information, prior notes, and today's exam/ interactions. When time spent is documented, it refers only to time spent today by the signer, or if indicated, combined time spent today by collaborating physician/nurse practitioner. . Linnette Xiao Jun 30, 2017 16:31
[2017-06-30] MEDS ORDERED: PHENYTOIN SODIUM 100 MG CAP PO SCH (18:00)
[2017-07-01] MEDS ORDERED: PHENYTOIN SODIUM 100 MG CAP PO SCH (21:00)
[2017-07-02 19:54] LABS: BETA2 GLYCOPROTEIN I AB IGA LESS THAN 9.0 SAU (< OR = 20)
[2017-07-08] MEDS ORDERED: WHEEMIS3 (14:11)
[2017-07-08] MEDS ORDERED: COMMODE 3-IN-11 MIS (14:11)
[2017-07-13] MEDS ORDERED: DILA100C PO (10:38)
[2017-07-13] MEDS ORDERED: ASPI81CH25 PO (10:38)
[2017-07-13] MEDS ORDERED: ATOR1TAB18 PO (10:38)
== END 2017-06-30 13:07 | DRG 64 ==
LOC: NEPC 16:24 → NEDA 18:22 → N05B 21:48 → N03B 06-24 16:51 → N05B 06-29 05:47
PROVIDERS: ADMIT Internal Medicine; ATTEND Internal Medicine
DX: I63.512 Cerebral infarction due to unspecified occlusion or stenosis of left middle cerebral artery (principal); I61.1 Nontraumatic intracerebral hemorrhage in hemisphere, cortical; G81.91 Hemiplegia, unspecified affecting right dominant side; R47.01 Aphasia; D68.59 Other primary thrombophilia; R56.9 Unspecified convulsions; H53.462 Homonymous bilateral field defects, left side; F17.210 Nicotine dependence, cigarettes, uncomplicated; E78.2 Mixed hyperlipidemia; Z51.5 Encounter for palliative care; R91.1 Solitary pulmonary nodule; K76.0 Fatty (change of) liver, not elsewhere classified; E87.6 Hypokalemia; I69.398 Other sequelae of cerebral infarction
CPT/HCPCS: 36600; 70450; 70544; 70551; 70553; 71010; 71260; 74177; 80048; 80053; 80061; 80185; 81001; 82105; 82378; 82550; 82805; 82948; 83036; 83090; 83735; 84100; 84132; 84439; 84443; 84484; 85025; 85300; 85303; 85306; 85307; 85610; 85613; 85730; 86038; 86146; 86147; 86301; 86592; 87205; 87328; 87329; 87493; 87506; 87641; 93005; 93306; 95819; A9579; J1815; J7030; Q2009; Q9967